=== PATIENT | female | born 1935 | race Caucasian/White ===

== ENCOUNTER → 2016-10-11 | Outpatient (CLI) | payer OTHER ==
[~2016-10-11] VITALS: Ht 149.9 cm; Wt 61.0 kg
[~2016-10-11] MED LIST: ADVAIR 100-501 EACH INH; ADVAIR HFA 45-218 GM IH; AZOR 10-40 MG1 EACH PO; BENTYL 20 MG TA20 M1 PO; BYSTOLIC 5 MG5 M1 PO; CLONIDINE0.1 PO; COMBIVENT INH; COMPOUNDED CREAM TOP; DERMATOP60 GM; HYDRALAZINE 2525 MG PO; LORTAB 5-500 T1 EAC1 PO; LOSARTAN POTAS100 MG PO; MOBIC7.5 M1 PO; NEXIUM40 MG PO; NORVASC5 MG PO; OXYCODONE-ACET1 EACH PO; OXYCONTIN10 M1 PO; OXYCONTIN15 MG PO; PAROXETINE HCL10 MG PO; PERCOCET 5-3251 EACH PO; PREDNISONE 10 M10 M1 PO; PROVENTIL HFA6.7 G1 INH; SINGULAIR 10 MG10 M1 PO; SPIRONOLACTONE25 M1 PO; TIZANIDINE HCL 22 M1 PO; VOLTAREN GEL 1100 G1 TOP
--- NOTE | ~2016-10-11 | HPC ---
[facility] [place] [address] PAIN MANAGEMENT CONSULTATION Name: ALEJANDRA RICO [id number] Admission: 10/11/16 Attend Phys: Kit Schneider DO Discharge: Date of : 33 Report #: [id number] THIS REPORT FOR: //name// CC: Pedro Schneider The patient is an extremely pleasant 81-year-old female well known to pain clinic, being treated for symptomatic cervical spondylosis, myofascial pain requiring complex medication management. Last seen in the pain clinic 07/26/2016. The patient was continued on baseline medication including OxyContin 15 mg b.i.d., Percocet 5/325, limit 45 tablets for 30 days, voltaren gel topically. He returns to pain clinic today noting that medications are providing sufficient analgesia to participate in activities of daily living. However, she is having some increasing pain in the left side of her neck. We had prior done cervical facet joint injections about a year ago, 10/20/2015. PHYSICAL EXAMINATION: Shows an 81-year-old female. BMI is 27.1 kilograms per meter squared. Pain is primarily in neck, left shoulder, she rates it as a 9/10, sharp, aching sensation, exacerbated with stress and turning her head. BMI is 27.1 kilograms per meter squared. Vital signs showed modest hypertension 159/77, pulse 100, respirations 16. Cervical range of motion is limited, tender in the superior cervical facets. Upper extremity strength is preserved. Gait is tandem. Lower extremity strength is preserved. Skin integument is intact. ASSESSMENT: 1. Symptomatic cervical spondylosis, myofascial pain requiring complex medication management. We reviewed the fact that opiate medications are being used to provide analgesia adequate to support activities of daily living, not attempting to achieve a specific pain score on the 0-10 Visual Analog Scale. The current opiate medications are providing sufficient analgesia to allow the patient to participate in activities of daily living. The patient is not exhibiting any aberrant behavior suggestive of drug diversion. The patient is not having any adverse reactions to medications. The patient is not suffering from daytime somnolence or mental acuity changes. The patient is managing opiate-induced constipation with appropriate zqkx-cuj-exolrud agents and dietary considerations. The patient was counseled on concern for caution with operating a motor vehicle while using opiate medications. A physical exam was performed and the patient's functional status was evaluated. All patients with back pain were advised against the bed rest greater than 4 days and were advised to return to normal activities. Pain score assessment was noted and the treatment plan was reviewed with the patient. All current medications, both prescribed and OTC were reviewed and reconciled on the [address] [address] PAIN MANAGEMENT CONSULTATION Name: ALEJANDRA RICO Room #: REG CLI Elaine#: [id number] Admission: 10/11/16 Attend Phys: Kit Schneider DO Discharge: Date of : 33 Report #: [id number] electronic medical record. Tobacco screening was accomplished and smoking cessation was advised when indicated. BMI was noted and diet/exercise modification was recommended for all patients following outside normal parameters. I reviewed with the patient today their responsibilities to safeguard prescription medications, reviewed their responsibility to utilize medications only as prescribed by the physician. They are to seek and receive pain medications only from 1 physician group ( [facility]). They are to use 1 pharmacy and keep the clinic informed if they change pharmacies. Their responsibilities include making followup visits in a timely fashion and to avoid abrupt discontinuation of medication usage. Their responsibilities further include bringing their medications (bottles from the pharmacy with residual pills) to the visit for possible confirmation of pill counts and the patient understands it is their responsibility to submit to random drug screens to ensure both that the medications prescribed are present, and that no other controlled substances are present. All prescriptions provided today were generated electronically. RECOMMENDATION: Continue current medication schedule 2 narcotic unchanged, OxyContin 15 mg b.i.d., Percocet 10/325 one tablet up to 2 a day, limit 45 tablets for 30 days and Voltaren gel topically. I have taken the liberty of writing for 3 months of current medications. 2. Acute exacerbation of cervical spondylosis, left side. RECOMMENDATION: Cervical facet joint injections under fluoroscopy, left C2-C3, C3-C4 and C4-C5. PROCEDURE NOTE: After written informed consent was obtained, the patient was taken to the fluoroscopy suite and placed in prone position. After sterile prep and drape, skin wheals with Xylocaine raised, three 22-gauge stylet needle was placed to contact posterior aspect of the mid lateral mass of the left C2-C3, C3-C4, C4-C5 cervical facets. AP and lateral projections showed good needle placement. A 2 mg of Decadron plus 1 mL of 0.5% preservative-free bupivacaine was injected at all three sites. All three needles removed. The area was cleansed, Band-Aids applied. Fluoroscopy time was under 15 seconds. The patient was discharged in good and stable condition. <ELECTRONICALLY SIGNED> By: Kit Schneider DO 10/14/16 0917 [id number] Kit Schneider, /nt
[2016-10-11 12:26] VITALS: BP 159/77
== END ==
LOC: PAIN 12:00
DX: M47.812 Spondylosis without myelopathy or radiculopathy, cervical region (principal); M47.22 Other spondylosis with radiculopathy, cervical region; M79.1 Myalgia; I10 Essential (primary) hypertension; Z87.891 Personal history of nicotine dependence

== ENCOUNTER → 2017-01-23 | Outpatient (CLI) | payer OTHER ==
[~2017-01-23] VITALS: Ht 149.9 cm; Wt 61.7 kg
--- NOTE | ~2017-01-23 | HPC ---
[facility] [place] [facility] [place] [address] PAIN MANAGEMENT CONSULTATION Name: ALEJANDRA RICO Room #: REG Beba Henry#: [id number] Admission: 01/23/17 Attend Phys: Kit Schneider DO Discharge: Date of : 33 Report #: [id number] THIS REPORT FOR: //name// CC: Pedro Schneider HISTORY OF PRESENT ILLNESS: The patient is a very pleasant 81-year-old female typically treated for cervical spondylosis, myofascial pain requiring complex medication management. Last seen in pain clinic on 10/11/2016. We ostensibly continued the patient on OxyContin 15 mg b.i.d. with Percocet 5/325 one tablet 2-3 times a day, limit 45 tablets for 30 days. Continue his Voltaren gel topically. I did a left C2-C3, C3-C4 and C4-C5 facet joint injections at last visit. That afforded good yet very transient relief for about 3-4 days. I do not think that amount of relief is worth risks of the procedure, we discussed with the patient today. Unfortunately, the patient also did have a little confusion with her medications. She is getting little forgetful with age. She is seen today in the company of an adult daughter who is very supportive. She notes that she had forgotten to mail her last prescription and she went for several days without her opiate analgesics. Piecing together the patient's history, it does not sound like she had terrible opiate withdrawal symptoms, though the daughter notes that she was quite emotional and "angry" during this interval. She is back taking her current medication. Today, I stressed the need to call to make a clinic visit when she turns in her third prescription (the 8-week release prescription). PHYSICAL EXAMINATION: Today shows pleasantly befuddled 81-year-old female with pain in the left neck and shoulder. She rates pain "10" on a 0-10 visual analog scale. Notes pain is exacerbated with turning her head and stress. Physical examination shows BMI of 27.5 kilograms per meter squared. Blood pressure is modestly elevated at 161/99, pulse 79, respirations 20. She is little bit hard of hearing. Cervical range of motion is limited, tender over the left cervical facets. Upper extremity strength is preserved, though range of motion in the left shoulder exacerbates pain. We reviewed the fact that opiate medications are being used to provide analgesia adequate to support activities of daily living, not attempting to achieve a specific pain score on the 0-10 Visual Analog Scale. The current opiate medications are providing sufficient analgesia to allow the patient to participate in activities of daily living. The patient is not exhibiting any aberrant behavior suggestive of drug diversion. The patient is not having any adverse reactions to medications. The patient is not suffering from daytime somnolence or mental acuity changes. The patient is managing opiate-induced constipation with appropriate sfig-frd-gdektaa agents and dietary considerations. The patient was counseled on concern for caution with operating [address] [address] PAIN MANAGEMENT CONSULTATION Name: JACKYALEJANDRA ALEKSANDRA Room #: REG ALEKSANDAR Henry#: [id number] Admission: 01/23/17 Attend Phys: Kit Schneider DO Discharge: Date of : 33 Report #: [id number] a motor vehicle while using opiate medications. A physical exam was performed and the patient's functional status was evaluated. All patients with back pain were advised against the bed rest greater than 4 days and were advised to return to normal activities. Pain score assessment was noted and the treatment plan was reviewed with the patient. All current medications, both prescribed and OTC were reviewed and reconciled on the electronic medical record. Tobacco screening was accomplished and smoking cessation was advised when indicated. BMI was noted and diet/exercise modification was recommended for all patients following outside normal parameters. I reviewed with the patient today their responsibilities to safeguard prescription medications, reviewed their responsibility to utilize medications only as prescribed by the physician. They are to seek and receive pain medications only from 1 physician group ( [facility]). They are to use 1 pharmacy and keep the clinic informed if they change pharmacies. Their responsibilities include making followup visits in a timely fashion and to avoid abrupt discontinuation of medication usage. Their responsibilities further include bringing their medications (bottles from the pharmacy with residual pills) to the visit for possible confirmation of pill counts and the patient understands it is their responsibility to submit to random drug screens to ensure both that the medications prescribed are present, and that no other controlled substances are present. All prescriptions provided today were generated electronically. ASSESSMENT: Cervical spondylosis, myofascial pain requiring complex medication management, stable on baseline medications. RECOMMENDATIONS: Continue current medications unchanged, OxyContin 15 mg b.i.d. and Percocet 5/325, limit 45 tablets for 30 days. I have taken the liberty of putting a small post-it note on the 8-week prescription with her OxyContin and her Percocet reminding the patient to call for an office appointment. Discharged in good and stable condition today after approximately 25-minute visit was spent counseling the patient, reviewing interval history. I told the daughter I appreciated her participation in the clinic visit, again the patient is becoming a little poor of a historian. We did talk a little bit today about using a drug dispensing aide (weekly pill box?) to keep the patient's medication on track. <ELECTRONICALLY SIGNED> By: Kit Schneider DO 01/24/17 0925 [id number] Kit Schneider DO /nt
[2017-01-23 09:55] VITALS: BP 161/99
== END | disposition home or self-care (01) ==
LOC: PAIN 07:55
DX: M47.892 Other spondylosis, cervical region (principal); G89.29 Other chronic pain; M79.1 Myalgia; Z87.891 Personal history of nicotine dependence

== ENCOUNTER → 2017-04-10 | Outpatient (CLI) | payer OTHER ==
[~2017-04-10] VITALS: Ht 149.9 cm; Wt 62.7 kg
[2017-04-10 11:05] VITALS: BP 176/84
== END | disposition home or self-care (01) ==
LOC: PAIN 06:46
DX: M47.812 Spondylosis without myelopathy or radiculopathy, cervical region (principal); M54.81 Occipital neuralgia; G62.9 Polyneuropathy, unspecified; F03.90 Unspecified dementia, unspecified severity, without behavioral disturbance, psychotic disturbance, mood disturbance, and anxiety; Z87.891 Personal history of nicotine dependence

== ENCOUNTER → 2017-06-19 | Outpatient (CLI) | payer OTHER ==
[~2017-06-19] VITALS: Ht 149.9 cm; Wt 63.0 kg
--- NOTE | ~2017-06-19 | HPC ---
[facility] [place] [address] [place] [address] PAIN MANAGEMENT CONSULTATION Name: ALEJANDRA RICO Room #: REG Beba Henry#: [id number] Admission: 06/19/17 Attend Phys: Kit Schneider DO Discharge: Date of : 33 Report #: [id number] THIS REPORT FOR: //name// CC: Pedro Schneider DATE OF SERVICE: 06/19/2017 HISTORY OF PRESENT ILLNESS: The patient is a pleasant 82-year-old female being treated for cervical spondylosis, greater occipital neuralgia, neuropathic pain, requiring high risk complex medication management. Last seen in Pain Clinic on 04/15/2017. We will continue patient on baseline medication including OxyContin 15 mg b.i.d.; Percocet 5/325, 1-2 tablets daily, limit 45 tablets for 30 days; and Voltaren gel topically to the right neck and shoulder. Returns to Pain Clinic today. She has been stable on her baseline medications. She notes her pain is quite elevated today at 10 on a VAS. She had difficulty getting her prescriptions filled, again. Today, we did talk about moving her prescriptions to the pharmacy downstairs. Long story short is that patient's insurance company switched from ____ Pharmacy to another one and the current pharmacy does not always have her low-dose OxyContin and Percocet. She goes for days between refills on medications that should be on a fairly consistent basis. Regarding her hypertension today, she is on multiple antihypertensives including amlodipine, hydralazine. The patient did take her medicine. Blood pressure is 191/89 today. She associates this again with ongoing stress. PHYSICAL EXAMINATION: Otherwise ____ her subjective pain score, 82-year-old female, BMI is 28.1 kg/m2. She is smiling, jovial and moving actually fairly freely. She has pain to the neck, left shoulder, but moves her arms or reasonably well. Again, blood pressure is elevated 191/89, pulse 81, respirations 14. We reviewed the fact that opiate medications are being used to provide analgesia adequate to support activities of daily living, not attempting to achieve a specific pain score on the 0-10 Visual Analog Scale. The current opiate medications are providing sufficient analgesia to allow the patient to participate in activities of daily living. The patient is not exhibiting any aberrant behavior suggestive of drug diversion. The patient is not having any adverse reactions to medications. The patient is not suffering from daytime somnolence or mental acuity changes. The patient is managing opiate-induced constipation with appropriate qldo-ehk-xorebuz agents and dietary considerations. The patient was counseled on concern for caution with operating a motor vehicle while using opiate medications. A physical exam was performed and the patient's functional status was evaluated. [address] [address] PAIN MANAGEMENT CONSULTATION Name: ALEJANDRA RICO Room #: REG CLBeba Henry#: [id number] Admission: 06/19/17 Attend Phys: Kit Schneider DO Discharge: Date of : 33 Report #: [id number] All patients with back pain were advised against the bed rest greater than 4 days and were advised to return to normal activities. Pain score assessment was noted and the treatment plan was reviewed with the patient. All current medications, both prescribed and OTC were reviewed and reconciled on the electronic medical record. Tobacco screening was accomplished and smoking cessation was advised when indicated. BMI was noted and diet/exercise modification was recommended for all patients following outside normal parameters. I reviewed with the patient today their responsibilities to safeguard prescription medications, reviewed their responsibility to utilize medications only as prescribed by the physician. They are to seek and receive pain medications only from 1 physician group ( [facility]). They are to use 1 pharmacy and keep the clinic informed if they change pharmacies. Their responsibilities include making followup visits in a timely fashion and to avoid abrupt discontinuation of medication usage. Their responsibilities further include bringing their medications (bottles from the pharmacy with residual pills) to the visit for possible confirmation of pill counts and the patient understands it is their responsibility to submit to random drug screens to ensure both that the medications prescribed are present, and that no other controlled substances are present. All prescriptions provided today were generated electronically. ASSESSMENT: Chronic pain syndrome, cervical spondylosis, greater occipital neuralgia, neuropathic pain component, requiring high risk complex medication management. RECOMMENDATIONS: 1. Buccal swab today for random drug screen, no aberrant behavior suggestive for drug diversion, simply complying with our opiate consent to treat contract. 2. Renew current medication including OxyContin 15 mg b.i.d.; Percocet 5/325, 1-2 tablets daily, limit 45 tablets for 30 days. I have taken the liberty of writing for 2 prescriptions. The patient is taken them downstairs to the [facility]. Hopefully, she will have more timely refills there. Follow up in 2 months for reevaluation. By: [id number] Kit Schneider, /nt
[2017-06-19 10:53] VITALS: BP 191/89
== END | disposition home or self-care (01) ==
LOC: PAIN 07:05
DX: M47.812 Spondylosis without myelopathy or radiculopathy, cervical region (principal); M54.81 Occipital neuralgia; G62.9 Polyneuropathy, unspecified; I10 Essential (primary) hypertension; Z79.899 Other long term (current) drug therapy; G89.4 Chronic pain syndrome; Z87.891 Personal history of nicotine dependence

== ENCOUNTER → 2017-10-02 | Outpatient (CLI) | payer OTHER ==
[~2017-10-02] VITALS: Ht 149.9 cm; Wt 59.2 kg
[~2017-10-02] MED LIST changes: +AMLODIPINE BESY10 MG PO; +AZITHROMYCIN 2250 MG PO; +BREO ELLIPTA 21 EACH INH; +IPRATROPIU0.2 MG/1 M INH; +KEFLEX250 MG PO; +LEVALBUTER0.63 MG/3 INH; +MOXIFLOXACIN3 ML OPHTHALMIC; +PERCOCET PO; +PREDNISOLONE 13.5 M1; +PREDNISONE 10 M10 MG PO; +PROTONIX 20 MG20 M1 PO; +VOLTAREN GEL 1100 G2 TOP
--- NOTE | ~2017-10-02 | HPC ---
[facility] [place] [address] PAIN MANAGEMENT CONSULTATION Name: ALEJANDRA RICO Room #: REG [facility] Elaine#: [id number] Admission: 10/02/17 Attend Phys: Kit Schneider DO Discharge: Date of : 33 Report #: [id number] THIS REPORT FOR: //name// CC: Pedro Schneider The patient is an 82-year-old female, long known to pain clinic, typically treated for cervical spondylosis, greater occipital neuralgia, requiring high risk complex medication management. The patient has not been seen since May. Continued on OxyContin 15 mg b.i.d. and Percocet 5/325 one tablet 2-3 times a day, limit 45 tablets for 30 days. Voltaren gel topically. She returns to the pain clinic today. We had a prolonged visit, greater than 45 minutes was spent with the patient and her daughter today. Last random drug screen 06/19/2017, was positive for prescribed medications and no others. The patient returns to pain clinic today noting medications generally are sufficient to enable her to participate in activities of daily living; however, she has ongoing pain in the left side of the neck, posterior occiput with ongoing headaches associated with some decreased auditory acuity. Notes pain is exacerbated with stress and turning her head. Tragically her dog was attacked by her granddaughter's dog, she had to put the 6-year-old animal down. She is emotionally distressed about this as one would expect. She has another older dog I believe about 10 or 12 years old at home still. She notes today pain is a 7 on a VAS, sharp, aching sensation, again posterior occiput on the left with some decreased auditory acuity in that side, exacerbated with stress, turning her head, bending or talking on the phone. PHYSICAL EXAMINATION: Again unchanged, 82-year-old female, BMI is 26.4 kg/m2. Blood pressure 151/76, pulse 79 and respirations 16. Alert and oriented to person, place and time, judged to be a reasonable historian, little hard of hearing. Cervical range of motion is limited, tender over the left superior cervical facets or over the greater occipital area. Upper extremity strength is generally preserved. Gait is mildly ataxic, actually tandem gait, but balance is a little poor, though she denies falling. Skin integument is intact. Long discussion today about therapeutic options, about stress in relation to pain. We talked about maintaining medication on appropriate schedule, keeping medications safeguarded (she does have a 4-year-old granddaughter that she watches sometimes). We reviewed the fact that opiate medications are being used to provide analgesia [address] [address] PAIN MANAGEMENT CONSULTATION Name: JACKYALEJANDRA ALEKSANDRA Room #: REG ALEKSANDAR Henry#: [id number] Admission: 10/02/17 Attend Phys: Kit Schneider DO Discharge: Date of : 33 Report #: [id number] adequate to support activities of daily living, not attempting to achieve a specific pain score on the 0-10 Visual Analog Scale. The current opiate medications are providing sufficient analgesia to allow the patient to participate in activities of daily living. The patient is not exhibiting any aberrant behavior suggestive of drug diversion. The patient is not having any adverse reactions to medications. The patient is not suffering from daytime somnolence or mental acuity changes. The patient is managing opiate-induced constipation with appropriate vnxm-sjg-hceukgc agents and dietary considerations. The patient was counseled on concern for caution with operating a motor vehicle while using opiate medications. A physical exam was performed and the patient's functional status was evaluated. All patients with back pain were advised against the bed rest greater than 4 days and were advised to return to normal activities. Pain score assessment was noted and the treatment plan was reviewed with the patient. All current medications, both prescribed and OTC were reviewed and reconciled on the electronic medical record. Tobacco screening was accomplished and smoking cessation was advised when indicated. BMI was noted and diet/exercise modification was recommended for all patients following outside normal parameters. I reviewed with the patient today their responsibilities to safeguard prescription medications, reviewed their responsibility to utilize medications only as prescribed by the physician. They are to seek and receive pain medications only from 1 physician group ( [facility]). They are to use 1 pharmacy and keep the clinic informed if they change pharmacies. Their responsibilities include making followup visits in a timely fashion and to avoid abrupt discontinuation of medication usage. Their responsibilities further include bringing their medications (bottles from the pharmacy with residual pills) to the visit for possible confirmation of pill counts and the patient understands it is their responsibility to submit to random drug screens to ensure both that the medications prescribed are present, and that no other controlled substances are present. All prescriptions provided today were generated electronically. ASSESSMENT: Symptomatic cervical spondylosis, greater occipital neuralgia, neuropathic pain requiring high risk complex medication management, stable on baseline medications. RECOMMENDATION: 1. We reviewed opiate consent to treat contract today. 2. Continue baseline medication unchanged, OxyContin 15 mg b.i.d. 3. We will increase hydrocodone 5/325, she has been using 45 tablets for 30 days, but notes that she does have episodes where she would require 2 tablets fairly regularly. We have elected to increase this to 60 tablets for 30 days, again encouraged using lowest dose possible. Continue Voltaren gel topically. [facility] [address] [place] [address] PAIN MANAGEMENT CONSULTATION Name: ALEJANDRA RICO Room #: URSZULA Henry#: [id number] Admission: 10/02/17 Attend Phys: Kit Schneider DO Discharge: Date of : 33 Report #: [id number] Follow up in 2 months for reevaluation. Discharged in good and stable condition after a 25+ minute visit spent counseling the patient. <ELECTRONICALLY SIGNED> By: Kit Schneider DO 10/03/17 0810 1220 [id number] Kit Schneider DO /nt
[2017-10-02 10:53] VITALS: BP 151/76
== END ==
LOC: PAIN 07:09
DX: M47.892 Other spondylosis, cervical region (principal); M54.81 Occipital neuralgia; Z79.899 Other long term (current) drug therapy

== ENCOUNTER 2017-11-11 13:53 | Inpatient (IN) | payer OTHER ==
[~2017-11-11] VITALS: Ht 149.9 cm; Wt 60.3 kg
--- NOTE | ~2017-11-11 | H ---
[facility] [place] [address] HISTORY AND PHYSICAL Name: ALEJANDRA RICO Room #: 431-P ADM IN M.R.#: [id number] Admission: 11/11/17 Attend Phys: Stephanie Guzman Discharge: Date of : 31 Report #: [id number] THIS REPORT FOR: //name// CC: Pedro Anne DATE OF SERVICE: 11/11/2017 CHIEF COMPLAINT: Shortness of breath. HISTORY OF PRESENT ILLNESS: The patient is an 82-year-old female with a history of COPD, came to the Emergency Room with complaints of shortness of breath. She said for a couple of weeks, she has had increased wheezing and nonproductive cough and gradual worsening shortness of breath, she thinks for about a month. Several weeks ago, she had an eye infection, which required treatment with antibiotic and steroid drops and she has been seeing the soil analyst. This has gradually been clearing, so her daughter thinks that maybe some of her pulmonary symptoms have been minimized as they were focused on treating her eye infection. She has had no fever, chills and just scant sputum production she described as yellow to green phlegm. She has had a lot of wheezing and a nonproductive cough. She does take prednisone at home and has been self dosing to treat her symptoms as well. PAST MEDICAL HISTORY: COPD due to asthma, hypertension. PAST SURGICAL HISTORY: She has had abdominal surgery in 2007, hysterectomy, appendectomy. FAMILY HISTORY: Noncontributory. SOCIAL HISTORY: No chronic alcohol or tobacco use. She lives with her daughter. ALLERGIES: SULFA. MEDICATIONS: Percocet, OxyContin, eyedrops, Protonix, Paxil, Singulair, dicyclomine, Advair, Combivent, oral prednisone 10 mg, Aneudy 10/40 mg, hydralazine 25 mg b.i.d. REVIEW OF SYSTEMS: As above. She denies headache, chest pain, fever, chills, nausea, vomiting, diarrhea, constipation, dysuria, syncope. OBJECTIVE: VITAL SIGNS: Temperature 36.9, pulse , respirations 24, blood pressure 119/92, O2 sat 97% on room air. GENERAL: She is awake and alert, no distress. HEAD AND NECK: Unremarkable. She is hard of hearing. She recognized me. [address] [place] [address] HISTORY AND PHYSICAL Name: ALEJANDRA RICO Room #: 431-P [facility] IN M.R.#: [id number] Admission: 11/11/17 Attend Phys: Stephanie Guzman Discharge: Date of : 33 Report #: [id number] NECK: No JVD. LUNGS: She has bilateral expiratory wheezing with a nonproductive cough. HEART: Regular, no murmur. ABDOMEN: Soft, normoactive bowel sounds. EXTREMITIES: No cyanosis, clubbing, but just trace edema in the right lower leg. NEUROLOGIC: Cranial nerves intact. Speech is fluent. Global strength 4/5 and equal bilaterally. LABORATORY AND X-RAY: Reviewed. ASSESSMENT: 1. Chronic obstructive pulmonary disease exacerbation. 2. Hypertension. 3. Chronic pain syndrome with chronic narcotic use. PLAN: Steroids, antibiotics, nebulized treatments and respiratory care to continue. I will ask Dr. Mcmillan to see her in consultation. She does have slight edema in the right leg, so order ultrasound, but she does not have any resting tachycardia or resting hypoxia to suggest pulmonary embolus. We will await the ultrasound result at this point. Lovenox for DVT prophylaxis. <ELECTRONICALLY SIGNED> By: Peewee Gan MD 11/12/17 1311 1635 1725 Peewee Gan MD /nt
--- NOTE | ~2017-11-11 | 2DMMODE ---
[facility] [address] [place] [address] 2 D/M-MODE ECHOCARDIOGRAM Name: JACKYALEJANDRA Room #: 431-P ADM IN M.R.#: [id number] Admission: 11/11/17 Attend Phys: Pedro Haney Discharge: Date of : 31 Date of Service: 11/13/17 1250 Report #: [id number] THIS REPORT FOR: //name// APPROVED REPORT Study performed: 11/13/2017 11:19:02 EXAM: Comprehensive 2D, Doppler, and color-flow Echocardiogram Patient Location: Echo lab Room #: 431 Status: routine BSA: 1.55 HR: 89 bpm BP: 161/82 mmHg Rhythm: Sinus/irregular Other Information Study Quality: Good/low parasternal window 2D Dimensions RVDd: 30.54 mm LVEF(%): 57.43 (>50%) IVSd: 8.37 (7-11mm) LVOT Diam: 18.93 (18-24mm) LVDd: 54.11 mm PWd: 8.59 (7-11mm) LVDs: 37.61 (25-40mm) Aortic Root: 34.44 mm Toro's LVEF: 57.43 % Volumes Left Atrial Volume (Systole) Single Plane 4CH: 76.52 mL Single Plane 2CH: 53.09 mL LA ESV Index: 43.00 mL/m2 Aortic Valve AoV Peak John.: 2.20 m/s AO Peak Gr.: 19.36 mmHg LVOT Max P.24 mmHg LVOT Max V: 1.52 m/s LUIZA Vmax: 1.94 cm2 Mitral Valve E/A Ratio: 0.7 MV Decel. Time: 261.59 ms MV E Max John.: 0.99 m/s MV A John.: 1.50 m/s MV PHT: 75.86 ms [facility] [place] [address] 2 D/M-MODE ECHOCARDIOGRAM Name: ALEJANDRA RICO Room #: 431-P [facility] IN M.R.#: [id number] Admission: 11/11/17 Attend Phys: Pedro Haney Discharge: Date of : 33 Date of Service: 11/13/17 1250 Report #: [id number] IVRT: 64.59 ms Pulmonary Valve PV Peak John.: 1.51 m/s PV Peak Gr.: 9.08 mmHg Pulmonary Vein P Vein S: 0.82 m/s P Vein A: 0.40 m/s P Vein D: 0.59 m/s P Vein A Dur.: 129.2 msec P Vein S/D Ratio: 1.39 Tricuspid Valve TR Peak John.: 2.99 m/s RAP Estimate: 5.00 mmHg TR Peak Gr.: 35.69 mmHg PA Pressure: 41.00 mmHg Left Ventricle The left ventricle is normal size. There is normal LV segmental wall motion. There is normal left ventricular wall thickness. Left ventricular systolic function is hyperdynamic. LVEF is 65-70%. Mild diastolic dysfunction is present (impaired relaxation pattern). Right Ventricle The right ventricle is normal size. The right ventricular systolic function is normal. Atria Left atrium is severely dilated. The right atrium size is normal. Aortic Valve Aortic valve leaflets are thickened. Trace aortic regurgitation. There is no aortic valvular stenosis. Mitral Valve Mitral valve leaflets are mildly thickened. Mild mitral regurgitation. Tricuspid Valve The tricuspid valve is normal in structure. Mild tricuspid regurgitation. Estimated PAP is 40-45mmHg. Pulmonic Valve Pulmonic valve is not well visualized. [employer] [address] [address] 2 D/M-MODE ECHOCARDIOGRAM Name: ALEJANDRA RICO Room #: 431-P [facility] IN [facility]#: [id number] Admission: 11/11/17 Attend Phys: Pedro Haney Discharge: Date of : 33 Date of Service: 11/13/17 1250 Report #: [id number] The aortic root is normal in size. The ascending aorta is normal in size. IVC is normal in size and collapses >50% with inspiration. Pericardium There is no pericardial effusion. <Conclusion> Left ventricular systolic function is hyperdynamic. There is normal LV segmental wall motion. LVEF is 65-70%. Left atrium is severely dilated. Aortic valve leaflets are thickened. Trace aortic regurgitation, no stenosis. Mitral valve leaflets are mildly thickened. Mild mitral regurgitation. Mild tricuspid regurgitation. Estimated pulmonary artery pressure is 40-45mmHg. There is no pericardial effusion. <ELECTRONICALLY SIGNED> By: Nj Carlos MD, FACC 11/13/17 1250 1250 49 Nj Carlos MD, FACC /INF
--- NOTE | ~2017-11-11 | EKG ---
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 : 1935 Requested By: Tristin Stockton Order Number: [id number] MD: Nj Carlos Measurements Intervals [place] Rate: 96 P: -55 MN: 138 QRS: 43 QRSD: 144 T: 13 QT: 400 QTc: 506 Interpretive Statements Sinus or ectopic atrial rhythm Frequent supraventricular complexes Right bundle branch block Compared to ECG 05/04/2009 07:29:11 Atrial premature complex(es) now present Electronically Signed On 11-12-2017 8:36:32 [employer] by Nj Carlos [email or web address] <ELECTRONICALLY SIGNED> By: Nj Carlos MD, [facility] 11/12/17 0836 1427 1427 Nj Carlos MD, [facility] /EPI
--- NOTE | ~2017-11-11 | D ---
[facility] [place] [address] DISCHARGE SUMMARY Name: ALEJANDRA RICO Room #: 431-P [facility] IN M.R.#: [id number] Admission: 11/11/17 Attend Phys: Stephanie Guzman Discharge: 11/21/17 Date of : 33 Report #: [id number] THIS REPORT FOR: //name// CC: Pedro Anne FINAL DIAGNOSES: 1. Chronic obstructive pulmonary disease exacerbation. 2. Asthma. 3. Hypertension. 4. Acute sinusitis. HOSPITAL COURSE: The patient was admitted with shortness of breath. She was treated with steroids, antibiotics, nebulized treatments and followed by the Pulmonary Service. PE was ruled out. Home medications were continued. There were signs and symptoms of sinusitis contributing to her issue and Dr. Mcmillan felt this will probably need followup as an outpatient. She made slow and steady progress and was weaned off oxygen during the course of her stay. She still had diffuse wheezing that appeared close to baseline. She was walking the halls 100 feet without oxygen and in no distress. PHYSICAL EXAMINATION: On the day of discharge: GENERAL: She was awake and alert with stable vital signs. LUNGS: Had diffuse expiratory wheezing. HEART: Regular, with no murmur. ABDOMEN: Soft. Normoactive bowel sounds. EXTREMITIES: Showed no edema. DISPOSITION: She will be discharged to home to resume her home medications, with the addition of Xopenex nebulized treatments, prednisone 10 mg twice a day until she follows up in the office and consideration of referral to ENT as an outpatient. <ELECTRONICALLY SIGNED> By: Peewee Gan MD 11/24/17 1026 0856 0907 Peewee Gan MD /nt
[~2017-11-11 13:53] MED LIST changes: -AMLODIPINE BESY10 MG PO; -AZITHROMYCIN 2250 MG PO; -BREO ELLIPTA 21 EACH INH; -IPRATROPIU0.2 MG/1 M INH; -KEFLEX250 MG PO; -LEVALBUTER0.63 MG/3 INH; -MOXIFLOXACIN3 ML OPHTHALMIC; -PERCOCET PO; -PREDNISOLONE 13.5 M1; -PREDNISONE 10 M10 MG PO; -PROTONIX 20 MG20 M1 PO; -VOLTAREN GEL 1100 G2 TOP
[2017-11-11 14:00] VITALS: BP 119/92
[2017-11-11] MEDS ORDERED: MOXIFLOXACIN3 ML OPHTHALMIC (14:55)
[2017-11-11] MEDS ORDERED: PREDNISOLONE 13.5 M1 (14:56)
[2017-11-11] MEDS ORDERED: PROTONIX 20 MG20 M1 PO (14:56)
[2017-11-11 15:00] LABS: ABSOLUTE NEUTROPHILS 4.6 thou/uL (1.4-8.2); BASOPHILS 1.3 % (0.0-2.0); EOSINOPHILS 12.8 % (0.0-3.0); HEMATOCRIT 35.7 % (37.0-47.0); HEMOGLOBIN 11.7 gm/dL (12.0-15.0); LYMPHOCYTES 15.8 % (24.0-44.0); MCH 28.6 pg (26.0-34.0); MCHC 32.9 g/dL (28.0-37.0); MCV 86.8 fL (80.0-100.0); MONOCYTES 7.2 % (1.0-8.0); PLATELET COUNT 353 thou/uL (150-400); POLYS 62.9 % (36.0-66.0); RBC 4.11 mil/uL (4.20-5.00); RDW 15.1 % (10.5-14.5); WBC 7.4 thou/uL (4.0-11.0)
[2017-11-11 15:06] LABS: ANION GAP 9 mmol/L (7-16); BUN 15 mg/dL (7-18); CALCIUM 9.4 mg/dL (8.5-10.1); CHLORIDE 107 mmol/L (98-107); CO2 28 mmol/L (21-32); CREATININE 0.8 mg/dL (0.6-1.0); GLUCOSE 122 mg/dL (74-106); POTASSIUM 3.9 mmol/L (3.5-5.1); SODIUM 144 mmol/L (136-145)
[2017-11-11 15:13] LABS: TROPONIN-I < 0.04 ng/mL (<0.06)
[2017-11-11 16:46] VITALS: BP 141/67
[2017-11-11 17:06] VITALS: BP 111/89
[2017-11-11 21:47] VITALS: BP 133/70
[2017-11-12 04:00] VITALS: BP 142/58
[2017-11-12 07:45] VITALS: BP 128/64
[2017-11-12 16:15] VITALS: BP 123/53
[2017-11-12 20:30] VITALS: BP 143/76
[2017-11-13 04:07] LABS: ABSOLUTE NEUTROPHILS 7.7 thou/uL (1.4-8.2); HEMATOCRIT 30.8 % (37.0-47.0); HEMOGLOBIN 10.3 gm/dL (12.0-15.0); LYMPHOCYTES 8.1 % (24.0-44.0); MCHC 33.4 g/dL (28.0-37.0); MCV 86.7 fL (80.0-100.0); MONOCYTES 2.3 % (1.0-8.0); PLATELET COUNT 342 thou/uL (150-400); POLYS 89.6 % (36.0-66.0); RBC 3.55 mil/uL (4.20-5.00); RDW 14.7 % (10.5-14.5); WBC 8.6 thou/uL (4.0-11.0)
[2017-11-13 04:30] VITALS: BP 127/92
[2017-11-13 04:30] LABS: ALBUMIN 2.7 g/dL (3.4-5.0); CALCIUM 8.7 mg/dL (8.5-10.1); CREATININE 0.8 mg/dL (0.6-1.0); POTASSIUM 4.1 mmol/L (3.5-5.1); TOTAL BILIRUBIN 0.2 mg/dL (<0.1-1.0)
[2017-11-13 07:59] VITALS: BP 161/82
[2017-11-13 12:10] LABS: IgA 145 mg/dL (64-422); IgG 584 mg/dL (700-1600); IgM 45 mg/dL (26-217)
[2017-11-13 16:08] VITALS: BP 135/55
[2017-11-14 03:00] VITALS: BP 152/71
[2017-11-14 07:22] VITALS: BP 141/74
[2017-11-14 15:00] VITALS: BP 140/76
[2017-11-14 20:00] VITALS: BP 151/58
[2017-11-15] VITALS: BP 180/74
[2017-11-15 03:00] VITALS: BP 172/67
[2017-11-15 08:00] VITALS: BP 155/68
[2017-11-15 15:14] VITALS: BP 159/70
[2017-11-15 20:00] VITALS: BP 159/60
[2017-11-16 05:00] VITALS: BP 151/59
[2017-11-16 08:42] VITALS: BP 151/66
[2017-11-16 15:46] VITALS: BP 146/74
[2017-11-16 20:00] VITALS: BP 162/74
[2017-11-17 04:17] VITALS: BP 146/65
[2017-11-17 07:43] VITALS: BP 199/98
[2017-11-17 16:26] VITALS: BP 142/64
[2017-11-17 20:00] VITALS: BP 156/60
[2017-11-18 00:09] LABS: ADENOVIRUS Negative (Negative); INFLUENZA A Negative (Negative); INFLUENZA B Negative (Negative); METAPNEUMOVIRUS Negative (Negative); PARAINFLUENZA 1 Negative (Negative); PARAINFLUENZA 2 Negative (Negative); PARAINFLUENZA 3 Negative (Negative); RHINOVIRUS Negative (Negative); RSV A Negative (Negative); RSV B Negative (Negative)
[2017-11-18 04:07] VITALS: BP 154/60
[2017-11-18 07:50] VITALS: BP 142/71
[2017-11-18 16:20] VITALS: BP 138/66
[2017-11-18 20:00] VITALS: BP 140/72
[2017-11-19 03:46] VITALS: BP 132/74
[2017-11-19 07:40] VITALS: BP 152/56
[2017-11-19 20:00] VITALS: BP 100/55
[2017-11-20 04:00] VITALS: BP 143/82
[2017-11-20 08:00] VITALS: BP 178/82
[2017-11-20 16:20] VITALS: BP 139/76
[2017-11-20 19:25] VITALS: BP 152/48
[2017-11-21 05:28] VITALS: BP 132/67
[2017-11-21 07:50] VITALS: BP 153/72
[2017-11-21] MEDS ORDERED: IPRATROPIU0.2 MG/1 M INH (08:50)
[2017-11-21] MEDS ORDERED: AZITHROMYCIN 2250 MG PO (08:50)
[2017-11-21] MEDS ORDERED: LEVALBUTER0.63 MG/3 INH (08:51)
[2017-11-21] MEDS ORDERED: PREDNISONE 10 M10 M1 PO (08:51)
[2017-11-21 10:58] VITALS: BP 153/72
[2017-12-25] MEDS ORDERED: PREDNISONE 10 M10 MG PO ×2 (11:40→11:41)
[2017-12-25] MEDS ORDERED: SINGULAIR 10 MG10 M1 PO (11:43)
[2017-12-25] MEDS ORDERED: OXYCONTIN15 MG PO (12:02)
[2017-12-25] MEDS ORDERED: PERCOCET PO (12:02)
[2017-12-25] MEDS ORDERED: PERCOCET 5-3251 EACH PO ×2 (12:02)
[2017-12-25] MEDS ORDERED: VOLTAREN GEL 1100 G1 TOP (12:02)
[2018-02-19] MEDS ORDERED: PERCOCET PO (10:09)
[2018-02-19] MEDS ORDERED: VOLTAREN GEL 1100 G1 TOP (10:09)
[2018-02-19] MEDS ORDERED: OXYCONTIN15 MG PO ×2 (10:09→10:12)
[2018-02-19] MEDS ORDERED: PERCOCET 5-3251 EACH PO (10:09)
[2018-03-13] MEDS ORDERED: AMLODIPINE BESY10 MG PO (10:09)
[2018-05-06] MEDS ORDERED: KEFLEX250 MG PO (09:28)
[2018-05-06] MEDS ORDERED: BREO ELLIPTA 21 EACH INH (09:29)
[2018-05-06] MEDS ORDERED: VOLTAREN GEL 1100 G1 TOP (09:34)
[2018-05-06] MEDS ORDERED: PERCOCET 5-3251 EACH PO (09:34)
[2018-05-06] MEDS ORDERED: PERCOCET PO (09:34)
[2018-05-06] MEDS ORDERED: OXYCONTIN15 MG PO (09:34)
[2018-05-22] MEDS ORDERED: VOLTAREN GEL 1100 G2 TOP ×2 (08:17→08:18)
== END 2017-11-21 13:33 | disposition home or self-care (01) | DRG 190 ==
LOC: ER 13:53 → 4E 16:01 → EROBS 16:01 → 4E 17:32 → ENTRNSPT 11-21 13:22 → EDTRNSPTSTS 11-21 13:24 → 4E 11-21 13:33
PROVIDERS: Emergency Medicine; Internal Medicine Geriatric Medicine; Internal Medicine Pulmonary Disease
PROC: 02HV33Z Insertion of Infusion Device into Superior Vena Cava, Percutaneous Approach (ICD-10-PCS; principal; 2017-11-13)
DX: J44.1 Chronic obstructive pulmonary disease with (acute) exacerbation (principal); E43 Unspecified severe protein-calorie malnutrition; I10 Essential (primary) hypertension; G89.29 Other chronic pain; J01.90 Acute sinusitis, unspecified; R49.0 Dysphonia; D72.1 Eosinophilia; K58.9 Irritable bowel syndrome, unspecified; Z79.899 Other long term (current) drug therapy; Z90.710 Acquired absence of both cervix and uterus; Z88.2 Allergy status to sulfonamides; Z87.891 Personal history of nicotine dependence; Z23 Encounter for immunization; Z68.26 Body mass index [BMI] 26.0-26.9, adult; Z90.49 Acquired absence of other specified parts of digestive tract
CPT/HCPCS: 10183; 27000

== ENCOUNTER → 2017-12-25 | Outpatient (CLI) | payer OTHER ==
[~2017-12-25] VITALS: Ht 149.9 cm; Wt 58.7 kg
[~2017-12-25] MED LIST changes: +AZITHROMYCIN 2250 MG PO; +IPRATROPIU0.2 MG/1 M INH; +LEVALBUTER0.63 MG/3 INH; +MOXIFLOXACIN3 ML OPHTHALMIC; +PERCOCET PO; +PREDNISOLONE 13.5 M1; +PREDNISONE 10 M10 MG PO; +PROTONIX 20 MG20 M1 PO
--- NOTE | ~2017-12-25 | HPC ---
[facility] [place] [address] PAIN MANAGEMENT CONSULTATION Name: ALEJANDRA RICO Room #: REG [facility] Elaine#: [id number] Admission: 12/25/17 Attend Phys: Kit Schneider DO Discharge: Date of : 33 Report #: [id number] THIS REPORT FOR: //name// CC: Pedro Schneider HISTORY OF PRESENT ILLNESS: The patient is an 82-year-old female, long treated for cervical spondylosis, greater occipital neuralgia, chronic pain syndrome requiring complex medication management. Last seen in the pain clinic on 10/02/2017. The patient has been continued on OxyContin 15 mg b.i.d. with Percocet 5/325 up to b.i.d. for breakthrough pain. She returns to pain clinic today. She has been in the hospital, 11/11/2017 through 11/18/2017 for exacerbation of COPD. She is seen in the company of her daughter who is supportive. She notes pain is primarily in the neck and left shoulder, exacerbated with cervical range of motion. Rates subjective pain score of 8 on a VAS. 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 She started to become little cognitively impaired, which we have slowly noticed over the years. Today, however, we had a prolonged visit, from 11:43-12:15, greater than 50% of the 25 plus minutes of the visit spent in counseling the patient, reviewing issues with her daughter. During the pill count, it appeared that she is little short on her medications. Given the fact she was in the hospital for full week, she should still have medicines at home. She does live with her 29-year-old granddaughter and 4-year-old great grandchild. There have been no concerning issues suggesting for drug diversion and this is the first time there has been a discrepancy in her medication. The patient's daughter has agreed today to take responsibility for managing the medications that will safeguard them. We will continue current medication for 2 months, have them return with a pill count. Obviously concerned if medication is getting diverted and equally concerned that if medicine is getting diverted and we suddenly start the patient back on what I assume she was taking, she may have some symptoms of opiate relative overdose. We discussed this today. PHYSICAL EXAMINATION: Otherwise is relatively unchanged, 82-year-old female, BMI of 26.1 kilograms per meter squared. Blood pressure is elevated today 192/88, pulse 80, respirations 16. She admits to not taking her blood pressure medicine today. Cervical range of motion is limited. Does have tenderness over the splenius capitis, left greater occipital ridge, though no discrete trigger points are noted. Upper extremity strength is generally symmetric, rises from chair using armrest, gait is tandem. We reviewed the fact that opiate medications are being used to provide analgesia adequate to support activities of daily living, not attempting to achieve a specific pain score on the 0-10 Visual Analog Scale. The current opiate medications are providing sufficient analgesia to allow the patient to [address] [address] PAIN MANAGEMENT CONSULTATION Name: ALEJANDRA RICO [id number] Admission: 12/25/17 Attend Phys: Kit Schneider DO Discharge: Date of : 33 Report #: [id number] participate in activities of daily living. The patient is not exhibiting any aberrant behavior suggestive of drug diversion. The patient is not having any adverse reactions to medications. The patient is not suffering from daytime somnolence or mental acuity changes. The patient is managing opiate-induced constipation with appropriate dfrp-jov-uyqbuml agents and dietary considerations. The patient was counseled on concern for caution with operating a motor vehicle while using opiate medications. A physical exam was performed and the patient's functional status was evaluated. All patients with back pain were advised against the bed rest greater than 4 days and were advised to return to normal activities. Pain score assessment was noted and the treatment plan was reviewed with the patient. All current medications, both prescribed and OTC were reviewed and reconciled on the electronic medical record. Tobacco screening was accomplished and smoking cessation was advised when indicated. BMI was noted and diet/exercise modification was recommended for all patients following outside normal parameters. I reviewed with the patient today their responsibilities to safeguard prescription medications, reviewed their responsibility to utilize medications only as prescribed by the physician. They are to seek and receive pain medications only from 1 physician group ( [facility]). They are to use 1 pharmacy and keep the clinic informed if they change pharmacies. Their responsibilities include making followup visits in a timely fashion and to avoid abrupt discontinuation of medication usage. Their responsibilities further include bringing their medications (bottles from the pharmacy with residual pills) to the visit for possible confirmation of pill counts and the patient understands it is their responsibility to submit to random drug screens to ensure both that the medications prescribed are present, and that no other controlled substances are present. All prescriptions provided today were generated electronically. ASSESSMENT: 1. Neuropathic pain. 2. Left greater occipital neuralgia. 3. Cervical spondylosis. 4. Chronic complex medication management. RECOMMENDATIONS: As noted above, we elected to continue OxyContin 15 mg b.i.d.; Percocet 5/325 only for breakthrough, limit 45 tablets for 30 days; continue Voltaren gel topically. Last random drug screen 06/18/2017 was positive for prescribed medications. We [facility] [address] [place] [address] PAIN MANAGEMENT CONSULTATION Name: JACKYALEJANDRA ALEKSANDRA [id number] Admission: 12/25/17 Attend Phys: Kit Schneider DO Discharge: Date of : 33 Report #: [id number] will follow up in 2 months and repeat the drug screen. We will do pill count at that time. <ELECTRONICALLY SIGNED> By: Kit Schneider DO 12/26/17 0944 1631 49 Kit Schneider DO /nt
[2017-12-25 11:26] VITALS: BP 192/88
== END ==
LOC: PAIN 07:06
DX: M54.12 Radiculopathy, cervical region (principal); Z79.899 Other long term (current) drug therapy

== ENCOUNTER 2018-02-16 05:36 | Day surgery (SDC) | payer OTHER ==
[~2018-02-16] VITALS: Ht 149.9 cm; Wt 57.6 kg
--- NOTE | ~2018-02-16 | O ---
[facility] [place] [address] OPERATIVE REPORT Name: ALEJANDRA RICO Room #: DEP [facility]#: [id number] Admission: 02/16/18 Attend Phys: Jonathan Boland MD Discharge: 02/16/18 Date of : 33 Report #: [id number] THIS REPORT FOR: //name// CC: Moncho Boland DATE OF SERVICE: 02/16/2018 PREOPERATIVE DIAGNOSIS: Right upper lip lesion measuring 1.4 x 1.6 cm and a second lesion adjacent to this. POSTOPERATIVE DIAGNOSIS: Right upper lip lesion x 2. PROCEDURES PERFORMED: 1. Excision of the larger right upper lip lesion with frozen section. 2. Shave biopsy fulguration of the base of the second lesion. ANESTHESIA: IV sedation and local 0.25% Marcaine. COMPLICATIONS: None. SURGEON: Jonathan Boland M.D. ESTIMATED BLOOD LOSS: 5 mL. PROCEDURE NOTE: With the patient under IV sedation, the right upper lip was prepped and draped in sterile fashion. A 0.25% Marcaine was used to anesthetize the skin. The main lesion, which is quite large, was excised in a vertical elliptical manner. This is over 2 x 3.5 cm in length. I got about 2 mm margin all around this. The subcutaneous tissue was freed of any involvement and excised. The lesion was then sent to pathology. A suture was marked at the 2 o'clock position or upper medial side. The wound was then closed with 5-0 nylon suture and it came together well. The adjacent lesion was actually too close to the edge of the suture. This was shaved, cauterized and the shaved off specimen sent to pathology. Frozen section shows margins to be clear and the lesion appears to be underneath the epidermis. I am not quite sure what exactly this is, but the pathologist thought that this was cancerous maybe from a follicle. The deep margin and lateral margins were clear. The patient was awakened and taken to recovery and tolerated the procedure well. <ELECTRONICALLY SIGNED> By: Jonathan Boland MD 02/19/18 1807 2149 2216 Jonathan Boland MD /nt
[2018-02-16 08:34] VITALS: BP 157/88
[2018-02-16 10:36] VITALS: BP 157/88
[2018-02-19] MEDS ORDERED: PERCOCET 5-3251 EACH PO (10:09)
[2018-02-19] MEDS ORDERED: OXYCONTIN15 MG PO ×2 (10:09→10:12)
[2018-02-19] MEDS ORDERED: PERCOCET PO (10:09)
[2018-02-19] MEDS ORDERED: VOLTAREN GEL 1100 G1 TOP (10:09)
== END 2018-02-16 11:00 | disposition home or self-care (01) ==
LOC: TBA 05:36 → OR 05:36
DX: C44.01 Basal cell carcinoma of skin of lip (principal); D22.0 Melanocytic nevi of lip; I10 Essential (primary) hypertension; J44.9 Chronic obstructive pulmonary disease, unspecified; Z98.890 Other specified postprocedural states; Z88.2 Allergy status to sulfonamides; Z79.899 Other long term (current) drug therapy; Z87.19 Personal history of other diseases of the digestive system; Z90.49 Acquired absence of other specified parts of digestive tract; Z90.710 Acquired absence of both cervix and uterus; Z79.891 Long term (current) use of opiate analgesic
CPT/HCPCS: 50010; 50101; 56526; 62110; 62850; 70005

== ENCOUNTER → 2018-02-26 | Outpatient (CLI) | payer OTHER ==
[~2018-02-26] VITALS: Ht 149.9 cm; Wt 62.4 kg
--- NOTE | ~2018-02-26 | HPC ---
[facility] [place] [address] PAIN MANAGEMENT CONSULTATION Name: ALEJANDRA RICO Room #: REG [facility] Elaine#: [id number] Admission: 02/26/18 Attend Phys: Kit cShneider DO Discharge: Date of : 33 Report #: [id number] THIS REPORT FOR: //name// CC: Pedro Schneider The patient is a very pleasant 83-year-old female typically treated for cervical spondylosis and greater occipital neuralgia, requiring complex medication management. At last visit on 02/19/2018, she was having ongoing lumbar radicular symptoms in a left L4 radicular pattern. We had discussed therapeutic interventions including epidural injection under fluoroscopy. She presents to pain clinic today for this procedure. She has ongoing pain in the low back, left buttock, leg, posterior thigh down to the foot with positive neural tensioning and neural physical exam. ASSESSMENT: Symptomatic lumbar radiculopathy. PROCEDURE: Lumbar epidural injection under fluoroscopy. PROCEDURE NOTE: After both written and informed consent to include risk of spinal cord damage, increased pain, weakness and dural puncture, the patient was taken to the fluoroscopy suite, placed in the prone position. After sterile prep and drape, a skin wheal with lidocaine was raised. A 22-gauge epidural Tuohy needle was inserted in the midline at L4-L5 with good loss to resistance. Negative aspiration for cerebrospinal fluid or blood was noted. Then 1 mL of Omnipaque under biplanar fluoroscopy showed good spread within the epidural space. This was followed with 80 mg of triamcinolone plus 1 mL of 1.5% preservative-free Xylocaine, 0.5 mL Xylocaine was then injected to flush the needle; it was removed. The patient was monitored for an appropriate period of time and discharged in good and stable condition. <ELECTRONICALLY SIGNED> By: Kit Schneider DO 02/27/18 0656 1116 1457 Kit Schneider DO /nt
[2018-02-26 09:36] VITALS: BP 184/90
== END | disposition home or self-care (01) ==
LOC: PAIN 07:00
DX: M54.16 Radiculopathy, lumbar region (principal); G89.29 Other chronic pain; J44.1 Chronic obstructive pulmonary disease with (acute) exacerbation; Z79.891 Long term (current) use of opiate analgesic; Z98.890 Other specified postprocedural states; Z87.891 Personal history of nicotine dependence; Z88.2 Allergy status to sulfonamides; Z79.899 Other long term (current) drug therapy

== ENCOUNTER → 2018-05-05 | Outpatient (CLI) | payer OTHER ==
[~2018-05-05] MED LIST changes: +AMLODIPINE BESY10 MG PO; +BREO ELLIPTA 21 EACH INH; +KEFLEX250 MG PO
== END ==
LOC: RAD 14:50
DX: M25.572 Pain in left ankle and joints of left foot (principal); M10.9 Gout, unspecified; J44.9 Chronic obstructive pulmonary disease, unspecified

== ENCOUNTER 2018-05-06 16:52 | Inpatient (IN) | payer OTHER ==
[~2018-05-06] VITALS: Ht 144.8 cm; Wt 63.5 kg
--- NOTE | ~2018-05-06 | D ---
[facility] [place] [address] DISCHARGE SUMMARY Name: ALEJANDRA RICO Room #: 220-P ADM IN M.R.#: [id number] Admission: 05/06/18 Attend Phys: Peewee Gan MD Discharge: Date of : 33 Report #: [id number] THIS REPORT FOR: //name// CC: Pedro Gan FINAL DIAGNOSES: 1. Cellulitis, left foot. 2. Chronic obstructive pulmonary disease. HOSPITAL COURSE: The patient was admitted with pain and swelling in the left foot. X-ray was negative for fracture. Uric acid negative for gout. Doppler ultrasound negative for DVT. Arterial Doppler showed no occlusive disease. She was treated with antibiotics and showed improvement. By the time of discharge, the redness and swelling had resolved. She only had mild pain. By the time of discharge, she was able to walk with a roller walker. PHYSICAL EXAMINATION ON THE DAY OF DISCHARGE: GENERAL: She was awake and alert. VITAL SIGNS: Stable. LUNGS: Clear. HEART: Regular. ABDOMEN: Soft, normoactive bowel sounds. EXTREMITIES: No edema. There was a slight tenderness in the left foot, but no redness. DISPOSITION: She is discharged to home. Diet and activity as tolerated. Resume all medications. Follow up with Dr. Anne in 2 weeks. She will finish a course of cephalexin prescribed earlier in the week. <ELECTRONICALLY SIGNED> By: Peewee Gan MD 05/08/18 1211 1132 1155 Peewee Gan MD /abilio
--- NOTE | ~2018-05-06 | H ---
[facility] [place] [address] HISTORY AND PHYSICAL Name: ALEJANDRA RICO Room #: 220-P [facility] IN M.R.#: [id number] Admission: 05/06/18 Attend Phys: Peewee Gan MD Discharge: Date of : 33 Report #: [id number] THIS REPORT FOR: //name// CC: Pedro Gan DATE OF SERVICE: 05/07/2018 CHIEF COMPLAINT: Left foot pain and swelling. HISTORY OF PRESENT ILLNESS: The patient is an 83-year-old female admitted through the Emergency Room with fever and swelling of the left foot. She said for about the last week she has had redness and swelling of the left medial foot. She denied any injury or trauma. She has had pain with difficulty walking for several days. I saw her in the office 2 days ago and she had temperature to 101. Blood cultures were obtained along with lab work. Uric acid was negative. White count was slightly up at 14 and she was placed on Keflex. Yesterday, her daughter called the office stating that she was still having pain and difficulty walking with low-grade temperature of 100.8, although the redness was slightly better. She was directed to the Emergency Room. Overnight, she has been treated for cellulitis and symptoms are much improved this morning. PAST MEDICAL HISTORY: Hypertension, chronic obstructive pulmonary disease. PAST SURGICAL HISTORY: Unremarkable. FAMILY HISTORY: Unknown. SOCIAL HISTORY: She lives with her daughter. No chronic alcohol use. There is prior smoking history. ALLERGIES: SULFA. MEDICATIONS: Xopenex, Atrovent inhaler, dicyclomine as needed, hydralazine, amlodipine, paroxetine, Breo, Singulair, Protonix, prednisone. REVIEW OF SYSTEMS: Denies headache, chest pain, shortness of breath, abdominal pain, nausea, vomiting, diarrhea, constipation, dysuria, syncope. OBJECTIVE: VITAL SIGNS: Temperature 36.9, pulse 70, respirations 18, blood pressure 134/64, O2 sat 96% on room air. GENERAL: She is awake, alert, in no distress. LUNGS: Clear with some wheezing. HEART: Regular. [facility] [address] [place] [address] HISTORY AND PHYSICAL Name: ALEJANDRA RICO Room #: 220-P ADM IN M.R.#: [id number] Admission: 05/06/18 Attend Phys: Peewee Gan MD Discharge: Date of : 33 Report #: [id number] ABDOMEN: Soft, normoactive bowel sounds. EXTREMITIES: No edema. The redness and swelling of the left foot has resolved. NEUROLOGIC: Cranial nerves intact. Speech is fluent. LABORATORY AND X-RAY DATA: Reviewed. ASSESSMENT: 1. Cellulitis of the left foot. 2. Febrile syndrome. 3. Chronic obstructive pulmonary disease. 4. Hypertension. PLAN: Empiric antibiotics will continue. She still had low-grade temperature this morning of 38.1. Cultures were obtained through ER as well as in the office earlier in the week. <ELECTRONICALLY SIGNED> By: Peewee Gan MD 05/08/18 [id number] Peewee Gan MD /nt
[2018-05-06 17:18] VITALS: BP 122/53
[2018-05-06 19:02] LABS: URINE BILIRUBIN NEGATIVE (Negative); URINE BLOOD NEGATIVE (Negative); URINE CLARITY CLEAR; URINE COLOR YELLOW; URINE GLUCOSE-RANDOM* NEGATIVE (Negative); URINE KETONES NEGATIVE (Negative); URINE LEUKOCYTES-REFLEX NEGATIVE (Negative); URINE NITRITE-REFLEX NEGATIVE (Negative); URINE PROTEIN (DIPSTICK) TRACE (Negative); URINE SPECIFIC GRAVITY 1.025 (1.005-1.035); URINE UROBILINOGEN 0.2 E.U./dl (0.2-1.0)
[2018-05-06 19:41] LABS: ABSOLUTE NEUTROPHILS 7.6 thou/uL (1.4-8.2); BASOPHILS 0.2 % (0.0-2.0); EOSINOPHILS 5.3 % (0.0-3.0); HEMATOCRIT 32.8 % (37.0-47.0); HEMOGLOBIN 10.8 gm/dL (12.0-15.0); LYMPHOCYTES 15.3 % (24.0-44.0); MCV 87.8 fL (80.0-100.0); MONOCYTES 9.1 % (1.0-8.0); PLATELET COUNT 283 thou/uL (150-400); POLYS 70.1 % (36.0-66.0); RBC 3.74 mil/uL (4.20-5.00); RDW 16.9 % (10.5-14.5); WBC 10.8 thou/uL (4.0-11.0)
[2018-05-06 19:48] LABS: CALCIUM 8.4 mg/dL (8.5-10.1); POTASSIUM 3.8 mmol/L (3.5-5.1)
[2018-05-06 19:49] VITALS: BP 114/63
[2018-05-06 19:54] LABS: ALBUMIN 2.5 g/dL (3.4-5.0); TOTAL BILIRUBIN 0.6 mg/dL (<0.1-1.0); TOTAL PROTEIN 6.1 g/dL (6.4-8.2)
[2018-05-06 20:15] VITALS: BP 114/63
[2018-05-06 21:04] VITALS: BP 137/75
[2018-05-07] VITALS (7 sets, daily range): BP systolic 111–152; BP diastolic 42–77
[2018-05-07 04:00] LABS: ABSOLUTE NEUTROPHILS 6.2 thou/uL (1.4-8.2); BASOPHILS 0.7 % (0.0-2.0); CALCIUM 8.9 mg/dL (8.5-10.1); EOSINOPHILS 6.6 % (0.0-3.0); HEMATOCRIT 33.3 % (37.0-47.0); HEMOGLOBIN 10.9 gm/dL (12.0-15.0); LYMPHOCYTES 18.3 % (24.0-44.0); MCH 29.2 pg (26.0-34.0); MCHC 32.7 g/dL (28.0-37.0); MCV 89.2 fL (80.0-100.0); MONOCYTES 10.5 % (1.0-8.0); PLATELET COUNT 283 thou/uL (150-400); POLYS 63.9 % (36.0-66.0); POTASSIUM 3.7 mmol/L (3.5-5.1); RBC 3.73 mil/uL (4.20-5.00); RDW 16.6 % (10.5-14.5); WBC 9.7 thou/uL (4.0-11.0)
[2018-05-08 03:52] LABS: URINE BILIRUBIN NEGATIVE (Negative); URINE BLOOD NEGATIVE (Negative); URINE CLARITY CLEAR; URINE COLOR YELLOW; URINE GLUCOSE-RANDOM* NEGATIVE (Negative); URINE KETONES TRACE (Negative); URINE LEUKOCYTES-REFLEX NEGATIVE (Negative); URINE NITRITE-REFLEX NEGATIVE (Negative); URINE PROTEIN (DIPSTICK) NEGATIVE (Negative); URINE SPECIFIC GRAVITY 1.015 (1.005-1.035); URINE UROBILINOGEN 0.2 E.U./dl (0.2-1.0)
[2018-05-08 07:20] VITALS: BP 129/56
[2018-05-08 12:25] VITALS: BP 129/56
[2018-05-08 12:29] VITALS: BP 129/56
== END 2018-05-08 13:06 | disposition home or self-care (01) | DRG 603 ==
LOC: ER 16:52 → 2N 19:18 → EROBS 19:18 → 2N 20:15 → SICU 05-07 18:01
PROVIDERS: Internal Medicine Geriatric Medicine; Physician Assistant
DX: L03.116 Cellulitis of left lower limb (principal); E44.0 Moderate protein-calorie malnutrition; I10 Essential (primary) hypertension; J45.909 Unspecified asthma, uncomplicated; J44.9 Chronic obstructive pulmonary disease, unspecified; G89.29 Other chronic pain; M54.2 Cervicalgia; F32.9 Major depressive disorder, single episode, unspecified; K21.9 Gastro-esophageal reflux disease without esophagitis; Z16.30 Resistance to unspecified antimicrobial drugs; Z79.899 Other long term (current) drug therapy; Z90.710 Acquired absence of both cervix and uterus; Z90.49 Acquired absence of other specified parts of digestive tract; Z98.42 Cataract extraction status, left eye; Z98.41 Cataract extraction status, right eye; Z88.2 Allergy status to sulfonamides; Z87.891 Personal history of nicotine dependence
CPT/HCPCS: 10194; 15002

== ENCOUNTER → 2018-08-14 | Outpatient (CLI) | payer OTHER ==
[~2018-08-14] VITALS: Ht 149.9 cm; Wt 57.7 kg
[~2018-08-14] MED LIST changes: +OXYCODONE HCL E15 MG PO; +PREDNISONE 20 M20 MG PO; +VOLTAREN GEL 1100 G2 TOP
--- NOTE | ~2018-08-14 | HPC ---
[facility] [place] [address] PAIN MANAGEMENT CONSULTATION Name: ALEJANDRA RICO Simon [id number] Admission: 08/14/18 Attend Phys: Nadya Gomez Discharge: Date of : 33 Report #: [id number] THIS REPORT FOR: //name// CC: Nadya Anne DATE OF SERVICE: 08/14/2018 CHIEF COMPLAINT: Low back pain, sacroiliac joint dysfunction. HISTORY OF PRESENT ILLNESS: The patient returns today for followup for her refill of her medications. She tells me that her pain is 3/10 today, worse with walking and standing. Her pain is in her lower back, left leg, left buttock, in her neck and shoulder. She tells me that the medications are helpful. We had a lengthy discussion about how she is taking her medications. The patient thinks she takes OxyContin 15 mg 1 tablet a day and occasionally will take a second and her oxycodone 5/325 twice a day, but sometimes substitutes Tylenol for this. The patient tells me with her daughter here present that she has fallen several times. She has not been using a walker on a regular basis, so we encouraged the use of that. The patient tells me she has a new diagnosis of rheumatoid arthritis and is taking prednisone for that currently. Last visit in May when she saw Dr. Alphonso Schwartz, he gave her a sacroiliac joint injection. She tells me that it was very helpful, 75% improvement on her left SI area and is still better and from that injection. ALLERGIES: SULFA. CURRENT LIST OF MEDICATION: Prednisone 20 mg daily, Voltaren gel to lower extremities and hands, oxycodone 5/325 twice a day, Breo at bedtime, amlodipine daily, Singulair daily, Protonix daily, hydralazine daily, Combivent daily, Advair daily, Bentyl as needed and Paxil 30 mg daily. PQRS: 1. She has a history of osteoarthritis in her back and neck. She has rheumatoid arthritis in her right hand, her left foot and her left knee. This is a new diagnosis. 2. Height is 4 feet 11 inches, weight is 127 pounds, BMI is 25.7. 3. Vital signs: Blood pressure 146/98, pulse is 86, respirations 20, oxygen sat is 97%. 4. Her pain score is 3/10. 5. Fall risk. She denies dizziness. Does not need help walking or standing and has not fallen in the last 3 months. 6. The patient is not on any blood thinners. 7. Does have a history of hypertension. 8. She has opioid therapy greater than 6 weeks and an opioid signed contract on [address] [address] PAIN MANAGEMENT CONSULTATION Name: ALEJANDRA RICO Room #: REG [facility] Elaine#: [id number] Admission: 08/14/18 Attend Phys: Nadya Gomez Discharge: Date of : 33 Report #: [id number] the chart. 9. Her moderate risk assessment and the functional assessment is 54/70. The patient denies recreational drug use, does not smoke and does not drink alcohol. We looked at [place] prescription monitoring system. The patient is filling appropriate in her opioid narcotics from Dr. Montana Schwartz at appropriate times. No aberrant behavior. Family members tell me they do keep her medications locked up. We reviewed the fact that opiate medications are being used to provide analgesia adequate to support activities of daily living, not attempting to achieve a specific pain score on the 0-10 Visual Analog Scale. The current opiate medications are providing sufficient analgesia to allow the patient to participate in activities of daily living. The patient is not exhibiting any aberrant behavior suggestive of drug diversion. The patient is not having any adverse reactions to medications. The patient is not suffering from daytime somnolence or mental acuity changes. The patient is managing opiate-induced constipation with appropriate omzy-cds-hafyagm agents and dietary considerations. The patient was counseled on concern for caution with operating a motor vehicle while using opiate medications. A physical exam was performed and the patient's functional status was evaluated. All patients with back pain were advised against the bed rest greater than 4 days and were advised to return to normal activities. Pain score assessment was noted and the treatment plan was reviewed with the patient. All current medications, both prescribed and OTC were reviewed and reconciled on the electronic medical record. Tobacco screening was accomplished and smoking cessation was advised when indicated. BMI was noted and diet/exercise modification was recommended for all patients following outside normal parameters. I reviewed with the patient today their responsibilities to safeguard prescription medications, reviewed their responsibility to utilize medications only as prescribed by the physician. They are to seek and receive pain medications only from 1 physician group ([facility]). They are to use 1 pharmacy and keep the clinic informed if they change pharmacies. Their responsibilities include making followup visits in a timely fashion and to avoid abrupt discontinuation of medication usage. Their responsibilities further include bringing their medications (bottles from the pharmacy with residual pills) to the visit for possible confirmation of pill counts and the patient understands it is their responsibility to submit to random drug screens to ensure both that the medications prescribed are present, and that no other controlled substances are present. All prescriptions provided today were generated electronically. PHYSICAL EXAMINATION GENERAL: This patient is a well-developed white female, appears her stated age. [facility] [address] [place] [address] PAIN MANAGEMENT CONSULTATION Name: ALEJANDRA RICO Room #: REG [facility]#: [id number] Admission: 08/14/18 Attend Phys: Nadya Gomez Discharge: Date of : 33 Report #: [id number] She is alert and orientated x 3. HEENT: Normocephalic, atraumatic. Extraocular eye muscles are intact. Hearing is within normal limits. Mucous membranes are moist. NECK: Without adenopathy. Some discomfort in her neck area today. MUSCULOSKELETAL: She has some scoliosis of her lumbar spine, walks with unstable, antalgic gait. Daughter assists her today. The patient has walker at home, encouraged the use. The patient able to rise from sitting to standing using the armrest of the chair. Mild rheumatoid arthritis noted in her knuckles of her hands, especially her right pinky area. IMPRESSION: 1. Sacral joint dysfunction. 2. Chronic pain in her low back. 3. Hypertension. 4. Asthma. 5. Chronic obstructive pulmonary disease. 6. Chronic neck pain. 7. Irritable bowel syndrome. 8. Depression. 9. Controlled gastric reflux. 10. History of hiatal hernia. 11. Rheumatoid arthritis. PLAN: 1. A very long discussion today regarding the patient's opioid medications. The patient was slightly confused of how she has been taking them. She thought she was taking the little pill, which is OxyContin 15 mg 1 tablet a day and occasionally 2. We discussed in great detail how this would help with the blood level to keep her pain more constant level if she would take it in the morning and at night. The patient tells me she does not sleep well, so wakes up in the middle of the night with significant pain. Thinks maybe this would be helpful. Daughter present and will get a pillbox so that the patient can see to take it in the morning and in the evening and we will continue to monitor her pain control. The patient tells me that she is out of her medications or nearly out and so, it appears that she has been taking it twice a day that she does not take it at bedtime, so we will adjust these times and see if her pain is better controlled over these next few months. 2. The patient will continue her Percocet 5, #60. Script for today and 4 week given for breakthrough pain medicine. The patient will take them only as needed and occasionally does take Tylenol. The patient will continue this regimen. 3. The patient uses Voltaren gel on her hands and her knees. She does not need refills presently at this, but if they find that she does need some, we will gladly call that in. It looks like a 3-month supply with refills was given at her last appointment. 4. Much discussion today regarding a walker and safety with this patient. She [address] [address] PAIN MANAGEMENT CONSULTATION Name: ALEJANDRA RICO Simon Room #: REG [facility]#: [id number] Admission: 08/14/18 Attend Phys: Nadya Gomez Discharge: Date of : 33 Report #: [id number] has fallen several times since her last visit. The patient does have a slightly unsteady gait. I encouraged her to remove all of her rugs if she has some at home. The patient tells me the problem is toys from her grandchildren. Encouraged her to try to get them to pick them up, to use her walker at all times, especially if she thinks she should kick the toys out of the way that can cause her to fall. The patient is agreeable to try and use it on a more regular basis. 5. The patient will be seen in followup by myself in 2 months' time period unless she needs an injection, then she will see Dr. Alphonso Schwartz. The patient is agreeable with this plan of care. 6. The patient seen in collaboration with Dr. Schwartz. <ELECTRONICALLY SIGNED> By: Nadya Gomez 08/17/18 0725 [id number] Nadya Gomez /abilio
[2018-08-14 09:01] VITALS: BP 146/98
== END ==
LOC: PAIN 07:11
DX: M53.3 Sacrococcygeal disorders, not elsewhere classified (principal); M54.5 Low back pain; G89.29 Other chronic pain; J44.9 Chronic obstructive pulmonary disease, unspecified; I10 Essential (primary) hypertension; J45.909 Unspecified asthma, uncomplicated; M54.2 Cervicalgia; F32.9 Major depressive disorder, single episode, unspecified; M06.9 Rheumatoid arthritis, unspecified; K58.0 Irritable bowel syndrome with diarrhea; K21.9 Gastro-esophageal reflux disease without esophagitis; Z87.19 Personal history of other diseases of the digestive system

== ENCOUNTER → 2018-10-12 | Outpatient (CLI) | payer OTHER ==
[~2018-10-12] VITALS: Ht 149.9 cm; Wt 58.5 kg
[2018-10-12 08:27] VITALS: BP 154/81
--- NOTE | 2018-10-12 08:37 | NUR ---
Pain Clinic Assessment: 1. History of Osteoarthritis: back neck History of Rheumatoid Arthritis: RIGHT HAND LEFT FOOT LEFT KNEE 2. Height: 4 ft. 11 in. 149.9 cm. Weight: 129.0 lb. oz. 58.514 kg. Patient's BMI: 26.0 3. Vital Signs: BP: 154/81 Pulse: 70 Resp: 16 Temp: 02 Sat: 97 ECG Mon: 4. Pain Intensity: 9 5. Fall Risk: Dizziness: N Needs help standing or walking: Y Fallen in the last 3 months: N Fall risk comments: 6. Patient on Blood Thinner: None 7. History of Hypertension: Y 8. Opioid Therapy greater than 6 weeks: Y Opiate Contract Signed: 05/06/16 9. Risk Assessment Tool Provided: mod risk 10. Functional Assessment Tool: 11. Recreational Drug Use: Never Drug Type: Tobacco Use: Never Smoker Tobacco Type: Amount or Packs/day: How Many Years: Alcohol Use: No Frequency: Quant:
--- NOTE | 2018-10-13 07:49 | HPC ---
[facility] [place] [address] [address] PAIN MANAGEMENT CONSULTATION Name: ALEJANDRA RICO Simon [id number] Admission: 10/12/18 Attend Phys: Nadya Gomez Discharge: Date of : 33 Report #: [id number] THIS REPORT FOR: //name// CC: Nadya Anne DATE OF SERVICE: 10/12/2018 CHIEF COMPLAINT: Low back pain, sacroiliac joint dysfunction. HISTORY OF PRESENT ILLNESS: The patient returns to the pain clinic today for followup for her medication refill. She is here with family, telling me that she is doing much better, though her pain score is 9/10 today. She states that she feels like she has been doing better. She is taking her pills appropriately. Her family member had set up them to take one in the morning, one at night in a pill box and the patient is taking the breakthrough 1-2 times a day as needed and finds this to be very helpful for her low back pain, left buttock pain, and does complain of some neck pain today, worse with standing and walking. She tells me that she does not have any constipation, actually occasionally had some diarrhea, not have any daytime sleepiness, but does take naps during the day. She tells me that her Voltaren gel also does help some with her pain and we encouraged her to use it on her hands. She would just like a refill of her medications today. CURRENT ALLERGIES: SULFA. CURRENT LIST OF MEDICATIONS: OxyContin 15 mg twice a day, oxycodone 5/325 twice a day, Voltaren gel up to 4 times a day as needed, Breo at bedtime, amlodipine 10 mg daily, Singulair 10 mg daily, prednisone 20 mg twice a day, Protonix 20 mg daily, hydralazine 25 mg twice a day, Combivent inhaler, Advair inhaler, Bentyl as needed and Paxil 30 mg daily. PQRS: 1. History of osteoarthritis in her back and her neck and rheumatoid arthritis in her hands, left foot and left knee. 2. Height is 4 feet 11 inches, weight is 129, BMI 26. 3. Vital signs: Blood pressure 154/81, pulse is 70, respirations 16, oxygen sat is 97%. 4. Pain score is 9/10. 5. Denies dizziness, does need help with walking and standing and has not fallen in the last 3 months. 6. Denies blood thinners, does take antihypertensives. 7. Opioid therapy is greater than 6 weeks, therefore an opioid signed contract is on the chart. 8. Her risk assessment tool is moderate and her functional assessment is 54/70. [address] [address] PAIN MANAGEMENT CONSULTATION Name: ALEJANDRA RICO Simon Room #: REG [facility] Elaine#: [id number] Admission: 10/12/18 Attend Phys: Nadya Gomez Discharge: Date of : 33 Report #: [id number] 9. Recreational drug use, she denies; does not smoke and does not drink alcohol. We did check the prescription monitoring system with [facility]. It did not list her current refills. We did call the [facility] and they verified her last prescription refills that were appropriate by Dr. Schwartz. Her family members tell me that she keeps her medicines locked up. PHYSICAL EXAMINATION: GENERAL: This is a well-developed, well-nourished female who appears her stated age. She is alert and orientated. HEENT: Normocephalic, atraumatic. Extraocular eye muscles are intact. Hearing is within normal limits. Mucous membranes are moist. MUSCULOSKELETAL: She has some scoliosis of her lumbar spine, walks with an antalgic gait. She has a walker at home and encouraged the patient to use it. She rises from sitting to standing using armrest. She has mild rheumatoid arthritis in her hands with her joints slightly swollen today. We reviewed the fact that opiate medications are being used to provide analgesia adequate to support activities of daily living, not attempting to achieve a specific pain score on the 0-10 Visual Analog Scale. The current opiate medications are providing sufficient analgesia to allow the patient to participate in activities of daily living. The patient is not exhibiting any aberrant behavior suggestive of drug diversion. The patient is not having any adverse reactions to medications. The patient is not suffering from daytime somnolence or mental acuity changes. The patient is managing opiate-induced constipation with appropriate jtct-pey-jhagujw agents and dietary considerations. The patient was counseled on concern for caution with operating a motor vehicle while using opiate medications. A physical exam was performed and the patient's functional status was evaluated. All patients with back pain were advised against the bed rest greater than 4 days and were advised to return to normal activities. Pain score assessment was noted and the treatment plan was reviewed with the patient. All current medications, both prescribed and OTC were reviewed and reconciled on the electronic medical record. Tobacco screening was accomplished and smoking cessation was advised when indicated. BMI was noted and diet/exercise modification was recommended for all patients following outside normal parameters. I reviewed with the patient today their responsibilities to safeguard prescription medications, reviewed their responsibility to utilize medications only as prescribed by the physician. They are to seek and receive pain medications only from 1 physician group ( [facility]). They are to use 1 pharmacy and keep the clinic informed if they change pharmacies. Their responsibilities include making followup visits in a timely fashion and to avoid [facility] [address] [place] [address] PAIN MANAGEMENT CONSULTATION Name: ALEJANDRA RICO Room #: REG [facility]#: [id number] Admission: 10/12/18 Attend Phys: Nadya Gomez Discharge: Date of : 33 Report #: [id number] abrupt discontinuation of medication usage. Their responsibilities further include bringing their medications (bottles from the pharmacy with residual pills) to the visit for possible confirmation of pill counts and the patient understands it is their responsibility to submit to random drug screens to ensure both that the medications prescribed are present, and that no other controlled substances are present. All prescriptions provided today were generated electronically. ASSESSMENT: 1. Sacral joint dysfunction. 2. Chronic pain in her lower back. 3. Hypertension. 4. Asthma. 5. Chronic obstructive pulmonary disease. 6. Chronic neck pain. 7. Irritable bowel syndrome. 8. Depression. 9. Controlled gastric reflux. 10. History of hiatal hernia. 11. Rheumatoid arthritis. PLAN: 1. We discussed treatment options today. The patient tells me that she is doing well on her current pain regimen, so refills of her OxyContin 15 mg 1 in the morning and 1 at night, #60 for today and 4-week medication given. 2. Percocet 5/325 #60 for today and 4-week. 3. The patient uses Voltaren gel on her hands and knees. The script was given for that for 3 tubes with 2 additional refills for them to mail off. 4. The patient will return in 2 months' time. Based on the CDC guidelines, she follows for her MMEs in our clinic guidelines also has a 2-month followup visit that she will come at that time and then she will see Dr. Alphonso Schwartz. The patient is seen today in collaboration with Dr. Reji Beverly. <ELECTRONICALLY SIGNED> By: Nadya Gomez 10/13/18 0749 [id number] Nadya Gomez /nt
== END ==
LOC: PAIN 06:59
DX: M54.5 Low back pain (principal); M53.3 Sacrococcygeal disorders, not elsewhere classified; G89.29 Other chronic pain; M54.2 Cervicalgia; M06.9 Rheumatoid arthritis, unspecified; I10 Essential (primary) hypertension; J44.9 Chronic obstructive pulmonary disease, unspecified; K21.9 Gastro-esophageal reflux disease without esophagitis; K44.9 Diaphragmatic hernia without obstruction or gangrene; F32.9 Major depressive disorder, single episode, unspecified; K58.9 Irritable bowel syndrome, unspecified; Z79.899 Other long term (current) drug therapy

== ENCOUNTER → 2018-12-04 | Outpatient (CLI) | payer OTHER ==
[~2018-12-04] VITALS: Ht 149.9 cm; Wt 59.8 kg
--- NOTE | ~2018-12-04 | HPC ---
[facility] [place] [address] PAIN MANAGEMENT CONSULTATION Name: ALEJANDRA RICO Room #: REG [facility]#: [id number] Admission: 12/04/18 ������������������ Attend Phys: Kiara Schwartz MD Discharge: ������������������ Date of : 33 Report #: [id number] THIS REPORT FOR: //name// CC: Pedro Schwartz DATE OF SERVICE: 12/04/2018 PRIMARY CARE PHYSICIAN: Moncho Anne MD CHIEF COMPLAINT: Here for medication renewal. HISTORY: The patient is an 83-year-old female who has been followed in the pain clinic. She has a number of pains. She has a history of low back pain as well as some SI joint dysfunction. Today, she has noted worsening of pain and discomfort in her neck, shoulder and other joints. The single digit weather has been problematic. Notes that her neck is sometimes quite problematic. She feels that her medications are working reasonably well. Does have some occasional constipation. Feels that her medications are working reasonably well and has returned to the pain clinic with a desire of undergoing renewal on her medications. ALLERGIES: No known drug allergies. CURRENT MEDICATIONS: Oxycodone 5/325 one p.o. b.i.d., Voltaren gel topical 3 times daily to the neck, left side, Breo Ellipta 200/25 inhalation at bedtime, Keflex 250 mg in the past because of left foot infection, amlodipine 10 mg, Singulair 10 mg, prednisone 10 mg b.i.d., levalbuterol inhaler q.6h., Atrovent q. 6 hours, Protonix 20 mg, hydralazine 25 mg, Combivent 2 puffs q. 6 hours, Advair 100 mg/50 1 puff b.i.d., Bentyl 20 mg for irritable bowel syndrome, and paroxetine 10 mg. PAIN CLINIC ASSESSMENT/PQRS: 1. History of osteoarthritis. The patient has osteoarthritis involving her back as well as her neck. She is not being treated for rheumatoid arthritis. 2. Height 4 feet 11 inches, weight 131 pounds, BMI is 26.2. 3. Vital signs: Blood pressure 165/92, pulse 84, respiratory rate 16, room air saturation 98%. 4. Pain intensity 05/08. 5. Fall risk. The patient has not fallen in the last 3 months. 6. Blood thinner. The patient is not on a blood thinning medication. 7. Hypertension. The patient has been treated for hypertension. 8. Opioid medications from the pain clinic greater than 6 weeks. 9. Risk assessment tool moderate risk and functional assessment tool 54/70. 10. Recreational drug use. The patient denies use of recreational drugs. 11. Tobacco: The patient [place] [address] PAIN MANAGEMENT CONSULTATION Name: ALEJANDRA RICO [id number] Admission: 12/04/18 ������������������ Attend Phys: Kiara Schwartz MD Discharge: ������������������ Date of : 33 Report #: [id number] 12. Alcohol: The patient denies frequent use of alcoholic beverages. PHYSICAL EXAMINATION: GENERAL: The patient is a well-developed white female. Appears her stated age. She is alert and oriented x 3. Her affect is appropriate. Speech is fluent. HEENT: Normocephalic, atraumatic. Extraocular eye muscles intact. The patient complains of pain in her neck. Pain in her shoulders. Has some generalized complaints of pain in numerous joints. MUSCULOSKELETAL: Without significant kyphosis. The patient with some scoliosis of the lumbar spine. Walks slightly unstable gait. Her daughter is present. She has history of SI joint pain on the left. IMPRESSION: 1. Sacroiliac joint dysfunction. 2. Chronic pain and discomfort in lower back with some difficulty with ambulation. 3. Continue physical therapy. 4. Hypertension. 5. Asthma. 6. Chronic obstructive pulmonary disease. 7. Chronic neck pain. 8. Irritable bowel syndrome. 9. Depression. 10. Controlled gastroesophageal reflux. 11. History of hiatal hernia. RECOMMENDATIONS: We discussed treatment options with the patient. We will continue with her medications. Overall, she feels that things are going reasonably well. Her daughter is present. They had some discussion about using pain medications. We indicate to the patient that on rare occasion if her pain is more problematic, she can take an additional pill. She will continue with her medications. A script for her medications of oxycodone 15 mg b.i.d., Percocet 5 mg b.i.d. have been written. The patient will also continue with the Voltaren gel to the affected area. A script for 4-week refill of her medications has been issued as well. We would like to thank you for letting us participate in her care. We hope she continues to improve. ��������������������������������������������� ���������������������������������������� By: ��������������������������������������������� [id number] Kiara Schwartz MD /ANA
[2018-12-04 08:16] VITALS: BP 165/92
--- NOTE | 2018-12-04 08:30 | NUR ---
\Pain Clinic Assessment: 1. History of Osteoarthritis: back neck History of Rheumatoid Arthritis: RIGHT HAND LEFT FOOT LEFT KNEE 2. Height: 4 ft. 11 in. 149.9 cm. Weight: 131.8 lb. oz. 59.784 kg. Patient's BMI: 26.6 3. Vital Signs: BP: 165/92 Pulse: 84 Resp: 16 Temp: 02 Sat: 98 ECG Mon: 4. Pain Intensity: 8 5. Fall Risk: Dizziness: N Needs help standing or walking: N Fallen in the last 3 months: N Fall risk comments: 6. Patient on Blood Thinner: None 7. History of Hypertension: Y 8. Opioid Therapy greater than 6 weeks: Y Opiate Contract Signed: 05/06/16 9. Risk Assessment Tool Provided: mod risk 10. Functional Assessment Tool: 11. Recreational Drug Use: Never Drug Type: Tobacco Use: Never Smoker Tobacco Type: Amount or Packs/day: How Many Years: Alcohol Use: No Frequency: Quant:
== END ==
LOC: PAIN 10-09 06:57
DX: M54.5 Low back pain (principal); G89.29 Other chronic pain; M19.90 Unspecified osteoarthritis, unspecified site; I10 Essential (primary) hypertension; J44.9 Chronic obstructive pulmonary disease, unspecified; K58.9 Irritable bowel syndrome, unspecified; K21.9 Gastro-esophageal reflux disease without esophagitis; Z79.891 Long term (current) use of opiate analgesic; Z79.899 Other long term (current) drug therapy

== ENCOUNTER → 2019-02-03 | Outpatient (CLI) | payer OTHER ==
[~2019-02-03] VITALS: Ht 149.9 cm; Wt 59.4 kg
[2019-02-03 10:28] VITALS: BP 151/63
--- NOTE | 2019-02-03 10:38 | NUR ---
Pain Clinic Assessment: 1. History of Osteoarthritis: back neck History of Rheumatoid Arthritis: RIGHT HAND LEFT FOOT LEFT KNEE 2. Height: 4 ft. 11 in. 149.9 cm. Weight: 131.0 lb. oz. 59.421 kg. Patient's BMI: 26.4 3. Vital Signs: BP: 151/63 Pulse: 84 Resp: 16 Temp: 02 Sat: 96 ECG Mon: 4. Pain Intensity: 10 5. Fall Risk: Dizziness: N Needs help standing or walking: N Fallen in the last 3 months: Y Fall risk comments: 6. Patient on Blood Thinner: None 7. History of Hypertension: Y 8. Opioid Therapy greater than 6 weeks: Y Opiate Contract Signed: 05/06/16 9. Risk Assessment Tool Provided: mod risk 10. Functional Assessment Tool: / 11. Recreational Drug Use: Never Drug Type: Tobacco Use: Never Smoker Tobacco Type: Amount or Packs/day: How Many Years: Alcohol Use: No Frequency: Quant:
--- NOTE | 2019-02-04 16:15 | HPC ---
[facility] [place] [address] PAIN MANAGEMENT CONSULTATION Name: JACKYALEJANDRA Simon Room #: REG [facility]#: [id number] Admission: 02/03/19 ������������������ Attend Phys: Nadya Gomez Discharge: ������������������ Date of : 33 Report #: [id number] THIS REPORT FOR: //name// CC: Nadya Gomez [facility] DATE OF SERVICE: 02/03/2019 CHIEF COMPLAINT: Chronic low back pain and right arm pain. HISTORY OF PRESENT ILLNESS: This is a very pleasant 83-year-old female who returns to the pain clinic today for refill of her medications. She recently fell on Easter and broke her right wrist. She tells me that she saw Dr. Avril Johnson at [facility] and told her there is no surgery needed, just to wear a cast. She has been having some ongoing pain in that wrist, but also pain in her lower back, neck, shoulders and left leg as well as her bilateral knees. She rates her pain score at 10/10 today, mostly an achy pain, worse with standing and walking. Her medications are helpful. She does feel that her legs are getting weaker. Does not use a walker, and is here with her daughter today. She tells me she has no problems with constipation. She would just like a refill of her medications. ALLERGIES: SULFA. CURRENT LIST OF MEDICATIONS: Oxycodone 5/325 b.i.d., OxyContin 15 mg b.i.d., Voltaren gel up to 4 times a day as needed to her lower extremities, prednisone 20 mg daily, Breo at bedtime, amlodipine 10 mg daily, Singulair 10 mg daily, prednisone 20 mg b.i.d., Protonix daily, hydralazine 25 mg b.i.d., Combivent daily, Advair daily, Bentyl p.r.n., Paxil 10 mg daily and Tylenol Extra Strength 1000 mg b.i.d. PQRS: 1. She has a history of osteoarthritis involving her back and neck and she is being treated for rheumatoid arthritis. 2. Height is 4 feet 11 inches, weight is 131. BMI is 26. 3. Vital signs: Blood pressure 153/63, pulse is 84, respirations 16, oxygen sat is 96%. 4. Pain score is 10/10. 5. Fall risk. Does not complain of dizziness. Does not need help walking. Has fallen in the last 3 months. 6. The patient is not on any blood thinners, but does take medicine for hypertension. 7. Her opioid therapy is greater than 6 weeks; therefore, a signed contract is on the chart. Her risk assessment tool is moderate. Her functional assessment is 54/70. 8. Recreational drug use, she denies. She is not a [place] [address] PAIN MANAGEMENT CONSULTATION Name: ALEJANDRA RICO Room #: REG [facility]#: [id number] Admission: 02/03/19 ������������������ Attend Phys: Nadya Gomez Discharge: ������������������ Date of : 33 Report #: [id number] alcohol. We did check the prescription monitoring system. The patient is filling appropriately for her medicines. There is a recent drug screen on the chart as well. PHYSICAL EXAMINATION: GENERAL: This is a well-developed white female who appears her stated age of 83. She is alert and orientated. Her affect is appropriate. HEENT: Normocephalic, atraumatic. Extraocular eye muscles are intact. The patient does complain of neck pain that does radiate up into the occipital area, worse on the left side than the right. She has some generalized discomfort in her shoulders. MUSCULOSKELETAL: Without significant kyphosis. She does have some scoliosis of the lumbar spine. She walks with an unsteady gait. Lower extremity strength judged to be 4/5 bilaterally in all major muscle groups. IMPRESSION: 1. Sacroiliac joint dysfunction. 2. Chronic pain in her lower back. 3. Hypertension. 4. Asthma. 5. Chronic obstructive pulmonary disease. 6. Neck pain. 7. Irritable bowel syndrome. 8. Depression. 9. Right wrist pain. 10. Osteoarthritis. We reviewed the fact that opiate medications are being used to provide analgesia adequate to support activities of daily living, not attempting to achieve a specific pain score on the 0-10 Visual Analog Scale. The current opiate medications are providing sufficient analgesia to allow the patient to participate in activities of daily living. The patient is not exhibiting any aberrant behavior suggestive of drug diversion. The patient is not having any adverse reactions to medications. The patient is not suffering from daytime somnolence or mental acuity changes. The patient is managing opiate-induced constipation with appropriate jxhg-kiu-nnjglct agents and dietary considerations. The patient was counseled on concern for caution with operating a motor vehicle while using opiate medications. A physical exam was performed and the patient's functional status was evaluated. All patients with back pain were advised against the bed rest greater than 4 days and were advised to return to normal activities. Pain score assessment was noted and the treatment plan was reviewed with the patient. All current medications, both prescribed and OTC were reviewed and reconciled on the electronic medical record. Tobacco screening was accomplished and smoking cessation was advised when indicated. BMI was noted and diet/exercise [address] [place] [address] PAIN MANAGEMENT CONSULTATION Name: ALEJANDRA RICO Room #: REG [facility]#: [id number] Admission: 02/03/19 ������������������ Attend Phys: Nadya Gomez Discharge: ������������������ Date of : 33 Report #: [id number] modification was recommended for all patients following outside normal parameters. I reviewed with the patient today their responsibilities to safeguard prescription medications, reviewed their responsibility to utilize medications only as prescribed by the physician. They are to seek and receive pain medications only from 1 physician group ( [facility]). They are to use 1 pharmacy and keep the clinic informed if they change pharmacies. Their responsibilities include making followup visits in a timely fashion and to avoid abrupt discontinuation of medication usage. Their responsibilities further include bringing their medications (bottles from the pharmacy with residual pills) to the visit for possible confirmation of pill counts and the patient understands it is their responsibility to submit to random drug screens to ensure both that the medications prescribed are present, and that no other controlled substances are present. All prescriptions provided today were generated electronically. PLAN: 1. We discussed treatment options with the patient today. The patient feels that her pain medicines are helpful in controlling her pain, though she does rate it at 10/10 today. She tells me she is having increased right wrist pain and neck pain. She does take oxycodone twice a day and then alternates with Tylenol 500 mg b.i.d. We will refill her OxyContin today 15 mg b.i.d., #60 for today and 4-week release and Percocet 5/325 #60 for today and 4-week release. 2. Voltaren gel is very helpful in controlling some of her arthritic changes. We will refill that and fax it to her long-term care pharmacy. 3. We discussed a walker in great length today, encouraging the patient to use that as well as doing some leg strengthening exercises. 4. The patient will return in [address] Montana Schwartz did see the patient and collaborated care. ��������������������������������������������� <ELECTRONICALLY SIGNED> ���������������������������������������� By: Nadya Gomez ��������������������������������������������� 02/04/19 1615 [id number] Nadya Gomez /nt
== END ==
LOC: PAIN 06:49
DX: M19.90 Unspecified osteoarthritis, unspecified site (principal); J44.9 Chronic obstructive pulmonary disease, unspecified; J45.909 Unspecified asthma, uncomplicated; M54.2 Cervicalgia; M25.531 Pain in right wrist; F32.9 Major depressive disorder, single episode, unspecified; I10 Essential (primary) hypertension; K58.9 Irritable bowel syndrome, unspecified; M53.3 Sacrococcygeal disorders, not elsewhere classified; Z79.899 Other long term (current) drug therapy; Z88.8 Allergy status to other drugs, medicaments and biological substances

== ENCOUNTER → 2019-04-07 | Outpatient (CLI) | payer OTHER ==
[~2019-04-07] VITALS: Ht 144.8 cm; Wt 59.0 kg
[2019-04-07 11:17] VITALS: BP 161/83
--- NOTE | 2019-04-07 11:18 | NUR ---
Pain Clinic Assessment: 1. History of Osteoarthritis: back neck History of Rheumatoid Arthritis: RIGHT HAND LEFT FOOT LEFT KNEE 2. Height: 4 ft. 9 in. 144.8 cm. Weight: 130.0 lb. oz. 58.968 kg. Patient's BMI: 28.1 3. Vital Signs: BP: 161/83 Pulse: 68 Resp: 16 Temp: 02 Sat: 94 ECG Mon: 4. Pain Intensity: 8 5. Fall Risk: Dizziness: N Needs help standing or walking: N Fallen in the last 3 months: N Fall risk comments: 6. Patient on Blood Thinner: None 7. History of Hypertension: Y 8. Opioid Therapy greater than 6 weeks: Y Opiate Contract Signed: 05/06/16 9. Risk Assessment Tool Provided: mod risk 10. Functional Assessment Tool: / 11. Recreational Drug Use: Never Drug Type: Tobacco Use: Never Smoker Tobacco Type: Amount or Packs/day: How Many Years: Alcohol Use: No Frequency: Quant:
--- NOTE | 2019-04-08 10:08 | HPC ---
[facility] [address] [place] [address] PAIN MANAGEMENT CONSULTATION Name: JACKYALEJANDRA Simon [id number] Admission: 04/07/19 ������������������ Attend Phys: Nadya Gomez Discharge: ������������������ Date of : 33 Report #: [id number] THIS REPORT FOR: //name// CC: Nadya Topetehudson Omid DATE OF SERVICE: 04/07/2019 CHIEF COMPLAINT: Chronic low back pain and left neck pain. HISTORY OF PRESENT ILLNESS: This is a very pleasant 84-year-old female who returns to the pain clinic today for her ongoing pain issues. She tells me that she is still recovering from her broken wrist. She does have a brace on it, but she is able to move it some. She tells me that her neck on her left occipital area continues to be quite bothersome as well as her low back and her left leg. She is not using a walker today, though she does have it at home and tells me that she has not fallen since we have seen her last. Her pain score is an 8/10 today, mostly with standing and walking and turning her head. She does tell me eventually that she has not had any pain pills for the last week, so that is why her pain is increased. She tells me that her neck was hurting so bad that she had taken extra pain pills of both her short and long-acting opioids and is out since last week and has been going without any medicines this entire time. She feels like she did not have any withdrawal symptoms, though her daughter is here present and tells us that she has been quite jiang and not herself since she has not had her pain pills. ALLERGIES: SULFA. CURRENT LIST OF MEDICATIONS: Diclofenac gel 4 times a day p.r.n., oxycodone 5/325 b.i.d., OxyContin 15 mg b.i.d., prednisone 20 mg daily, Breo at bedtime, amlodipine 10 mg daily, Singulair 10 mg daily, Protonix 20 mg daily, hydralazine 25 mg b.i.d., Combivent inhaler, Bentyl p.r.n. and paroxetine 30 mg daily. PQRS: 1. She has a history of osteoarthritis involving her back, neck and leg. She is being treated for rheumatoid arthritis as well. 2. Height is 4 feet 9 inches, weight is 130 and BMI is 28. 3. VITAL SIGNS: Blood pressure 161/83, pulse is 68, respirations 16 and oxygen sat is 94. 4. Pain score is 8/10. 5. Fall risk. Denies dizziness. Does not need help with walking or standing. Has not fallen in the last 3 months. 6. The patient is not on any blood thinners, does take medicine for hypertension. 7. Opioid therapy is greater than 6 weeks; therefore, an opioid signed contract is on the chart. Risk assessment is moderate. Functional assessment is 54/70. [address] [address] PAIN MANAGEMENT CONSULTATION Name: JACKYALEJANDRA GONZÁLES Simon Room #: [facility]#: [id number] Admission: 04/07/19 ������������������ Attend Phys: Nadya Gomez Discharge: ������������������ Date of : 33 Report #: [id number] Recreational drug use, she denies. She is not a smoker and does not drink alcohol. According to the prescription monitoring system, the patient is filling appropriately for her medications. She is due for her medications today, though she has been out for 1 week. We were going to check a drug screen on this patient randomly today but since she has been out of her narcotic for a week, we will recheck this at a later date. PHYSICAL EXAMINATION: GENERAL: This is a well-developed, well-nourished white female who appears her stated age of 83. She is alert and oriented. Her affect is appropriate. She is very hard of hearing. HEENT: Normocephalic and atraumatic. Extraocular eye muscles are intact. EXTREMITIES: The patient complains of pain that radiates from the left side of her neck into the occipital area of her head. MUSCULOSKELETAL: Without significant kyphosis. She does have some scoliosis of the lumbar spine. She walks with an unsteady gait. Her lower extremity strength judged to be 4/5 in all major muscle groups. She is wearing a brace on her right wrist. IMPRESSION: 1. Chronic back pain, lumbar back pain. 2. Hypertension. 3. Neck pain radiating to the occipital area. 4. Chronic obstructive pulmonary disease. 5. Depression. 6. Right wrist pain. 7. Osteoarthritis. 8. Complex medical management under terms of written opioid agreement. We reviewed the fact that opiate medications are being used to provide analgesia adequate to support activities of daily living, not attempting to achieve a specific pain score on the 0-10 Visual Analog Scale. The current opiate medications are providing sufficient analgesia to allow the patient to participate in activities of daily living. The patient is not exhibiting any aberrant behavior suggestive of drug diversion. The patient is not having any adverse reactions to medications. The patient is not suffering from daytime somnolence or mental acuity changes. The patient is managing opiate-induced constipation with appropriate clbw-sog-kzzbxhq agents and dietary considerations. The patient was counseled on concern for caution with operating a motor vehicle while using opiate medications. A physical exam was performed and the patient's functional status was evaluated. All patients with back pain were advised against the bed rest greater than 4 days and were advised to return to normal activities. Pain score assessment was [facility] [address] [place] [address] PAIN MANAGEMENT CONSULTATION Name: ALEJANDRA RICO Room #: REG [facility].#: [id number] Admission: 04/07/19 ������������������ Attend Phys: Nadya Gomez Discharge: ������������������ Date of : 33 Report #: [id number] noted and the treatment plan was reviewed with the patient. All current medications, both prescribed and OTC were reviewed and reconciled on the electronic medical record. Tobacco screening was accomplished and smoking cessation was advised when indicated. BMI was noted and diet/exercise modification was recommended for all patients following outside normal parameters. I reviewed with the patient today their responsibilities to safeguard prescription medications, reviewed their responsibility to utilize medications only as prescribed by the physician. They are to seek and receive pain medications only from 1 physician group ( [facility]). They are to use 1 pharmacy and keep the clinic informed if they change pharmacies. Their responsibilities include making followup visits in a timely fashion and to avoid abrupt discontinuation of medication usage. Their responsibilities further include bringing their medications (bottles from the pharmacy with residual pills) to the visit for possible confirmation of pill counts and the patient understands it is their responsibility to submit to random drug screens to ensure both that the medications prescribed are present, and that no other controlled substances are present. All prescriptions provided today were generated electronically. PLAN: 1. We discussed treatment options with the patient today. I explained to the patient that she cannot take more of her medication like she has. I am afraid and caution the patient about overdose, especially taking that many long-acting extra pain pills. The patient verbalizes understanding. Dr. Montana Schwartz did reemphasize the use of overtaking her medications. We explained that she already does have respiratory issues with her COPD and opioid decreased her respiratory status, so the patient needs to take these cautiously as prescribed. 2. We did talk about her left neck pain. The patient encouraged to use her Voltaren gel there as well as heat or ice alternating and occasionally taking 1 extra Percocet a day. We have decided with Dr. Schwartz to increase her Percocet from 5/325, 60 a month to 75 a month. This will enable the patient to take an extra pain pill at least 15 days out of the month and not take any extra long-acting pain medication. The patient verbalizes understanding as well as the daughter. 3. Script was given today for OxyContin 15 mg, #60; Percocet 5/325, #75 for release today and 4-week and Voltaren gel was faxed to her long-term care, [facility]. 4. The patient is seen with Dr. Alphonso Schwartz who collaborated care today, and did see the patient today. The patient's current morphine milliequivalents now is [address] [address] PAIN MANAGEMENT CONSULTATION Name: JACKYALEJANDRA Room #: REG [facility]#: [id number] Admission: 04/07/19 ������������������ Attend Phys: Nadya Gomez Discharge: ������������������ Date of : 33 Report #: [id number] milliequivalents according to the CDC guidelines; therefore, she will call back in 2 months for appointment for her medication refill. ��������������������������������������������� <ELECTRONICALLY SIGNED> ���������������������������������������� By: Nadya Gomez ��������������������������������������������� 04/08/19 1008 [id number] Nadya Gomez /nt
== END ==
LOC: PAIN 07:02
DX: M19.90 Unspecified osteoarthritis, unspecified site (principal); M54.5 Low back pain; M54.2 Cervicalgia; M25.531 Pain in right wrist; G89.29 Other chronic pain; J44.9 Chronic obstructive pulmonary disease, unspecified; I10 Essential (primary) hypertension; F32.9 Major depressive disorder, single episode, unspecified; Z79.891 Long term (current) use of opiate analgesic; Z79.899 Other long term (current) drug therapy

== ENCOUNTER → 2019-06-09 | Outpatient (CLI) | payer OTHER ==
[~2019-06-09] VITALS: Ht 144.8 cm; Wt 61.4 kg
[2019-06-09 08:14] VITALS: BP 135/63
--- NOTE | 2019-06-09 08:21 | NUR ---
Pain Clinic Assessment: 1. History of Osteoarthritis: back neck History of Rheumatoid Arthritis: RIGHT HAND LEFT FOOT LEFT KNEE 2. Height: 4 ft. 9 in. 144.8 cm. Weight: 135.4 lb. oz. 61.417 kg. Patient's BMI: 29.3 3. Vital Signs: BP: 135/63 Pulse: 60 Resp: 18 Temp: 02 Sat: 96 ECG Mon: 4. Pain Intensity: 8 5. Fall Risk: Dizziness: N Needs help standing or walking: Y Fallen in the last 3 months: N Fall risk comments: 6. Patient on Blood Thinner: None 7. History of Hypertension: Y 8. Opioid Therapy greater than 6 weeks: Y Opiate Contract Signed: 05/06/16 9. Risk Assessment Tool Provided: mod risk 10. Functional Assessment Tool: 11. Recreational Drug Use: Never Drug Type: Tobacco Use: Never Smoker Tobacco Type: Amount or Packs/day: How Many Years: Alcohol Use: No Frequency: Quant:
--- NOTE | 2019-06-10 13:13 | HPC ---
[facility] [address] [place] [address] PAIN MANAGEMENT CONSULTATION Name: ALEJANDRA RICO Room #: [facility] [id number] Admission: 06/09/19 ������������������ Attend Phys: Nadya Gomez Discharge: ������������������ Date of : 33 Report #: [id number] THIS REPORT FOR: //name// CC: Nadya Topetehudson Omid DATE OF SERVICE: 06/09/2019 CHIEF COMPLAINT: Chronic low back pain and left neck pain. HISTORY OF PRESENT ILLNESS: This is a very pleasant 84-year-old female who returns to the pain clinic with a family member for medication refills. She does report a pain score of 8/10 today, mostly in her left occipital area of her neck and her left knee, but does have ongoing low back pain that radiates into her left leg as well as left shoulder pain. Her pain is worse when she is standing or getting up from a seated position. Her knees feel especially stiff. The medication and the Voltaren gel, she finds very beneficial. She denies any problems with constipation from her opioids and does not have any daytime sleepiness. The patient reports to me that Dr. Anne wanted to admit her to the hospital yesterday because she was having reflux or cardiac issues that was radiating into her jaw. The patient was not wanting to go in the Emergency Room, but is going to follow up with Dr. Barragan. They will call him today to schedule up a followup appointment. The patient will go to the Emergency Room, though, if she experiences, again, per the family member. ALLERGIES: SULFA. CURRENT LIST OF MEDICATIONS: Oxycodone 5/325 p.r.n., Voltaren gel, OxyContin 15 mg b.i.d., prednisone 20 mg, Breo, amlodipine, Singulair, Protonix, hydralazine, Combivent, Advair, Bentyl and Paxil. PQRS: 1. The patient has osteoarthritis in her neck, back and legs. She is also being treated for rheumatoid arthritis. 2. Height is 4 feet 9 inches, weight is 135, BMI is 29. 3. Vital signs 135/63, pulse is 60, respirations 18, oxygen sat is 96. 4. Pain score is 8/10. 5. Denies dizziness. Does need help walking and standing. Has a walker here present. Has not fallen in the last 3 months. 6. The patient is not on any blood thinners, does take medicine for hypertension. Opioid therapy is greater than 6 weeks; therefore, an opiate signed contract is on the chart. Risk assessment is moderate. Functional assessment is 54/70. 7. Recreational drug use, she denies. She is not a smoker [place] [address] PAIN MANAGEMENT CONSULTATION Name: ALEJANDRA RICO Room #: REG CL Elaine#: [id number] Admission: 06/09/19 ������������������ Attend Phys: Nadya Gomez Discharge: ������������������ Date of : 33 Report #: [id number] alcohol. According to the prescription monitoring system, the patient is due to fill her medications today. She is filling them in a timely fashion. There is a drug screen on the chart as well, and we will recheck that again in the near future. PHYSICAL EXAMINATION: GENERAL: This is a well-developed, well-nourished white female who appears her stated age of 84. She is alert and orientated, and her affect is appropriate. HEENT: Normocephalic, atraumatic. Extraocular eye muscles are intact. EXTREMITIES: The patient has pain in her left neck area that radiates into her occipital area on the left side of her head as well as left shoulder pain that increases with range of motion. MUSCULOSKELETAL: She is without significant kyphosis. She does have scoliosis of her lumbar spine. She walks with an unsteady gait using a walker today. Her lower extremity strength judged to be 4/5 in all major muscle groups. Pain is elicited in her bilateral knees with standing. IMPRESSION: 1. Chronic low back pain, chronic back pain, lumbar region. 2. Hypertension. 3. Neck pain radiating into the occipital area on the left side. 4. Chronic obstructive pulmonary disease. 5. Depression. 6. Osteoarthritis. 7. Complex medical management under terms of written opioid agreement. We reviewed the fact that opiate medications are being used to provide analgesia adequate to support activities of daily living, not attempting to achieve a specific pain score on the 0-10 Visual Analog Scale. The current opiate medications are providing sufficient analgesia to allow the patient to participate in activities of daily living. The patient is not exhibiting any aberrant behavior suggestive of drug diversion. The patient is not having any adverse reactions to medications. The patient is not suffering from daytime somnolence or mental acuity changes. The patient is managing opiate-induced constipation with appropriate vhst-lwd-zzqqtnv agents and dietary considerations. The patient was counseled on concern for caution with operating a motor vehicle while using opiate medications. A physical exam was performed and the patient's functional status was evaluated. All patients with back pain were advised against the bed rest greater than 4 days and were advised to return to normal activities. Pain score assessment was noted and the treatment plan was reviewed with the patient. All current medications, both prescribed and OTC were reviewed and reconciled on the electronic medical record. Tobacco screening was accomplished and smoking cessation was advised when indicated. BMI was noted and diet/exercise [facility] [address] [place] [address] PAIN MANAGEMENT CONSULTATION Name: ALEJANDRA RICO Room #: REG [facility]#: [id number] Admission: 06/09/19 ������������������ Attend Phys: Nadya Gomez Discharge: ������������������ Date of : 33 Report #: [id number] modification was recommended for all patients following outside normal parameters. I reviewed with the patient today their responsibilities to safeguard prescription medications, reviewed their responsibility to utilize medications only as prescribed by the physician. They are to seek and receive pain medications only from 1 physician group ( [facility]). They are to use 1 pharmacy and keep the clinic informed if they change pharmacies. Their responsibilities include making followup visits in a timely fashion and to avoid abrupt discontinuation of medication usage. Their responsibilities further include bringing their medications (bottles from the pharmacy with residual pills) to the visit for possible confirmation of pill counts and the patient understands it is their responsibility to submit to random drug screens to ensure both that the medications prescribed are present, and that no other controlled substances are present. All prescriptions provided today were generated electronically. PLAN: 1. We discussed treatment options with the patient today. The patient is doing quite well with her current pain medication regimen. We will refill her scripts of OxyContin 15 mg, #60, for today and 4-week release as well as her Percocet 5/325, #75, for today and 4-week release. This places the patient at 72 morphine mEq according to the CDC guidelines. 2. Voltaren gel was refilled as well. This has been very beneficial in helping her control her arthritic pain in her multiple joints. 3. The patient is seen today in collaboration with Dr. Alphonso Schwartz. She will follow up in [address] Schwartz at that time. ��������������������������������������������� <ELECTRONICALLY SIGNED> ���������������������������������������� By: Nadya Gomez ��������������������������������������������� 06/10/19 1313 0842 [id number] Nadya Gomez /nt
== END ==
LOC: PAIN 06:44
DX: M54.5 Low back pain (principal); G89.29 Other chronic pain; I10 Essential (primary) hypertension; M54.2 Cervicalgia; J44.9 Chronic obstructive pulmonary disease, unspecified; F32.9 Major depressive disorder, single episode, unspecified; M19.90 Unspecified osteoarthritis, unspecified site; Z79.891 Long term (current) use of opiate analgesic; Z88.2 Allergy status to sulfonamides; Z79.899 Other long term (current) drug therapy

== ENCOUNTER → 2019-08-04 | Outpatient (CLI) | payer OTHER ==
[~2019-08-04] VITALS: Ht 149.9 cm; Wt 61.7 kg
[~2019-08-04] MED LIST changes: +BUTRANS1 EACH INTRADERM
[2019-08-04 09:40] VITALS: BP 183/70
--- NOTE | 2019-08-04 09:51 | NUR ---
Pain Clinic Assessment: 1. History of Osteoarthritis: back neck History of Rheumatoid Arthritis: RIGHT HAND LEFT FOOT LEFT KNEE 2. Height: 4 ft. 11 in. 149.9 cm. Weight: 136.0 lb. oz. 61.689 kg. Patient's BMI: 27.5 3. Vital Signs: BP: 183/70 Pulse: 89 Resp: 16 Temp: 02 Sat: 98 ECG Mon: 4. Pain Intensity: 8-TODAY 5. Fall Risk: Dizziness: N Needs help standing or walking: Y Fallen in the last 3 months: Y Fall risk comments: USES WALKER-DIDNT BRING TODAY, FALLEN 2-3 TIMES SINCE LAST VISIT- LEGS ARE WEAK GAVE OUT, AND UNSTEADY ON FEET 6. Patient on Blood Thinner: None 7. History of Hypertension: Y 8. Opioid Therapy greater than 6 weeks: Y Opiate Contract Signed: 05/06/16 9. Risk Assessment Tool Provided: mod risk 10. Functional Assessment Tool: 58/70 11. Recreational Drug Use: Never Drug Type: Tobacco Use: Never Smoker Tobacco Type: Amount or Packs/day: How Many Years: Alcohol Use: No Frequency: Quant:
--- NOTE | 2019-08-05 15:32 | HPC ---
[facility] [address] [place] [address] PAIN MANAGEMENT CONSULTATION Name: ALEJANDRA RICO Room #: REG [facility]#: [id number] Admission: 08/04/19 Attend Phys: Nadya Gomez Discharge: Date of : 33 Report #: [id number] THIS REPORT FOR: //name// CC: Nadya Schwartz MD DATE OF SERVICE: 08/04/2019 CHIEF COMPLAINT: Chronic low back pain and left neck pain. HISTORY OF PRESENT ILLNESS: This is a very pleasant 84-year-old female who returns to the pain clinic today with her family member for her medication refills. They report a pain score of 8/10 today for her ongoing neck and low back pain. They report to me that she has been out of her OxyContin, though she has plenty of her oxycodone left. They are unsure of how this happened. The daughter has been filling her prescription boxes each week. The medication is not even kept at the patient's house. She has been out for several days. She has not gone through withdrawal because she has been taking 2 oxycodone at a time twice a day to get by to this appointment and she still has those breakthrough pain medicines left because she does take those very sparingly. The patient denies any problems with daytime sleepiness or constipation. She tells me it hurts when she turns her head to the left on her neck as well as talking on the phone. It is a sharp, radiating pain in her neck and left shoulder. Her lower back is worse with walking. She does continue to use her Voltaren gel that she finds beneficial as well as her pain medications. ALLERGIES: SULFA. CURRENT LIST OF MEDICINES: Oxycodone 5/325 p.r.n., OxyContin 15 mg b.i.d., Voltaren gel as needed, prednisone 20 mg daily, Breo daily, amlodipine 10 mg daily, Singulair 10 mg daily, Protonix 20 mg daily, hydralazine 25 mg b.i.d., Bentyl 20 mg p.r.n. and paroxetine 10 mg daily. PQRS: 1. She has osteoarthritis in her neck and back as well as rheumatoid arthritis in her hands and feet. 2. Height is 4 feet 11 inches, weight is 136, BMI is 27. 3. Vital signs 183/70, pulse is 89, respirations 16, oxygen sat is 98. 4. Pain score is 8/10. 5. Denies dizziness. Does need help walking. She has fallen in the last 3 months and refuses to use a walker. 6. The patient is not on any blood thinners, but does take medicine for hypertension. 7. Opioid therapy is greater than 6 weeks; therefore, an opioid signed contract [address] [address] PAIN MANAGEMENT CONSULTATION Name: ALEJANDRA RICO Room #: REG [facility]#: [id number] Admission: 08/04/19 Attend Phys: Nadya Gomez Discharge: Date of : 33 Report #: [id number] is on the chart. Her risk assessment is moderate. Functional assessment is 58/70. 8. Recreational drug use, she denies. She is not a smoker and does not drink alcohol. We did check the prescription monitoring system, the patient is filling appropriately for her medications, though she is out of her OxyContin early today. The family member tells me she has been safeguarding her medications, keeping them with her, only giving her a week's supply at a time but the patient is still out of her OxyContin. We will check a random drug screen on this patient today as we do periodically on all of our patients. PHYSICAL EXAMINATION: GENERAL: This is a well-developed, well-nourished white female who appears her stated age of 84. She is alert and orientated. She is a good historian. Her affect is appropriate. HEENT: Normocephalic, atraumatic. Extraocular eye muscles are intact. NECK: She complains of left neck tenderness, worse with flexion and extension and rotation and does radiate into her left shoulder as well. MUSCULOSKELETAL: Complains of tenderness across her lumbar spine. She does have scoliosis and has unsteady gait, though does not have a walker with her today. Her lower extremity strength judged to be 4/5 in all major muscle groups. IMPRESSION: 1. Chronic low back pain. 2. Hypertension. 3. Neck pain radiating into the occipital area at the left side. 4. Chronic obstructive pulmonary disease. 5. Depression. 6. Osteoarthritis. 7. Complex medical management under terms of written opioid agreement. PLAN: 1. We discussed treatment options with the patient and family today. I believe, it is time for an opioid rotation of her medications. I think a patch will be beneficial for this patient since she seems to not be able to keep her medications for full 30 days. We are unsure if the patient is taking more than she should, she can be forgetful at times. or if possibly a family member has gotten into them, we are unsure. I explained to them that a patch she would only change every week; therefore, she would not have to think about taking pills or remembering to take them on a timely fashion. The patient thinks this will be a good option. We also discussed that we are unsure if the OxyContin will be going off the market from recent losses that have been occurring with 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 2. The patient has been stable on her same dose of OxyContin for quite some time, so Butrans we will do 5 mcg patch which was equal equivalent dose of her OxyContin 30. We will try this for one month. Scripts given and the patient will return in followup to see if they are beneficial. She is taking this medication for her chronic neck and back pain, not for opioid dependency or addiction. 3. We will continue her on her Percocet 5/325 using those as breakthrough pain medicine throughout the day as needed. The patient does take these very sparingly, 75 pills are given for this one month. 4. The patient denies any problems with constipation or daytime sleepiness from her medications, though she does continue to fall. I encouraged her to use her walker at all times, which we have had this repeated conversation for the patient's safety. 5. The patient is seen in collaboration today with Dr. Alphonso Schwartz who is agreeable with the above plan of care. <ELECTRONICALLY SIGNED> By: Nadya Gomez 08/05/19 1532 1151 2046 Nadya Gomez /nt
== END ==
LOC: PAIN 06:54
DX: I10 Essential (primary) hypertension (principal); M54.5 Low back pain; F32.9 Major depressive disorder, single episode, unspecified; M19.90 Unspecified osteoarthritis, unspecified site; Z79.891 Long term (current) use of opiate analgesic; Z79.899 Other long term (current) drug therapy; Z88.2 Allergy status to sulfonamides

== ENCOUNTER → 2019-09-01 | Outpatient (CLI) | payer OTHER ==
[~2019-09-01] VITALS: Ht 149.9 cm; Wt 59.7 kg
[~2019-09-01] MED LIST changes: +CARAFATE 1 GM TA1 GM PO
[2019-09-01 09:22] VITALS: BP 154/74
--- NOTE | 2019-09-01 09:32 | NUR ---
Pain Clinic Assessment: 1. History of Osteoarthritis: back neck History of Rheumatoid Arthritis: RIGHT HAND LEFT FOOT LEFT KNEE 2. Height: 4 ft. 11 in. 149.9 cm. Weight: 131.6 lb. oz. 59.693 kg. Patient's BMI: 26.6 3. Vital Signs: BP: 154/74 Pulse: 71 Resp: 14 Temp: 02 Sat: 97 ECG Mon: 4. Pain Intensity: 8 5. Fall Risk: Dizziness: N Needs help standing or walking: Y Fallen in the last 3 months: N Fall risk comments: USES WALKER-DIDNT BRING TODAY, FALLEN 2-3 TIMES SINCE LAST VISIT- LEGS ARE WEAK GAVE OUT, AND UNSTEADY ON FEET 6. Patient on Blood Thinner: None 7. History of Hypertension: Y 8. Opioid Therapy greater than 6 weeks: Y Opiate Contract Signed: 05/06/16 9. Risk Assessment Tool Provided: mod risk 10. Functional Assessment Tool: 58/70 11. Recreational Drug Use: Never Drug Type: Tobacco Use: Never Smoker Tobacco Type: Amount or Packs/day: How Many Years: Alcohol Use: No Frequency: Quant:
--- NOTE | 2019-09-02 08:47 | HPC ---
[facility] [place] [address] [place] [address] PAIN MANAGEMENT CONSULTATION Name: ALEJANDRA RICO Simon [facility] #: [id number] Admission: 09/01/19 Attend Phys: Nadya Gomez Discharge: Date of : 33 Report #: [id number] THIS REPORT FOR: //name// CC: Nadya Schwartz MD DATE OF SERVICE: 09/01/2019 CHIEF COMPLAINT: Cervical pain and low back pain. HISTORY OF PRESENT ILLNESS: This is an 84-year-old pleasant female who returns to the pain clinic today for discussion of her Butrans patch and a refill of her oxycodone. We attempted to rotate her medications at her last visit from OxyContin to Butrans patch. This needed prior authorization from the insurance company and then we had to do an appeal. We have found out today that it was just approved from the appeal status, so the patient has not started this medication yet. She has continued her oxycodone 5/325 only for the past month. She is rating her pain score of 8/10 due to the fact that she has been out the last couple of days of her medication. She is not experiencing any withdrawal from being out, she reports. Her pain is located today mostly in her left neck and head. She does have occasional low back pain. She is here with her family member who does assist with her medications. The patient reports that medications are usually beneficial when she has them as well as her Voltaren gel and using ice to her neck. She is hopeful that by starting the Butrans patch, this will help some of her neck pain. ALLERGIES: SULFA. CURRENT LIST OF MEDICATIONS: Carafate, oxycodone 5/325, Voltaren gel, prednisone, Breo, amlodipine, Singulair, Protonix, hydralazine, Combivent, Advair, Bentyl and Paxil. PQRS: 1. She has osteoarthritis in her neck and back and rheumatoid arthritis in her hands and feet. 2. Height is 4 feet 11 inches, weight is 131, BMI is 26. 3. Vital signs 154/74, pulse is 71, respirations 14, oxygen sat is 97. 4. Pain score is 8/10. 5. Denies dizziness. Does need help walking. She did bring her walker today, though unsure that she is using it at home frequently. She has not fallen. 6. The patient is not on any blood thinners, but does take medicine for hypertension. 7. Opiate therapy is greater than 6 weeks; therefore, an opiate signed contract is on the chart. Risk assessment is moderate. Functional assessment is 58/70. [address] [address] PAIN MANAGEMENT CONSULTATION Name: JACKYALEJANDRA Room #: REG CL Elaine#: [id number] Admission: 09/01/19 Attend Phys: Nadya Gomez Discharge: Date of : 33 Report #: [id number] 8. Recreational drug use, she denies. She is not a smoker and does not drink alcohol. According to the prescription monitoring system, the patient is due to fill her oxycodone today. She has not started her Butrans patch due to the prior authorization status, but she will start this tomorrow. We did check a random drug screen on her last visit that was appropriate for all of her medications. PHYSICAL EXAMINATION: GENERAL: This is alert and orientated 84-year-old female who appears her stated age, placing her pain score today at 8/10. HEENT: Normocephalic, atraumatic. Extraocular eye muscles are intact. NECK: Has tenderness on the left portion of her neck that radiates into occipital area, worse with rotation and flexion and extension. MUSCULOSKELETAL: She has tenderness across the lumbosacral region. She has scoliosis and an unsteady gait, has a walker present, using that today. Her lower extremity strength judged to be 4/5 in all major muscle groups with symmetrical muscle bulk and tone. IMPRESSION: 1. Chronic low back pain. 2. Hypertension. 3. Neck pain radiating into the occipital area. 4. Chronic obstructive pulmonary disease. 5. Depression. 6. Osteoarthritis. 7. Scoliosis. 8. Complex medical management under terms of written opioid agreement. We reviewed the fact that opiate medications are being used to provide analgesia adequate to support activities of daily living, not attempting to achieve a specific pain score on the 0-10 Visual Analog Scale. The current opiate medications are providing sufficient analgesia to allow the patient to participate in activities of daily living. The patient is not exhibiting any aberrant behavior suggestive of drug diversion. The patient is not having any adverse reactions to medications. The patient is not suffering from daytime somnolence or mental acuity changes. The patient is managing opiate-induced constipation with appropriate bglm-dpy-bdkpgch agents and dietary considerations. The patient was counseled on concern for caution with operating a motor vehicle while using opiate medications. PLAN: 1. We discussed treatment options with the patient today. Since we were unable to obtain the authorization for her Butrans patch until today, the patient will start that tomorrow, placing 1 patch on every week. She is instructed to call us after 2 weeks and report how she is doing. Hopefully, this medicine will be [address] [address] PAIN MANAGEMENT CONSULTATION Name: ALEJANDRA RICO Simon Room #: [facility]#: [id number] Admission: 09/01/19 Attend Phys: Nadya Gomez Discharge: Date of : 33 Report #: [id number] beneficial at this dose of 5 mcg. If not, we may need to increase this, but they will call and report how she is doing. 2. Scripts given today for Butrans patch 5 mcg to release in 4 weeks as well as oxycodone 5/325, #75, taking 2-3 tablets a day to release today and again in 4 weeks. 3. The patient will return for appointment in October, but call to keep us apprised of how she is doing. 4. The patient is seen in collaboration today with Dr. Alphonso Schwartz who did see the patient as well. <ELECTRONICALLY SIGNED> By: Nadya Gomez 09/02/19 0847 1023 1141 Nadya Gomez /abilio
== END ==
LOC: PAIN 06:56
DX: M54.5 Low back pain (principal); I10 Essential (primary) hypertension; M54.2 Cervicalgia; J44.9 Chronic obstructive pulmonary disease, unspecified; F32.9 Major depressive disorder, single episode, unspecified; M19.90 Unspecified osteoarthritis, unspecified site; M41.80 Other forms of scoliosis, site unspecified; Z79.891 Long term (current) use of opiate analgesic

== ENCOUNTER 2019-10-05 14:58 | Inpatient (IN) | payer OTHER ==
[~2019-10-05] VITALS: Ht 144.8 cm; Wt 55.8 kg
--- NOTE | ~2019-10-05 | D ---
[facility] [place] [address] DISCHARGE SUMMARY Name: ALEJANDRA RICO Simon Room #: 411-P ADM IN M.R.#: [id number] Admission: 10/05/19 Attend Phys: Stephanie Guzman Discharge: Date of : 33 Report #: [id number] THIS REPORT FOR: //name// CC: Pedro Anne FINAL DIAGNOSIS: Chronic obstructive pulmonary disease exacerbation. HOSPITAL COURSE: The patient was admitted from home with shortness of breath and coughing. She required supplemental oxygen initially and placed on IV antibiotics and IV steroids. Chest x-ray was clear. Respiratory culture of the nares was negative along with fluid being negative. She had a slow recovery. Gradually, she was weaned off oxygen and was converted to oral steroids. She continued to have some upper airway wheezing and congested cough, but she was walking in her room independently and was otherwise stable. PHYSICAL EXAMINATION: On the day of discharge: GENERAL: She was awake and alert. VITAL SIGNS: Stable. CHEST: Generally was clear, but she did have some tight upper airway expiratory wheeze, sounded more tracheal. HEART: Regular. ABDOMEN: Soft, normoactive bowel sounds. EXTREMITIES: Showed no edema. DISPOSITION: She will be discharged to home with home health. Diet and activity as tolerated, resume all home medications plus Omnicef and prednisone slow taper. By: 1103 1114 Peewee Gan MD /abilio
[2019-10-05 16:17] VITALS: BP 148/59
[2019-10-05 18:47] LABS: HEMOGLOBIN 12.6 gm/dL (12.0-15.0); MCH 28.7 pg (26.0-34.0); MCHC 32.2 g/dL (28.0-37.0); MCV 89.3 fL (80.0-100.0); RBC 4.37 mil/uL (4.20-5.00); RDW 14.8 % (10.5-14.5); WBC 15.8 thou/uL (4.0-11.0)
[2019-10-05 19:02] LABS: ALBUMIN 2.9 g/dL (3.4-5.0); CALCIUM 8.6 mg/dL (8.5-10.1); CREATININE 1.1 mg/dL (0.6-1.0); POTASSIUM 3.8 mmol/L (3.5-5.1); TOTAL BILIRUBIN 0.6 mg/dL (<0.1-1.0); TOTAL PROTEIN 6.4 g/dL (6.4-8.2)
[2019-10-05 19:20] VITALS: BP 134/46
--- NOTE | 2019-10-05 19:45 | NUR ---
PT ARRIVED TO UNIT A DIRECT ADMIT FROM DR Geneva POWERS OFFICE. PT IS ALERT AND ORIENTED X4. ABLE TO MAINTAIN 02 SAT >90 ON RA. PT IS LABORED IN BREATHING AND EVEN MORESO WHEN CARRYING ON CONVERSATION OR ACTIVITY BUT IS ABLE TO RECOVER WELL. PT STATES SHE HAS BEEN FEELING BAD FOR ABOUT A WEEK WITH INCREASED SOA BEFORE GOING TO DR, BUT THIS MORNING WAS THE WORSE. DTR ARRIVED WITH PATIENT. IV STARTED IN LEFT AC. ASSESSMENT COMPLETE. PAGED DR POWERS, RECIEVED CALL BACK FROM DR PORTER WITH SEVERAL ORDERS THAT I ENTERED FOR PT. UPDATED PT AND DTR ON POC. DTR WILL BE BRINGING A PAIN PATCH FOR PATIENT THAT THE HOSPITAL DOES NOT CARRY THAT WE WILL NEED TO CHECK IN TO PHARMACY. PT DENIES PAIN OR ANY FURTHER CONCERS AT THIS TIME. NAD NOTED.
[2019-10-05 20:23] VITALS: BP 150/64
--- NOTE | 2019-10-06 02:04 | NUR ---
PT IS A/O X4.PT CARE ASSUMED WITH PT IN BED .PT IS UP WITH STANDBY ASSIST.PT WAS TAKEN TO RESTROOM BY NURSE AND STARTED C/O OF SOA.PT O2 SAT WAS 88%.PT WAS PLACED ON 1L OF O2 NC WITH O2 SAT GOING UP TO 95%.PT IS ON BREATHING TREATMENT.CHEST X RAY WAS DONE YESTERDAY..PT IS CONTINENT TO B/B. WILL CONTINUE TO MONITOR PER POC
[2019-10-06 04:10] VITALS: BP 170/72
[2019-10-06 08:38] VITALS: BP 164/67
--- NOTE | 2019-10-06 14:55 | NUR ---
PT ADMITTED RELATED TO COPD. CM REVIEWED CHART AND SPOKE [facility] CARE TEAM. CM MET WITH PT AT BEDSIDE THIS DAY. PT IS A&O X4. CM ROLE INTRODUCED. PT INDICATED SHE LIVES IN A HOUSE WITH HER GRANDDAUGHTER AND TWO GREAT GRANDDAGHTERS. PT INDICATED NO STEPS TO ENTER AND NO STEPS INSIDE. PT INDICATED SHE HAS A 4WW FOR HOME USE WELL A NEBULIZER. 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 PT INDICATED NO HH HX BUT THAT SHE HAD DONE OP HERE IN THE PAST. PT INDICATED SHE HOPES TO RETURN HOME ONCE MEDICALLY STABLE. CM TO FOLLOW INDICATED WITH DC PLANNING.
--- NOTE | 2019-10-06 15:14 | H ---
[facility] [place] [address] HISTORY AND PHYSICAL Name: ALEJANDRA RICO Room #: 464-P ADM IN M.R.#: [id number] Admission: 10/05/19 Attend Phys: Stephanie Guzman Discharge: Date of : 33 Report #: [id number] THIS REPORT FOR: //name// CC: Pedro Anne CHIEF COMPLAINT: Shortness of breath and cough. HISTORY OF PRESENT ILLNESS: The patient is an 84-year-old female who was admitted from the office with shortness of breath and coughing. Symptom has been going on for a number of days. She has had no fever or chills. Her cough is mainly nonproductive, but she does develop wheezing and bronchospasm. On occasion, she has some thick sputum. Chest x-rays has not revealed an infiltrate. PAST MEDICAL HISTORY: COPD, hypertension, chronic pain syndrome, osteoarthritis. PAST SURGICAL HISTORY: Noncontributory. FAMILY HISTORY: Noncontributory. SOCIAL HISTORY: She lives at home. Prior tobacco use, none currently. No chronic alcohol use. ALLERGIES: Unknown. MEDICATIONS: Dicyclomine, hydralazine, amlodipine, losartan, Percocet, Butrans patch, Paxil, Breo, Advair, Singulair, Carafate, Protonix, Combivent. REVIEW OF SYSTEMS: Denies headache, chest pain, abdominal pain, nausea, vomiting, diarrhea, constipation, dysuria, syncope. OBJECTIVE: VITAL SIGNS: Temperature 36.8, pulse 67, respirations 15, blood pressure 164/67, O2 sat 94% on 1-2 liters. GENERAL: She is awake and alert, in no distress. Somewhat hard of hearing. HEAD AND NECK: Unremarkable. LUNGS: She has expiratory wheezing and a coarse cough. HEART: Regular, no murmur. ABDOMEN: Soft, normoactive bowel sounds. EXTREMITIES: No edema. NEUROLOGIC: Motor strength 4/5 throughout. LABORATORY REVIEW: White count was 15.8. Chemistry unremarkable. Albumin 2.9. Chest x-ray showed no infiltrate. ASSESSMENT: [facility] [address] [place] [address] HISTORY AND PHYSICAL Name: JACKYALEJANDRA Room #: 464-P [facility] IN [facility]#: [id number] Admission: 10/05/19 Attend Phys: Stephanie Guzman Discharge: Date of : 33 Report #: [id number] 1. Chronic obstructive pulmonary disease exacerbation. 2. Hypertension. 3. Chronic pain syndrome. 4. Narcotic dependence. 5. Moderate protein-calorie malnutrition, albumin 2.9. PLAN: She will be treated symptomatically with empiric antibiotics, steroids, nebulized treatments and home medications. Respiratory and influenza viral panels are ordered. <ELECTRONICALLY SIGNED> By: Peewee Gan MD 10/06/19 1514 [id number] Peewee Gan MD /abilio
[2019-10-06 15:22] VITALS: BP 129/52
--- NOTE | 2019-10-06 20:17 | NUR ---
PT A&OX4, VSS, DENIES PAIN. PATIENT HAS CONGESTED COUGH, WHEEZES HEARD IN UPPER AND LOWER LOBES, BREATHING REGULAR. PATIENT ON 1L O2. H1N1 AND FLU SAMPLES TAKEN TO LAB. FAMILY AT BEDSIDE. PATIENT STANDBY ASSIST TO BATHROOM. NO SIGNS OF DISTRESS. WILL CONTINUE TO MONITOR.
[2019-10-06 20:56] VITALS: BP 129/72
[2019-10-07 05:20] LABS: HEMATOCRIT 37.6 % (37.0-47.0); MCH 28.3 pg (26.0-34.0); MCHC 31.9 g/dL (28.0-37.0); MCV 88.7 fL (80.0-100.0); RBC 4.24 mil/uL (4.20-5.00); RDW 14.4 % (10.5-14.5); WBC 11.5 thou/uL (4.0-11.0)
[2019-10-07 05:36] LABS: CALCIUM 8.9 mg/dL (8.5-10.1); CREATININE 0.9 mg/dL (0.6-1.0); POTASSIUM 3.7 mmol/L (3.5-5.1)
--- NOTE | 2019-10-07 06:18 | NUR ---
PROGRESS PT A/O X4, LUNGS SOUNDS DIMINISHED IN ALL ESCOBAR PT HAS A PRODUCTIVE COUGH BRINGING UP THICK WHITE COLORED SPUTUM PER PT REPORT. STATES SHE IS BREATHING BETTER AND HOPES TO GET DISCHARGED TODAY OR TOMORROW. IV SOLUMEDROL AND RT TREATMENTS CONTINUE, IV ANTIBIOTICS ADMINISTERED ORDERED. PT VOIDING QS AND HAS ADEQUATE PO INTAKE. ON 3 LITERS OF O2 VIA NC. CONTINUE POC.
[2019-10-07 07:35] VITALS: BP 125/63
--- NOTE | 2019-10-07 13:48 | NUR ---
ASSUMED CARES AT 0700. PT AWAKE, ALERT AND ORIENTED *4. DENIES PAIN. VITALS REMAIN STABLE. LS CONGESTED AND WHEEZY, ON RA WITH SATS >92%, BARREL CHEST. SOA NOTED WITH EXERCION. LEFT AC IV REMAINS INTACT AND PATENT. PT UP WITH 1 CONTACT GUARD, AMBULATED WITH PT AND TOLERATED WELL. Q1H VISUAL CHECKS. CALL LIGHT WITHIN REACH. FALL PRECAUTIONS IN PLACE
[2019-10-07 13:53] VITALS: BP 112/59
--- NOTE | 2019-10-07 14:09 | NUR ---
CARE TEAM INDICATED THAT PT IS SLOWLY PROGRESSING TOWARD GOAL OF DISCHARGE. PT AND OT ASSESSED AND INDICATED THAT PT WOULD LIKELY BE SAFE TO RETURN HOME WITH HH SERVICES ONCE MEDICALLY STABLE. PT IS ANTICIPATED TO TRASNFER TO 4N SS THIS DAY. CM TO FOLLOW INDICATED WITH DC PLANNING.
--- NOTE | 2019-10-07 15:35 | NUR ---
PT TRANSFERRED FROM 4W. AOX4, VSS, NO C/O PAIN. PT ON RA SATS 93%, NON PRODUCTIVE DRY COUGH. FALL PRECAUTIONS IN PLACE, CALL LIGHT/PERSONAL ITEMS IN REACH. WILL CONTINUE TO MONTIOR PT.
[2019-10-07 16:39] VITALS: BP 126/60
[2019-10-07 20:40] VITALS: BP 134/59
--- NOTE | 2019-10-08 04:05 | NUR ---
PATIENT ALERT AND ORIENTED X4. [place]. DENIES PAIN. BREATH SOUNDS CAORSE WITH WHEEZES. HAS RT TXMENTS. SLEPT MOST OF THE NIGHT.
[2019-10-08 09:12] VITALS: BP 129/68
--- NOTE | 2019-10-08 10:28 | NUR ---
SW reviewed chart and spoke with nursing. Pt was [facility]. Recommendation made for pt to have HH services at time of discharge. SW met with pt at bedside. Pt sleeping soundly at time of SW visit. SW spoke with pt's dtr, Mary, via phone to discuss discharge plan. Pt has used HH in the past, but pt's dtr is unsure of provider. No preference voiced. Pt's PCP is Dr. Moncho Anne. search planner to fax referral to [facility]. SW notified HH liaison. SW is following to assist as needed with discharge planning.
--- NOTE | 2019-10-08 10:42 | NUR ---
DISCHARGE PLANNING. ANTICIPATED DISCHARGE TODAY, TO HOME WITH HOME HEALTH. PATIENT REFERRAL FAXED TO [facility] FOR HOME HEALTH COVERAGE PER REQUEST. [facility] NOTIFIED PER UNIT SW. FOLLOWING.
[2019-10-08 12:40] VITALS: BP 129/68
--- NOTE | 2019-10-08 14:42 | NUR ---
PT IS AOX4, VSS, COURSE LUNG SOUNDS PRESENT. PT DENIES PAIN AT THIS TIME. UP AD SHAKA WITH SB ASSIST. CALL LIGHT/PERSONAL ITEMS IN PLACE. WILL CONTINUE TO MONITOR.
[2019-10-08 20:05] VITALS: BP 141/55
--- NOTE | 2019-10-09 05:01 | NUR ---
PATIENT ALERT AND ORIENTED X4. UP TO BATHROOM WITH SBA - STEADY ON HER FEET. DENIES PAIN. BS MONITORED PER ORDER. VERY [place]. PLEASANT AND COOPERATIVE. NO SOA NOTED WITH EXERTION. RESTING QUIETLY. WILL MONITOR.
[2019-10-09 05:36] LABS: HEMATOCRIT 36.5 % (37.0-47.0); HEMOGLOBIN 11.9 gm/dL (12.0-15.0); MCHC 32.6 g/dL (28.0-37.0); MCV 88.9 fL (80.0-100.0); RBC 4.11 mil/uL (4.20-5.00); RDW 14.8 % (10.5-14.5); WBC 8.2 thou/uL (4.0-11.0)
[2019-10-09 05:55] LABS: CALCIUM 9.4 mg/dL (8.5-10.1); CREATININE 1.2 mg/dL (0.6-1.0); POTASSIUM 3.6 mmol/L (3.5-5.1)
[2019-10-09 07:21] VITALS: BP 153/85
[2019-10-09 16:44] VITALS: BP 127/49
--- NOTE | 2019-10-09 19:25 | NUR ---
ASSUMED CARE OF THE PATIENT AT 0715, PATIENT DENIES PAIN THIS SHIFT. PATIENT UP WITH SBA TO BR. BLOOD SUGAR MONITORING ORDERED DUE TO STEROIDS, NO INSULIN COVERAGE. PATIENT HAS RIGHT FOREARM IV IN PLACE, RECEIVED IV STEROIDS THIS SHIFT. COUGH NOTED WITH WHEEZES AND COARSE LUNGS, SHE RECEIVES BREATHING TREATMENTS SCHEDULED. DR POWERS HERE THIS AM, PATIENT WILL DISCHARGE TO HOME TOMORROW. INCONTINENT WHEN COUGHING, BRIEFS IN PLACE. WILL CONTINUE TO MONITOR.
[2019-10-09 19:43] VITALS: BP 139/54
[2019-10-09 22:06] LABS: ADENOVIRUS Negative (Negative); INFLUENZA A Negative (Negative); INFLUENZA B Negative (Negative); METAPNEUMOVIRUS Negative (Negative); PARAINFLUENZA 1 Negative (Negative); PARAINFLUENZA 2 Negative (Negative); PARAINFLUENZA 3 Negative (Negative); RHINOVIRUS Negative (Negative); RSV A Negative (Negative); RSV B Negative (Negative)
--- NOTE | 2019-10-10 04:51 | NUR ---
PATIENT ALERT AND ORIENTED X4. VERY [place]. UP IN ROOM ADLIB. COOPERATIVE AND PLEASANT, LOOKING FORWARD TO DISCHARGE TODAY. BS MONITORED PER ORDER DUE TO STEROIDS IVP. WEARING PAD DUE TO STRESS INCONTINENCE. LUNGS REMAIN DIMINISHED, HOWEVER, LESS COARSE. SLEPT WELL DURING THE NIGHT. WILL MONITOR.
[2019-10-10 07:54] VITALS: BP 149/62
--- NOTE | 2019-10-10 17:24 | NUR ---
PT ALERT AND ORIENETD TIMES FOUR. VSS, PT DENIES PAIN. PT TOLERATES MEDS AND MEALS. PT UP AB SHAKA WITH STEADY GAIT. PT EXCITED FOR POSSIBLE DISCHARGE HOME TOMORROW. PT SLOWLY PROGRESSING [facility] POC GOALS.
[2019-10-10 19:42] VITALS: BP 129/57
--- NOTE | 2019-10-11 04:58 | NUR ---
PATIENT ALERT AND ORIENTED X4. UP ADLIB WITH SBA IN ROOM. PATIENT ASSISTED WITH SHOWER BY INTENSIVE CARE AMBULANCE PARAMEDIC AND PATIENT STATED SHE REALLY APPRECIATED IT AND FELT BETTER. BREATH SOUNDS DIMINISHED AND LUNGS ARE LESS COARSE. 02SAT ON RA 98-100% DISCHARGE PENDING FOR TODAY. RESTING QUIETLY. WILL MONITOR.
[2019-10-11 07:26] VITALS: BP 142/59
--- NOTE | 2019-10-11 10:17 | NUR ---
SW reviewed chart and spoke with nursing. Pt did not discharge home over the weekend. [facility] has accepted pt on service when discharged. SW updated liaison. SW is following to assist as needed with discharge planning.
--- NOTE | 2019-10-11 10:59 | NUR ---
ASSUMED CARE FOR PT AT 0700. PT AOX4, VSS, NO C/O PAIN. PT IS WORKING WITH PT/OT. PT WALKED IN HALLS WITH SB ASSIST, GAIT BELT, AND WALKER. PT ON RA MAINTAINING O2 SATS ABOVE 92% AT THIS TIME. CALL LIGHT/PERSONAL ITEMS/HOURLY ROUNDS COMPLETED. WILL CONTINUE TO MONITOR PT.
[2019-10-11 14:05] VITALS: BP 140/59
[2019-10-11 20:30] VITALS: BP 136/79
--- NOTE | 2019-10-12 05:54 | NUR ---
ASSUMED PT CARE AT APPROX. 1925. PT IS A&OX4. PT IS HARD OF HEARING. PT IS A FALL RISK AND CALLS OUT APPROPRIATELY. PT TAKES ALL OF HER EVENING MEDICATION WHOLE. PT HAS NO COMPLAINTS OF PAIN. PT IS RESTING IN THE ROOM, WILL CONTINUE TO MONITOR.
[2019-10-12 07:54] VITALS: BP 144/64
--- NOTE | 2019-10-12 15:23 | NUR ---
SW reviewed chart and spoke with nursing. Pt is progressing towards goals of discharge. Discharge home is anticipated for tomorrow. [facility] is following for services. Plan is for pt to discharge home when medically stable. [facility] is following to assist as needed with discharge planning.
[2019-10-12 18:54] VITALS: BP 131/60
--- NOTE | 2019-10-12 19:22 | NUR ---
ASSUMED CARE OF PATIENT AT 0715, PATIENT ALERT AND ORIENTED X 4, [place]. NO C/O PAIN THIS SHIFT. PATIENT LUNGS WHEEZY AND DIMINISHED, RECEIVED BREATHING TREATMENTS Q4HR WHILE AWAKE. COUGH IMPROVING. RIGHT WRIST IV IN PLACE. PATIENT UP WITH SBA. VSS. POSSIBLE DISCHARGE TOMORROW PER DR PORTER, SOLU MEDROL CHANGED TO PO PREDNISONE STARTING AT 2100. WILL CONTINUE TO MONITOR.
[2019-10-12 20:45] VITALS: BP 152/71
--- NOTE | 2019-10-13 04:04 | NUR ---
ASSUMED PT CARE AT 1910. PT IS A&OX4. PT IS A FALL RISK. PT DENIES PAIN. PT IS ANTICIPATING DISCHARGE. PT TOOK SCHEDULED MEDICATION. PT IS PLEASANT READING IN BED WHILE WATCHING TV. I TRIED TO FLUSH THE IV AND IT WAS LEAKING. I TRIED TO SALVAGE IT. HAD TO DC THE IV. I TRIED TWICE AND MY CHARGE NURSE TRIED BEFORE WE ASKED ANOTHER NURSE OVER TO PUT PLACE THE IV. A 22G WAS PUT IN THE PT'S LEFT FOREARM. PT IS ALSEEP IN ROOM. WILL CONITNUE TO MONITOR.
[2019-10-13 09:51] VITALS: BP 155/63
--- NOTE | 2019-10-13 10:31 | NUR ---
SW reviewed chart and spoke with nursing. Pt changed to PO steroids. SW met with pt at bedside to discuss discharge plan. Pt states she is unsure if she needs HH at time of discharge. Awaiting attending physician to evaluate pt to determine if she is ready for discharge home today. [facility] is following and can provide HH services if needed. [facility] is following to assist as needed with discharge planning.
--- NOTE | 2019-10-13 12:39 | NUR ---
Assess due to length of stay. Admit with copd exacerbation. Advanced age 84. Small stature, and BMI is adequate 26. On regular diet, eating 50-100% of meals. Mild wt change 6 lb over past year but has averaged 123-130 lb >1 yr. Discharge planning in progress. Low nutrition risk
[2019-10-13 16:34] VITALS: BP 125/89
--- NOTE | 2019-10-13 19:37 | NUR ---
ASSUMED CARE OF PATIENT AT 0715, PATIENT ALERT AND ORIENTED. PATIENT STATED THIS AM SHE DIDN'T FEEL WELL AND REPORTED TO ARNOLD HER CAREGIVER ALSO NOT FEELING WELL. LUNGS WHEEZY AND COARSE, CONGESTED COUGH NOTED. RECEIVING SCHEDULED BREATHING TREATMENTS. DR PORTER HERE THIS AFTERNOON, INFORMED THE DOCTOR OF PATIENT'S COMPLIANT, NO DISCHARGE TODAY, STARTED ON NEW IV ANTIBIOTIC/LEVOFLOXACIN THIS AFTERNOON. LEFT HAND IV IN PLACE, AND REMAINS PATENT. PATIENT UP TO BATHROOM IN ROOM. WILL CONTINUE TO MONITOR.
[2019-10-13 20:24] VITALS: BP 128/72
[2019-10-14 06:15] LABS: HEMATOCRIT 39.3 % (37.0-47.0); HEMOGLOBIN 12.4 gm/dL (12.0-15.0); MCH 28.3 pg (26.0-34.0); MCHC 31.6 g/dL (28.0-37.0); MCV 89.6 fL (80.0-100.0); RBC 4.38 mil/uL (4.20-5.00); RDW 14.4 % (10.5-14.5); WBC 11.7 thou/uL (4.0-11.0)
[2019-10-14 06:19] LABS: CALCIUM 8.5 mg/dL (8.5-10.1); CREATININE 0.9 mg/dL (0.6-1.0); POTASSIUM 5.2 mmol/L (3.5-5.1)
--- NOTE | 2019-10-14 06:23 | NUR ---
ASSUMED PT CARE AT 1920. PT IS A&OX4. PT HAS A LEFT WRIST IV SALINE LOCKED. PT HAS AN USTEADY GAIT.PT HAS NO COMPLAINTS OF PAIN. PT IS CONGESTED WITH A COUGH. LUNG SOUND DIMINISHED AND COARSE. NO PRODUCTION OF SPUTUM. PT IS LOOKING FORWARD TO GOING HOME. WILL CONTINUE TO MONITOR.
[2019-10-14 07:25] VITALS: BP 135/70
[2019-10-14] MEDS ORDERED: MUCINEX600 MG PO (10:56)
[2019-10-14] MEDS ORDERED: CEFDINIR300 MG PO (10:57)
[2019-10-14] MEDS ORDERED: LASIX 20 MG TAB20 MG PO (10:57)
[2019-10-14] MEDS ORDERED: IPRAT-ALBUT 0.5-3 ML INH (10:57)
[2019-10-14] MEDS ORDERED: PREDNISONE 20 M20 M1 PO (10:59)
[2019-10-14 11:32] VITALS: BP 135/70
--- NOTE | 2019-10-14 11:43 | NUR ---
ASSUMED CARE OF PT AT 0700. PT IS AOX4, NO C/O PAIN, VSS. PT HAS COARSE LUNG SOUNDS, UP AD SHAKA TO RESTROOM WITH STANDBY ASSIST. PT TOLERATES DIET, TAKES PILLS WHOLE WITH WATER. PT USES CALL LIGHT APPROP. CALL LIGHT IN REACH/PERSONAL ITEMS. WILL CONTINUE TO MONITOR.
--- NOTE | 2019-10-14 13:40 | NUR ---
DISCHARGE/HOME HEALTH ORDERS COMPLETED AND FAXED TO [facility]. CALL PLACED TO [facility], SPOKE WITH YOVANI. YOVANI TO NOTIFY HOME HEALTH TEAM. UNIT SW AWARE.
--- NOTE | 2019-10-14 13:44 | NUR ---
DISCHARGE NOTE: SW reviewed chart and spoke with nursing and attending physician. Pt is medically stable for discharge home today. Orders writtend for home health. senior media planner faxed orders/summary to [facility]. Contact info for HH in pt's discharge summary. Pt's family to provide transportation home. No further SW needs identified at this time, but is available to assist should needs arise.
--- NOTE | 2019-10-14 15:26 | NUR ---
PT RECEIVED DISCHARGE INSTRUCTIONS, PRESCRIPTIONS, AND BUPRNORPHINE PATCHES TO TAKE HOME. PT IS AOX4, VSS, NO C/O PAIN. PT'S DAUGHTER IS TAKING HER HOME IN A CAR TO RECEIVE HOME HEALTH.
== END 2019-10-14 16:50 | disposition home health service (06) | DRG 191 ==
LOC: 4S 14:58 → 4N 15:04 → 4W 15:04 → 4N 10-07 15:05 → ENTRNSPT 10-14 16:06 → EDTRNSPTSTS 10-14 16:08 → 4N 10-14 16:50
PROVIDERS: Internal Medicine Geriatric Medicine; ADMIT Internal Medicine
DX: J44.1 Chronic obstructive pulmonary disease with (acute) exacerbation (principal); E44.0 Moderate protein-calorie malnutrition; F11.20 Opioid dependence, uncomplicated; I10 Essential (primary) hypertension; G89.4 Chronic pain syndrome; M19.90 Unspecified osteoarthritis, unspecified site; Z68.26 Body mass index [BMI] 26.0-26.9, adult; Z99.81 Dependence on supplemental oxygen; Z79.899 Other long term (current) drug therapy; Z88.2 Allergy status to sulfonamides; Z90.89 Acquired absence of other organs; Z90.710 Acquired absence of both cervix and uterus; Z28.21 Immunization not carried out because of patient refusal
CPT/HCPCS: 10047; 10790

== ENCOUNTER → 2019-10-27 | Outpatient (CLI) | payer OTHER ==
[~2019-10-27] VITALS: Ht 149.9 cm; Wt 59.1 kg
[~2019-10-27] MED LIST changes: +CEFDINIR300 MG PO; +IPRAT-ALBUT 0.5-3 ML INH; +LASIX 20 MG TAB20 MG PO; +MUCINEX600 MG PO; +PREDNISONE 20 M20 M1 PO
[2019-10-27 09:44] VITALS: BP 143/71
--- NOTE | 2019-10-27 10:14 | NUR ---
Pain Clinic Assessment: 1. History of Osteoarthritis: back neck History of Rheumatoid Arthritis: RIGHT HAND YES 2. Height: 4 ft. 11 in. 149.9 cm. Weight: 130.4 lb. oz. 59.149 kg. Patient's BMI: 26.3 3. Vital Signs: BP: 143/71 Pulse: 91 Resp: 14 Temp: 02 Sat: 97 ECG Mon: 4. Pain Intensity: 9 5. Fall Risk: Dizziness: N Needs help standing or walking: Y Fallen in the last 3 months: N Fall risk comments: USES WALKER-DIDNT BRING TODAY, FALLEN 2-3 TIMES SINCE LAST VISIT- LEGS ARE WEAK GAVE OUT, AND UNSTEADY ON FEET 6. Patient on Blood Thinner: None 7. History of Hypertension: Y 8. Opioid Therapy greater than 6 weeks: Y Opiate Contract Signed: 05/06/16 9. Risk Assessment Tool Provided: mod risk 10. Functional Assessment Tool: 58/70 11. Recreational Drug Use: Never Drug Type: Tobacco Use: Never Smoker Tobacco Type: Amount or Packs/day: How Many Years: Alcohol Use: No Frequency: Quant:
--- NOTE | 2019-11-05 08:39 | HPC ---
[facility] [address] [email or web address] [address] PAIN MANAGEMENT CONSULTATION Name: ALEJANDRA RICO Room #: REG [facility]#: [id number] Admission: 10/27/19 Attend Phys: Kiara Schwartz MD Discharge: Date of : 33 Report #: [id number] THIS REPORT FOR: cc: Pedro Anne MD,Pedro Schwartz,Kiara Boyle MD ~ THIS REPORT FOR: //name// CC: Pedro Schwartz DATE OF SERVICE: 10/27/2019 CHIEF COMPLAINT: Neck pain and head pain. HISTORY: The patient is an 84-year-old female who has been seen in the pain clinic. She has returned today with continued pain. Rates her pain as a 9/10. States that the pain is in her neck and her head. She described as chronic. There is some radiating components. There is some sharp pain. Notes that the pain is more problematic when she rotates and tilts her head to the left. She has been using Voltaren gel and finds this is helpful. She has had sinus problems as well. She has returned today for renewal of her medications. She is not experiencing any withdrawals from her medications. She is not having problems with mentation regarding use of her medications. ALLERGIES: SULFA. CURRENT MEDICATIONS: Carafate, oxycodone 5/325, Voltaren gel, prednisone, Breo, amlodipine, Singulair, Protonix, hydralazine, Combivent, Advair, Bentyl, and Paxil. PAIN CLINIC ASSESSMENT AND PQRS: 1. The patient has osteoarthritis in her neck and back. She also has rheumatoid arthritis in her hands and feet. 2. Height 4 feet 1 inch, weight 130 pounds, BMI is 26.3. 3. Vital Signs: Blood pressure 143/71, pulse 91, respiratory rate 14, and room air saturation 97%. 4. Pain intensity /10. 5. Fall history: The patient has not fallen since we saw her last. 6. Blood thinner. The patient is not on a blood thinning medication. 7. Hypertension. The patient is being treated for hypertension. 8. Opioids greater than 6 weeks. The patient receives medication from one source, pain clinic. 9. Risk assessment tool, moderate. 10. Functional assessment tool, 58/70. 11. Recreational drug use: The patient denies. [address] [address] PAIN MANAGEMENT CONSULTATION Name: WALTER RICOHER Montes Room #: [facility] [id number] Admission: 10/27/19 Attend Phys: Kiara Schwartz MD Discharge: Date of : 33 Report #: [id number] 12. Tobacco: The patient has never smoked. 13. Alcohol. The patient denies frequent use of alcoholic beverages. PHYSICAL EXAMINATION: GENERAL: The patient is a well-developed, well-nourished white female. Appears her stated age of 84 years. She is accompanied by her daughter. HEENT: Normocephalic, atraumatic. Extraocular eye muscles intact. The patient notes some decreased range of motion in her neck. Notes pain and discomfort in the occipital area, worse with flexion and extension. HEART: Regular. ABDOMEN: Nontender. EXTREMITIES: Upper extremity muscle strength 4+/5 for the major muscle groups in the upper extremity. The patient has scoliosis. Her gait is somewhat unsteady. The patient uses a walker. Lower extremity muscle strength 4/5. IMPRESSION: 1. Chronic low back pain. 2. Hypertension. 3. Neck pain that radiates into the occipital area. 4. Chronic obstructive pulmonary disease. 5. Depression. 6. Osteoarthritis. 7. Scoliosis. 8. Complex medication management using opioids. RECOMMENDATIONS: We discussed treatment options with the patient. She continues to find that her medications are helpful. She has recently been released from the hospital. Has had an exacerbation of COPD. She is not having any problems with her medications. She is more active. She does not have any significant problems with constipation. We will continue with her medications. She will call us if she has any concerns. A script for her medications has been rewritten. The patient will continue with diclofenac gel to the affected area of her neck. She will also continue with Butrans 5 mg 1 patch per week. She will continue with oxycodone for her breakthrough pains 5 mg tablets. She will call us if she has any concerns. We would like to thank you for letting us participate in her care. We hope she continues to improve. <ELECTRONICALLY SIGNED> By: Kiara Schwartz MD 11/05/19 0839 [id number] Kiara Schwartz MD /nt
== END ==
LOC: PAIN 06:53
DX: M54.5 Low back pain (principal); G89.29 Other chronic pain; M54.2 Cervicalgia; R51 Headache; J44.9 Chronic obstructive pulmonary disease, unspecified; M19.90 Unspecified osteoarthritis, unspecified site; M41.9 Scoliosis, unspecified; F32.9 Major depressive disorder, single episode, unspecified; Z88.2 Allergy status to sulfonamides; Z79.891 Long term (current) use of opiate analgesic; Z79.899 Other long term (current) drug therapy

== ENCOUNTER → 2019-12-01 | Outpatient (CLI) | payer OTHER ==
[~2019-12-01] VITALS: Ht 144.8 cm; Wt 59.6 kg
[~2019-12-01] MED LIST changes: +BUTRANS1 EAC4 INTRADERM
[2019-12-01 09:36] VITALS: BP 180/89
--- NOTE | 2019-12-01 09:46 | NUR ---
Pain Clinic Assessment: 1. History of Osteoarthritis: back neck History of Rheumatoid Arthritis: RIGHT HAND YES 2. Height: 4 ft. 9 in. 144.8 cm. Weight: 131.4 lb. oz. 59.603 kg. Patient's BMI: 28.4 3. Vital Signs: BP: 180/89 Pulse: 86 Resp: 20 Temp: 02 Sat: 94 ECG Mon: 4. Pain Intensity: 8 5. Fall Risk: Dizziness: N Needs help standing or walking: N Fallen in the last 3 months: N Fall risk comments: USES WALKER-DIDNT BRING TODAY, FALLEN 2-3 TIMES SINCE LAST VISIT- LEGS ARE WEAK GAVE OUT, AND UNSTEADY ON FEET 6. Patient on Blood Thinner: None 7. History of Hypertension: Y 8. Opioid Therapy greater than 6 weeks: Y Opiate Contract Signed: 05/06/16 9. Risk Assessment Tool Provided: mod risk 10. Functional Assessment Tool: 58/70 11. Recreational Drug Use: Never Drug Type: Tobacco Use: Never Smoker Tobacco Type: Amount or Packs/day: How Many Years: Alcohol Use: No Frequency: Quant:
--- NOTE | 2019-12-06 22:53 | HPC ---
[facility] [place] [address] PAIN MANAGEMENT CONSULTATION Name: ALEJANDRA RICO Room #: REG ALEKSANDAR MaldonadoShine#: [id number] Admission: 12/01/19 Attend Phys: Kiara Schwartz MD Discharge: Date of : 33 Report #: [id number] THIS REPORT FOR: cc: Pedro Anne MD,Pedro Schwartz,Kiara Boyle MD ~ CC: Pedro Schwartz DATE OF SERVICE: 12/01/2019 CHIEF COMPLAINT: The pain medicine is not working as long as it had been. It stops working after about 4 days. HISTORY: The patient is an 84-year-old female who has been followed in the pain clinic because of continued pain. She has pain in her left neck area. Sometimes has pain down in her shoulders. She also has chronic pain in her back and neck. She suffers from rheumatoid arthritis. Has rheumatological pain in her right hand. She is on opioid medications as well as Butrans patch. Feels that the patch was initially working pretty well. Now it stops working after about 3 days. She feels that a stronger dose might be more helpful. She and her daughter would like to try a higher dose of the medication. She also finds that Percocet twice daily is helpful. She takes in the morning as well as at night. She rates her pain as an 8/10. ALLERGIES: SULFA. CURRENT MEDICATIONS: Carafate, oxycodone 5/325, Voltaren gel to the affected shoulder areas, prednisone, Breo, amlodipine, Singulair, Protonix, hydralazine, Combivent, Advair, Bentyl, Paxil, Butrans patch 5 mg 7 days with rotation on the skin. PAIN CLINIC ASSESSMENT AND PQRS: 1. The patient has osteoarthritic changes involving her neck as well as in her back. She has rheumatological changes in her hands and her feet. 2. Height 4 feet 9 inches, weight 131 pounds, BMI is 28.4. 3. Vital signs: Blood pressure 180/89, pulse 86, respiratory rate 20, room air saturation 95%. 4. Pain intensity, 05/08. 5. Fall history. The patient uses a walker. She has fallen 2-3 times since we saw her last. She has not had to go to the Emergency Room. She feels that her legs give out. She does have a somewhat unsteady gait. 6. Blood thinner. The patient is not on a blood thinning medication. 7. Hypertension. The patient is being treated for hypertension. 8. Opioids greater than 6 weeks. The patient receives medication from one source, the pain clinic. [address] [address] PAIN MANAGEMENT CONSULTATION Name: ALEJANDRA RICO Room #: REG CL Elaine#: [id number] Admission: 12/01/19 Attend Phys: Kiara Schwartz MD Discharge: Date of : 33 Report #: [id number] 9. Risk assessment tool, 58/70. 10. Recreational drug use. The patient denies. 11. Tobacco. The patient denies at this juncture. She has never smoked tobacco. 12. Alcohol. The patient denies frequent use of alcoholic beverages. PHYSICAL EXAMINATION: GENERAL: The patient is a well-developed, well-nourished, white female. Appears her age of 84 years. She is alert and oriented x 3. She is accompanied by her daughter. HEENT: The patient complains of some pain and discomfort in the left neck area as well as in the shoulder area. Sometimes notes pain radiates in the left side of her head. It usually is confined to the left side. Pain is worse with flexion and extension. HEART: Regular rate. LUNGS: Decreased breath sounds. ABDOMEN: Nontender. EXTREMITIES: Upper extremity muscle strength 4-/5 for the major muscle groups in the upper extremity. The patient has scoliosis. Her gait is somewhat unsteady. She uses a walker. Muscle strength 4/5 for the major muscle groups in the lower extremity. IMPRESSION: 1. Chronic low back pain. 2. Hypertension. 3. Neck pain that radiates into the occipital area. 4. Chronic obstructive pulmonary disease. 5. Depression. 6. Osteoarthritis. 7. Scoliosis. 8. Complex medical management using opioids. RECOMMENDATIONS: We discussed treatment options with the patient. The patient feels that her medications are helpful. She finds that the Butrans patch of 5 mcg starts to wane after about 3-4 days. She feels that a higher dose would be more efficacious. She is not having any problems with her use of Percocet. She would like to try to move up to the next level of the Butrans patch. We discussed the risks and benefits of opioid medications. We explained that opioid medications can become less effective as time goes on. We will increase her Butrans patch to 7.5 mcg q.7 days. Hopefully, she finds that this has improved things. She will also continue with Percocet 5 mg 1 p.o. b.i.d. to t.i.d. We would like to thank you for letting us participate in her care. She will also continue use of Voltaren gel to the upper extremities. The patient will [address] [address] PAIN MANAGEMENT CONSULTATION Name: ALEJANDRA RICO [facility]: [id number] Admission: 12/01/19 Attend Phys: Kiara Schwartz MD Discharge: Date of : 33 Report #: [id number] call us if she has any concerns with the increased medication. Her daughter will call if she has any concerns about the increased medication. <ELECTRONICALLY SIGNED> By: Kiara Schwartz MD 12/06/19 2253 [id number] 09 Kiara Schwartz MD /[facility]
== END ==
LOC: PAIN 06:42
DX: M54.5 Low back pain (principal); M54.2 Cervicalgia; G89.29 Other chronic pain; I10 Essential (primary) hypertension; J44.9 Chronic obstructive pulmonary disease, unspecified; F32.9 Major depressive disorder, single episode, unspecified; M19.90 Unspecified osteoarthritis, unspecified site; M41.80 Other forms of scoliosis, site unspecified; Z88.2 Allergy status to sulfonamides; Z79.899 Other long term (current) drug therapy

== ENCOUNTER → 2020-01-28 | Outpatient (CLI) | payer OTHER ==
[~2020-01-28] VITALS: Ht 144.8 cm; Wt 61.1 kg
[2020-01-28 10:04] VITALS: BP 161/65
--- NOTE | 2020-01-28 10:09 | NUR ---
Pain Clinic Assessment: 1. History of Osteoarthritis: back neck History of Rheumatoid Arthritis: RIGHT HAND YES 2. Height: 4 ft. 9 in. 144.8 cm. Weight: 134.6 lb. oz. 61.054 kg. Patient's BMI: 29.1 3. Vital Signs: BP: 161/65 Pulse: 61 Resp: 18 Temp: 02 Sat: 95 ECG Mon: 4. Pain Intensity: 9 5. Fall Risk: Dizziness: N Needs help standing or walking: N Fallen in the last 3 months: N Fall risk comments: USES WALKER-DIDNT BRING TODAY, FALLEN 2-3 TIMES SINCE LAST VISIT- LEGS ARE WEAK GAVE OUT, AND UNSTEADY ON FEET 6. Patient on Blood Thinner: None 7. History of Hypertension: Y 8. Opioid Therapy greater than 6 weeks: Y Opiate Contract Signed: 05/06/16 9. Risk Assessment Tool Provided: mod risk 10. Functional Assessment Tool: 58/70 11. Recreational Drug Use: Never Drug Type: Tobacco Use: Never Smoker Tobacco Type: Amount or Packs/day: How Many Years: Alcohol Use: No Frequency: Quant:
--- NOTE | 2020-01-31 08:56 | HPC ---
[facility] [place] [address] [address] PAIN MANAGEMENT CONSULTATION Name: ALEJANDRA RICO [facility] #[facility] [id number] Admission: 01/28/20 Attend Phys: Nadya Gomez Discharge: Date of : 33 Report #: [id number] THIS REPORT FOR: cc: Pedro Anne MD, Christopher B. MD Hocker, Amanda CNS ~ CC: Gabriele Schwartz MD DATE OF SERVICE: 01/28/2020 CHIEF COMPLAINT: Neck pain and head pain. HISTORY OF PRESENT ILLNESS: This is a very pleasant 84-year-old female who is followed in the pain clinic for her ongoing neck pain and occipital pain, most problematic on the left side of her neck. She has been treated with opioid medications for quite some time. Most recently, Dr. Schwartz increased her Butrans patch from 5 mcg to 7.5 mcg. The patient feels that this has been very beneficial in decreasing her pain. She has noticed a significant decrease in her overall pain, though she continues to rate it quite high at 9/10. She states that by the sixth day, she has noticed that her patch does seem to not be as effective. She reports she continues to take two of her oxycodone every day and uses her Voltaren gel as needed to her neck area. The patient denies any problems with constipation as a result of her increase of opioids. She does state today that she is tired of being at home and was thankful to get to come to the doctor today. She has been on lockdown in her family's house due to the COVID outbreak with several children. ALLERGIES: SULFA. CURRENT LIST OF MEDICATIONS: Oxycodone 5/325 b.i.d., Butrans patch 7.5 mcg daily, diclofenac gel, amlodipine, Singulair, Protonix, hydralazine, Bentyl, paroxetine and Carafate. PQRS: 1. She has history of arthritic changes in her neck and back and rheumatological changes in her hands and feet. 2. Height is 4 feet 9 inches, weight is 134, BMI is 29. 3. Vital signs 161/65, pulse is 61, respirations 18, oxygen sat is 95. 4. Pain score is 9/10. 5. Denies dizziness, does not need help walking or standing, has not fallen in the last 3 months. She does have a walker at home, though she rarely uses. 6. The patient is not on any blood thinners. She does take medicine for hypertension. Her opioid therapy is greater than 6 weeks; therefore, an opioid signed contract is on the chart. Risk assessment is moderate. Functional assessment is 58/70. 7. Recreational drug use, she denies. She is not a [place] [address] PAIN MANAGEMENT CONSULTATION Name: ALEJANDRA RICO Room #: [facility] [id number] Admission: 01/28/20 Attend Phys: Nadya Gomez Discharge: Date of : 33 Report #: [id number] alcohol. According to the prescription monitoring system, she most recently filled her prescriptions on 12/30/2019 and is due to fill those today. She is filling it in a timely fashion from our physician. According to the CDC guidelines, her morphine mEq is 23 MMEs per day. PHYSICAL EXAMINATION: GENERAL: This is a well-developed, well-nourished white female who appears her stated age of 84. She is alert and orientated. She is accompanied with her daughter. Her speech is fluent. HEENT: She complains of discomfort in her left neck that radiates into her occipital area as well and into her shoulder. Pain is increased with flexion and extension of her neck. EXTREMITIES: Upper and lower extremity strength judged to be 4/5, slightly diminished. She does have scoliosis and her gait is somewhat unsteady. She is not using her walker today, though she does at times. IMPRESSION: 1. Chronic low back pain. 2. Neck pain that radiates into her occipital area. 3. Hypertension. 4. Depression. 5. Scoliosis. 6. Osteoarthritis. 7. Complex medical management using opioid medications. We reviewed the fact that opiate medications are being used to provide analgesia adequate to support activities of daily living, not attempting to achieve a specific pain score on the 0-10 Visual Analog Scale. The current opiate medications are providing sufficient analgesia to allow the patient to participate in activities of daily living. The patient is not exhibiting any aberrant behavior suggestive of drug diversion. The patient is not having any adverse reactions to medications. The patient is not suffering from daytime somnolence or mental acuity changes. The patient is managing opiate-induced constipation with appropriate pifq-[id number] agents and dietary considerations. The patient was counseled on concern for caution with operating a motor vehicle while using opiate medications. PLAN: 1. We discussed treatment options with the patient today. The patient feels that the increase in her Butrans from 5 to 7.5 mcg has been very beneficial, though she does notice some end of dose failure on day 6. I encouraged her to increase her use of her Voltaren gel on those days from 2 times a day to 4 in the cervical region and her hands, if she needs to. The patient verbalized understanding. She will try that. [address] [address] PAIN MANAGEMENT CONSULTATION Name: ALEJANDRA RICO Room #: [facility] NormaShine#: [id number] Admission: 01/28/20 Attend Phys: Nadya Gomez Discharge: Date of : 33 Report #: [id number] 2. We will refill her Butrans patch #4 with one additional refill as well as her oxycodone 5/325, #60. These will be sent to her pharmacy for refill for today and again in [address] Alphonso Schwartz. 3. The patient is not needing her Voltaren gel. We sent these to [facility] that she should have plenty of refills and I encouraged her to increase the use on day 6 and 7 of her patch. 4. The patient will return in 2 months for medication management refills. The patient is seen in collaboration with Dr. Schwartz. <ELECTRONICALLY SIGNED> By: Nadya Gomez 01/31/20 [id number] Nadya Gomez /nt
== END ==
LOC: PAIN 07:20
DX: M54.2 Cervicalgia (principal); R51 Headache; M54.5 Low back pain; G89.4 Chronic pain syndrome; I10 Essential (primary) hypertension; F32.9 Major depressive disorder, single episode, unspecified; M19.90 Unspecified osteoarthritis, unspecified site; M41.9 Scoliosis, unspecified; F11.20 Opioid dependence, uncomplicated; Z79.899 Other long term (current) drug therapy

== ENCOUNTER → 2020-03-29 | Outpatient (CLI) | payer OTHER ==
[~2020-03-29] VITALS: Ht 144.8 cm; Wt 62.4 kg
[2020-03-29 09:58] VITALS: BP 180/73
--- NOTE | 2020-03-29 10:06 | NUR ---
Pain Clinic Assessment: 1. History of Osteoarthritis: back neck History of Rheumatoid Arthritis: RIGHT HAND YES 2. Height: 4 ft. 9 in. 144.8 cm. Weight: 137.6 lb. oz. 62.415 kg. Patient's BMI: 29.8 3. Vital Signs: BP: 180/73 Pulse: 64 Resp: 18 Temp: 02 Sat: 95 ECG Mon: 4. Pain Intensity: 10 AT WORST 5. Fall Risk: Dizziness: N Needs help standing or walking: N Fallen in the last 3 months: N Fall risk comments: USES WALKER-DIDNT BRING TODAY, FALLEN 2-3 TIMES SINCE LAST VISIT- LEGS ARE WEAK GAVE OUT, AND UNSTEADY ON FEET 6. Patient on Blood Thinner: None 7. History of Hypertension: Y 8. Opioid Therapy greater than 6 weeks: Y Opiate Contract Signed: 05/06/16 9. Risk Assessment Tool Provided: mod risk 10. Functional Assessment Tool: 58/70 11. Recreational Drug Use: Never Drug Type: Tobacco Use: Never Smoker Tobacco Type: Amount or Packs/day: How Many Years: Alcohol Use: No Frequency: Quant:
--- NOTE | 2020-04-07 15:47 | HPC ---
[facility] [address] [address] PAIN MANAGEMENT CONSULTATION Name: ALEJANDRA RICO Room #: REG [facility]#: [id number] Admission: 03/29/20 Attend Phys: Kiara Schwartz MD Discharge: Date of : 33 Report #: [id number] THIS REPORT FOR: cc: Pedro Anne MD,Pedro Schwartz,Kiara Boyle MD ~ CC: Pedro Schwartz DATE OF SERVICE: 03/29/2020 CHIEF COMPLAINT: Here for medication renewal. HISTORY: The patient feels she is doing much better since the Butrans was increased 2 weeks ago. She has less pain in the morning, but it gets worse as the day goes on. She has been using prednisone at this juncture. She does have rheumatoid arthritis. She has noted a weight gain of about 3 pounds. She suffers from rheumatoid arthritis. She rates her pain as a 10 at its worse. ALLERGIES: SULFA. CURRENT MEDICATIONS: Carafate, oxycodone 5/325, Voltaren gel to the affected shoulder area, prednisone, Breo, amlodipine, Singulair, Protonix, hydralazine, Combivent, Advair, Bentyl, Paxil, Butrans patch q 7 days. PAIN CLINIC ASSESSMENT AND PQRS: 1. The patient has osteoarthritic changes in her neck as well as in her back. She has rheumatological changes in her hands and in her feet. 2. Height: 4 feet 9 inches, weight 137 pounds, BMI is 29. 3. Vital Signs: Blood pressure 180/70, pulse 64, respiratory rate 18, room air saturation 95%. 4. Pain intensity: 10 at its worse. 5. Fall History: The patient uses a walker. She did not bring it today. She has fallen 2-3 times since we saw her last. She notes that her legs are weak. She states that they give out. She feels somewhat unsteady on her feet. 6. Blood thinner: The patient is not on a blood thinning medication. 7. Hypertension: The patient is being treated for hypertension. 8. Opioids greater than 6 weeks: The patient receives medication from the pain clinic. 9. Risk assessment tool: Moderate for use. 10. Functional assessment tool: 58/70. 11. Recreational drug use: The patient denies. 12. Tobacco: The patient has never smoked. 13. Alcohol: The patient denies use of alcoholic beverages. PHYSICAL EXAMINATION: [facility] [address] [place] [address] PAIN MANAGEMENT CONSULTATION Name: ALEJANDRA RICO Room #: [facility]#: [id number] Admission: 03/29/20 Attend Phys: Kiara Schwartz MD Discharge: Date of : 33 Report #: [id number] GENERAL: The patient is a well-developed, well-nourished white female. Appears her stated age of [age] years old. She is alert and oriented x 3. Her affect is appropriate. She is accompanied by her daughter. NECK: The patient complains of some pain and discomfort in the left neck area. She has pain in the left shoulder area. She has pain that radiates down into her side of her head. HEART: regular LUNGS: Decreased breath sounds. ABDOMEN: Nontender. EXTREMITIES: Upper extremity muscle strength judged to be 4-/5 for the major muscle groups in the upper extremity. The patient has scoliosis. She has a gait that is somewhat unsteady. Walks using a walker. Muscle strength in the upper extremity 4+/5 for the major groups in the upper extremity and 4/5 for the major muscle groups in the lower extremity. IMPRESSION: 1. Chronic low back pain. 2. Hypertension. 3. Pain that radiates into the occipital area. 4. Chronic obstructive pulmonary disease. 5. Depression. 6. Osteoarthritis. 27. Scoliosis. 8. Complex medical management using opioids. RECOMMENDATIONS: We discussed treatment options with the patient. At this juncture, we will continue with her medications. She feels that the medications can be helpful. A script for her medications have been renewed. She will call us if she has any concerns. Her daughter will call us if there are any concerns on her part. A script for Voltaren gel 4%, has been renewed. The patient will also continue with Butrans 7.5 mg every 7 days. She will continue with Percocet for breakthrough pain 2-3 times a day. We would like to thank you for letting us participate in her care. We hope she continues to improve. <ELECTRONICALLY SIGNED> By: Kiara Schwartz MD 04/07/20 1547 [id number] Kiara Schwartz MD /abilio
== END ==
LOC: PAIN 06:59
PROVIDERS: ATTEND Anesthesiology Pain Medicine
DX: M54.5 Low back pain (principal); I10 Essential (primary) hypertension; J44.9 Chronic obstructive pulmonary disease, unspecified; F32.9 Major depressive disorder, single episode, unspecified; M41.9 Scoliosis, unspecified; Z87.891 Personal history of nicotine dependence

== ENCOUNTER → 2020-06-02 | Outpatient (CLI) | payer OTHER ==
[~2020-06-02] VITALS: Ht 144.8 cm; Wt 61.2 kg
--- NOTE | ~2020-06-02 | HPC ---
[facility] [place] [address] [address] PAIN MANAGEMENT CONSULTATION Name: ALEJANDRA RICO Room #: REG [facility]#: [id number] Admission: 06/02/20 Attend Phys: Kiara Schwartz MD Discharge: Date of : 33 Report #: [id number] THIS REPORT FOR: cc: Pedro Anne MD,Pedro Schwartz,Kiara Boyle MD ~ CC: Pedro Schwartz DATE OF SERVICE: 06/02/2020 CHIEF COMPLAINT: Neck and back pain. HISTORY: The patient is an 85-year-old female who has been followed in the pain clinic because of pain involving her left arm as well as some hip pain. She has found that her medications are helpful. She finds her pain is quite problematic without them. Rates her pain as 10 without medications. She does suffer from rheumatoid arthritis. She is here for medication management. ALLERGIES: SULFA. CURRENT MEDICATIONS: Carafate, oxycodone 5/325, Voltaren gel to the affected shoulder area, prednisone, Breo, amlodipine, Singulair, Protonix, hydralazine, Combivent, Advair, Bentyl, bisacodyl, Paxil, Butrans patch every 7 days. PAIN CLINIC ASSESSMENT AND PQRS: 1. The patient has osteoarthritic changes in her neck as well as in her back. She has some rheumatological changes in her hands and her feet. 2. Height 4 feet 9 inches, 135 pounds, BMI is 29. 3. Vital signs: Blood pressure 141/58, pulse 86, respiratory rate 16, room air saturation is 97%. 4. Pain intensity 10/10 with no medications. 5. Fall risk. The patient uses a walker. Sometimes her legs give out because they are not stable. 6. Blood thinner. The patient is not on a blood thinning medication. 7. Hypertension. The patient is being treated for hypertension. 8. Opioids greater than 6 weeks. The patient receives medication from the pain clinic. 9. Risk assessment tool, moderate for opioid use. 10. Functional assessment tool 58/70. 11. Recreational drug use. The patient denies. 12. Tobacco: The patient has never smoked. 13. Alcohol. The patient denies use of alcoholic beverages. PHYSICAL EXAMINATION: GENERAL: The patient is a well-developed, well-nourished white female. [address] [address] PAIN MANAGEMENT CONSULTATION Name: ALEJANDRA RICO [facility] #[facility] [id number] Admission: 06/02/20 Attend Phys: Kiara Schwartz MD Discharge: Date of : 33 Report #: [id number] her stated age. She is 85 years. She is alert and oriented. Her affect is appropriate. She is accompanied by her daughter. NECK: The patient complains of pain in her neck and some discomfort in the left neck area. Also, has some left shoulder discomfort. Notes some pain that radiates down the side of her head. HEART: Regular. LUNGS: Decreased breath sounds. ABDOMEN: Nontender. EXTREMITIES: Upper extremity muscle strength judged to be 4-/5 for the major muscle groups in the upper extremity. The patient has scoliosis. Her gait is somewhat unsteady. Uses a walker. Muscle strength in the upper extremity, 4+ for the major muscle groups in the upper extremity and 4/5 for the major muscle groups in the lower extremity. IMPRESSION: 1. Chronic low back pain. 2. Hypertension. 3. Pain that radiates into the occipital area. 4. Chronic obstructive pulmonary disease. 5. Depression. 6. Osteoarthritis. 7. Scoliosis. 8. Complex medical management using opioids. RECOMMENDATIONS: We discussed treatment options with the patient. At this juncture, we will continue with her medications. She feels that the medications are beneficial. She rates her pain as a 10/10 without her medications. Her daughter continues to help her with her health issues. A script for her medications has been reviewed and sent to the pharmacy. She will continue with Butrans patches 7.5 mg every 7 days. She will also continue with Percocet 2-3 tabs daily for breakthrough pain. The patient will continue to use Voltaren gel to the affected area. We would like to thank you for letting us participate in her care. We hope she continues to improve. By: 0822 Kiara Schwartz MD /abilio
[2020-06-02 10:24] VITALS: BP 141/58
--- NOTE | 2020-06-02 10:47 | NUR ---
Pain Clinic Assessment: 1. History of Osteoarthritis: back neck History of Rheumatoid Arthritis: RIGHT HAND YES 2. Height: 4 ft. 9 in. 144.8 cm. Weight: 135.0 lb. oz. 61.236 kg. Patient's BMI: 29.2 3. Vital Signs: BP: 141/58 Pulse: 86 Resp: 16 Temp: 02 Sat: 97 ECG Mon: 4. Pain Intensity: 10 with no med 5. Fall Risk: Dizziness: N Needs help standing or walking: Y Fallen in the last 3 months: Y Fall risk comments: USES WALKER-DIDNT BRING TODAY, FALLEN 2-3 TIMES SINCE LAST VISIT- LEGS ARE WEAK GAVE OUT, AND UNSTEADY ON FEET 6. Patient on Blood Thinner: None 7. History of Hypertension: Y 8. Opioid Therapy greater than 6 weeks: Y Opiate Contract Signed: 05/06/16 9. Risk Assessment Tool Provided: mod risk 10. Functional Assessment Tool: 58/70 11. Recreational Drug Use: Never Drug Type: Tobacco Use: Never Smoker Tobacco Type: Amount or Packs/day: How Many Years: Alcohol Use: No Frequency: Quant:
== END ==
LOC: PAIN 06:55
PROVIDERS: ATTEND Anesthesiology Pain Medicine
DX: I10 Essential (primary) hypertension (principal); J44.9 Chronic obstructive pulmonary disease, unspecified; M19.90 Unspecified osteoarthritis, unspecified site; Z79.899 Other long term (current) drug therapy; Z79.891 Long term (current) use of opiate analgesic

== ENCOUNTER → 2020-08-04 | Outpatient (CLI) | payer OTHER ==
[~2020-08-04] VITALS: Ht 144.8 cm; Wt 58.7 kg
[~2020-08-04] MED LIST changes: +BUTRANS1 EAC1 TRANSDERM
[2020-08-04 10:05] VITALS: BP 151/72
--- NOTE | 2020-08-04 10:11 | NUR ---
Pain Clinic Assessment: 1. History of Osteoarthritis: back neck History of Rheumatoid Arthritis: RIGHT HAND YES 2. Height: 4 ft. 9 in. 144.8 cm. Weight: 129.4 lb. oz. 58.695 kg. Patient's BMI: 28.0 3. Vital Signs: BP: 151/72 Pulse: 85 Resp: 18 Temp: 02 Sat: 96 ECG Mon: 4. Pain Intensity: 10 with no med;2 NOW 5. Fall Risk: Dizziness: N Needs help standing or walking: N Fallen in the last 3 months: Y Fall risk comments: USES WALKER-DIDNT BRING TODAY, FALLEN 2-3 TIMES SINCE LAST VISIT- LEGS ARE WEAK GAVE OUT, AND UNSTEADY ON FEET 6. Patient on Blood Thinner: None 7. History of Hypertension: Y 8. Opioid Therapy greater than 6 weeks: Y Opiate Contract Signed: 05/06/16 9. Risk Assessment Tool Provided: mod risk 10. Functional Assessment Tool: 58/ 11. Recreational Drug Use: Never Drug Type: Tobacco Use: Never Smoker Tobacco Type: Amount or Packs/day: How Many Years: Alcohol Use: No Frequency: Quant:
--- NOTE | 2020-08-31 14:52 | HPC ---
[facility] [place] [address] PAIN MANAGEMENT CONSULTATION Name: ALEJANDRA RICO [id number] Admission: 08/04/20 Attend Phys: Kiara Schwartz MD Discharge: Date of : 33 Report #: [id number] THIS REPORT FOR: cc: Pedro Anne MD,Pedro Schwartz,Kiara Boyle MD ~ CC: Pedro Schwartz DATE OF SERVICE: 08/04/2020 CHIEF COMPLAINT: Low back, cervical neck pain. HISTORY: The patient is an 85-year-old female who has been followed in the pain clinic. She continues to have pain and discomfort, which is problematic. She feels that her medications continue to be helpful. She slipped in the shower. She did not need hospitalization. She does use a walker. She has fallen 2-3 times since her last visit. She feels that her legs sometimes give out. They are somewhat unstable. Her daughter feels that she should have a chair to rest on in the shower when she is taking one. She suffers from rheumatoid arthritis. She finds that her medications are beneficial and has returned for renewal of the medications. ALLERGIES: SULFA. CURRENT MEDICATIONS: Carafate, oxycodone 5/325, Voltaren gel to the affected area q.i.d., prednisone, Breo, amlodipine, Singulair, Protonix, hydralazine, Combivent, Advair, Bentyl, bisacodyl, bisacodyl, Paxil, Butrans patch every 7 days. PAIN CLINIC ASSESSMENT AND PQRS: 1. The patient has osteoarthritic changes in her neck as well as in her back. She has some rheumatoid arthritic changes in her hands and her feet. 2. Height 5 feet 9 inches, weight 129 pounds, BMI is 28. 3. Vital signs: Blood pressure 151/72, pulse 85, respiratory rate 18, room air saturation 96%. 4. Pain intensity 10/10 without medications, 2 at this juncture. The patient did run out of her medications. 5. Fall history: The patient slipped in the shower. Her daughter feel she should get a chair. 6. Blood thinner: The patient is not on a blood thinning medication. 7. Hypertension: The patient is being treated for hypertension. 8. Opioids greater than 6 weeks: The patient receives medication from [facility], pain clinic. 9. Risk assessment tool: Moderate for opioid use. 10. Functional assessment tool: Reviewed, [place] [address] PAIN MANAGEMENT CONSULTATION Name: ALEJANDRA RICO Simon Room #: REG [facility]#: [id number] Admission: 08/04/20 Attend Phys: Kiara Schwartz MD Discharge: Date of : 33 Report #: [id number] 11. Recreational drug use: The patient denies. 12. Tobacco: The patient has never smoked. 13. Alcohol. The patient denies frequent use of alcoholic beverages. PHYSICAL EXAMINATION: GENERAL: The patient is a well-developed, well-nourished 85-year-old female. She is alert and oriented. She is accompanied by her daughter. Daughter helps with her history. NECK: Without adenopathy. The patient has some discomfort in the left neck area. Also, has some pain in her left shoulder and discomfort. Has pain that radiates down the side of her head. HEART: Regular. LUNGS: Decreased breath sounds. ABDOMEN: Nontender. EXTREMITIES: Upper extremity muscle strength judged to be 4-/5 for the major muscle groups in the upper extremity. The patient has scoliosis. Her gait somewhat unsteady. She uses a walker. Muscle strength in the upper extremities 4+/5 for the major muscle groups and 4/5 for the major muscle groups in the lower extremity. IMPRESSION: 1. Chronic low back pain. 2. Hypertension. 3. Pain radiating into the occipital area. 4. Chronic obstructive pulmonary disease. 5. Depression. 6. Osteoarthritis. 7. Scoliosis. 8. Complex medical management using opioids. 9. Slip and fall in the bathtub. The patient should use a chair to help steady herself when she baths. RECOMMENDATIONS: We discussed treatment options with the patient. At this juncture, we will continue with her medications. She is able to take her medications. She is not having any problems with mentation associated with the medications. She feels that it provides pain relief. We have discussed the benefits of using a chair in the bathroom. We explained to the patient with the hard surfaces if she were to fall, she could have a bad outcome. We also encouraged her to get a bicycle helmet, while she is in the bathroom should she fall and hurt hit her head she might have a less problematic outcome. She states that she will consider these items and suggestions. Her daughter is hoping that she will. A script for her medications of Percocet 2-3 tablets every 4-6 hours have been written. The patient will also use Voltaren gel to the affected area. She will continue with the Butrans patches 75 mg every 7 days. She did run out of patches and therefore noted an increase in her pain and discomfort. [address] [address] PAIN MANAGEMENT CONSULTATION Name: ALEJANDRA RICO [id number] Admission: 08/04/20 Attend Phys: Kiara Schwartz MD Discharge: Date of : 33 Report #: [id number] We would like to thank you for letting us participate in her care. We hope she continues to improve. <ELECTRONICALLY SIGNED> By: Kiara Schwartz MD 08/31/20 1452 [id number] 0233 Kiara Schwartz MD /PMT
== END ==
LOC: PAIN 06:54
PROVIDERS: ATTEND Anesthesiology Pain Medicine
DX: M54.5 Low back pain (principal); M54.2 Cervicalgia; I10 Essential (primary) hypertension; J44.9 Chronic obstructive pulmonary disease, unspecified; F32.9 Major depressive disorder, single episode, unspecified; M19.90 Unspecified osteoarthritis, unspecified site; M41.9 Scoliosis, unspecified; F11.20 Opioid dependence, uncomplicated; Z79.899 Other long term (current) drug therapy

== ENCOUNTER → 2020-10-06 | Outpatient (CLI) | payer OTHER ==
[~2020-10-06] VITALS: Ht 144.8 cm; Wt 59.6 kg
[~2020-10-06] MED LIST changes: +PROAIR HFA8.5 GM INH
[2020-10-06 08:01] VITALS: BP 141/79
--- NOTE | 2020-10-06 08:10 | NUR ---
Pain Clinic Assessment: 1. History of Osteoarthritis: back neck History of Rheumatoid Arthritis: RIGHT HAND YES 2. Height: 4 ft. 9 in. 144.8 cm. Weight: 131.4 lb. oz. 59.603 kg. Patient's BMI: 28.4 3. Vital Signs: BP: 141/79 Pulse: 77 Resp: 16 Temp: 02 Sat: 97 ECG Mon: 4. Pain Intensity: 8 5. Fall Risk: Dizziness: N Needs help standing or walking: N Fallen in the last 3 months: Y Fall risk comments: USES WALKER-DIDNT BRING TODAY, FALLEN 2-3 TIMES SINCE LAST VISIT- LEGS ARE WEAK GAVE OUT, AND UNSTEADY ON FEET 6. Patient on Blood Thinner: None 7. History of Hypertension: Y 8. Opioid Therapy greater than 6 weeks: Y Opiate Contract Signed: 05/06/16 9. Risk Assessment Tool Provided: mod risk 10. Functional Assessment Tool: 58/70 11. Recreational Drug Use: Never Drug Type: Tobacco Use: Never Smoker Tobacco Type: Amount or Packs/day: How Many Years: Alcohol Use: No Frequency: Quant:
[2020-10-06 10:55] VITALS: BP 115/78
== END ==
LOC: PAIN 06:49
PROVIDERS: ATTEND Anesthesiology Pain Medicine
DX: M54.5 Low back pain (principal); G89.29 Other chronic pain; I10 Essential (primary) hypertension; M54.81 Occipital neuralgia; J44.9 Chronic obstructive pulmonary disease, unspecified; F32.9 Major depressive disorder, single episode, unspecified; M19.90 Unspecified osteoarthritis, unspecified site; Z79.891 Long term (current) use of opiate analgesic

== ENCOUNTER → 2020-11-29 | Outpatient (CLI) | payer OTHER ==
[~2020-11-29] VITALS: Ht 144.8 cm; Wt 60.7 kg
[~2020-11-29] MED LIST changes: +ALBUTEROL2.5 MG/31 INH
[2020-11-29 09:02] VITALS: BP 142/71
== END ==
LOC: PAIN 06:39
PROVIDERS: ATTEND Anesthesiology Pain Medicine
DX: M54.5 Low back pain (principal); G89.29 Other chronic pain; I10 Essential (primary) hypertension; J44.9 Chronic obstructive pulmonary disease, unspecified; F32.9 Major depressive disorder, single episode, unspecified; M19.90 Unspecified osteoarthritis, unspecified site; M41.9 Scoliosis, unspecified; F11.20 Opioid dependence, uncomplicated; Z88.8 Allergy status to other drugs, medicaments and biological substances; Z79.899 Other long term (current) drug therapy

== ENCOUNTER → 2021-02-02 | Outpatient (CLI) | payer OTHER ==
[~2021-02-02] VITALS: Ht 144.8 cm; Wt 58.5 kg
[2021-02-02 09:33] VITALS: BP 160/68
--- NOTE | 2021-02-02 09:36 | NUR ---
Pain Clinic Assessment: 1. History of Osteoarthritis: back neck History of Rheumatoid Arthritis: RIGHT HAND YES 2. Height: 4 ft. 9 in. 144.8 cm. Weight: 129.0 lb. oz. 58.514 kg. Patient's BMI: 27.9 3. Vital Signs: BP: 160/68 Pulse: 67 Resp: 16 Temp: 02 Sat: 96 ECG Mon: 4. Pain Intensity: 8 5. Fall Risk: Dizziness: N Needs help standing or walking: Y Fallen in the last 3 months: N Fall risk comments: USES WALKER 6. Patient on Blood Thinner: None 7. History of Hypertension: Y 8. Opioid Therapy greater than 6 weeks: Y Opiate Contract Signed: 05/06/16 9. Risk Assessment Tool Provided: mod risk 10. Functional Assessment Tool: 58/ 11. Recreational Drug Use: Never Drug Type: Tobacco Use: Never Smoker Tobacco Type: Amount or Packs/day: How Many Years: Alcohol Use: No Frequency: Quant:
== END ==
LOC: PAIN 07:10
PROVIDERS: ATTEND Anesthesiology Pain Medicine
DX: Z76.0 Encounter for issue of repeat prescription (principal); M54.2 Cervicalgia; R51.9 Headache, unspecified; M25.562 Pain in left knee; M25.552 Pain in left hip; M79.605 Pain in left leg; G89.29 Other chronic pain; M06.841 Other specified rheumatoid arthritis, right hand; F32.9 Major depressive disorder, single episode, unspecified; Z79.899 Other long term (current) drug therapy

== ENCOUNTER → 2021-04-04 | Outpatient (CLI) | payer OTHER ==
[~2021-04-04] VITALS: Ht 144.8 cm; Wt 58.2 kg
[~2021-04-04] MED LIST changes: +VOLTAREN ARTHRI20 GM TOP
[2021-04-04 08:41] VITALS: BP 153/80
--- NOTE | 2021-04-04 08:56 | NUR ---
Pain Clinic Assessment: 1. History of Osteoarthritis: back neck History of Rheumatoid Arthritis: RIGHT HAND YES 2. Height: 4 ft. 9 in. 144.8 cm. Weight: 128.2 lb. oz. 58.151 kg. Patient's BMI: 27.7 3. Vital Signs: BP: 153/80 Pulse: 74 Resp: 14 Temp: 02 Sat: 100 ECG Mon: 4. Pain Intensity: 10 5. Fall Risk: Dizziness: N Needs help standing or walking: Y Fallen in the last 3 months: N Fall risk comments: USES WALKER 6. Patient on Blood Thinner: None 7. History of Hypertension: Y 8. Opioid Therapy greater than 6 weeks: Y Opiate Contract Signed: 05/06/16 9. Risk Assessment Tool Provided: mod risk 10. Functional Assessment Tool: 58/ 11. Recreational Drug Use: Never Drug Type: Tobacco Use: Never Smoker Tobacco Type: Amount or Packs/day: How Many Years: Alcohol Use: No Frequency: Quant:
== END ==
LOC: PAIN 06:49
PROVIDERS: ATTEND Anesthesiology Pain Medicine
DX: M54.5 Low back pain (principal); G89.29 Other chronic pain; I10 Essential (primary) hypertension; M19.90 Unspecified osteoarthritis, unspecified site; F32.9 Major depressive disorder, single episode, unspecified; Z79.899 Other long term (current) drug therapy; Z79.891 Long term (current) use of opiate analgesic; Z88.2 Allergy status to sulfonamides

== ENCOUNTER → 2021-07-04 | Outpatient (CLI) | payer OTHER ==
[~2021-07-04] VITALS: Ht 144.8 cm; Wt 54.2 kg
[~2021-07-04] MED LIST changes: +BUPRENORPHINE1 EAC1 TRANSDERM
--- NOTE | 2021-07-04 09:26 | NUR ---
Pain Clinic Assessment: 1. History of Osteoarthritis: back neck History of Rheumatoid Arthritis: RIGHT HAND YES 2. Height: ft. in. cm. Weight: lb. oz. kg. Patient's BMI: 3. Vital Signs: BP: Pulse: Resp: Temp: 02 Sat: ECG Mon: 4. Pain Intensity: 8 5. Fall Risk: Dizziness: N Needs help standing or walking: N Fallen in the last 3 months: Y Fall risk comments: USES WALKER 6. Patient on Blood Thinner: None 7. History of Hypertension: Y 8. Opioid Therapy greater than 6 weeks: Y Opiate Contract Signed: 05/06/16 9. Risk Assessment Tool Provided: mod risk 10. Functional Assessment Tool: / 11. Recreational Drug Use: Never Drug Type: Tobacco Use: Never Smoker Tobacco Type: Amount or Packs/day: How Many Years: Alcohol Use: No Frequency: Quant:
[2021-07-04 10:23] VITALS: BP 161/74
== END ==
LOC: PAIN 06:51
PROVIDERS: ATTEND Anesthesiology Pain Medicine
DX: M54.2 Cervicalgia (principal); M25.552 Pain in left hip; M25.562 Pain in left knee; I10 Essential (primary) hypertension; M54.50 Low back pain, unspecified; J44.9 Chronic obstructive pulmonary disease, unspecified; M19.90 Unspecified osteoarthritis, unspecified site; M41.9 Scoliosis, unspecified; F34.89 Other specified persistent mood disorders; Z88.8 Allergy status to other drugs, medicaments and biological substances; Z79.899 Other long term (current) drug therapy

== ENCOUNTER 2021-09-07 09:56 | Inpatient (IN) | payer OTHER ==
[~2021-09-07] VITALS: Ht 149.9 cm; Wt 50.3 kg
[2021-09-07 10:10] VITALS: BP 146/77
[2021-09-07 10:55] LABS: ABSOLUTE NEUTROPHILS 7.4 thou/uL (1.4-8.2); BASOPHILS 0.6 % (0.0-2.0); EOSINOPHILS 0.3 % (0.0-3.0); HEMATOCRIT 40.1 % (37.0-47.0); HEMOGLOBIN 12.7 gm/dL (12.0-15.0); LYMPHOCYTES 16.2 % (24.0-44.0); MCH 27.2 pg (26.0-34.0); MCHC 31.6 g/dL (28.0-37.0); MONOCYTES 6.9 % (1.0-8.0); PLATELET COUNT 402 thou/uL (150-400); RBC 4.67 mil/uL (4.20-5.00); RDW 16.6 % (10.5-14.5); WBC 9.7 thou/uL (4.0-11.0)
[2021-09-07 11:13] LABS: CALCIUM 9.1 mg/dL (8.5-10.1); CREATININE 0.9 mg/dL (0.6-1.0); POTASSIUM 4.6 mmol/L (3.5-5.1)
[2021-09-07 11:21] LABS: ALBUMIN 2.8 g/dL (3.4-5.0); TOTAL BILIRUBIN 0.6 mg/dL (0.2-1.0); TOTAL PROTEIN 6.8 g/dL (6.4-8.2)
[2021-09-07 15:34] LABS: FOLIC ACID 20.3 ng/mL (8.6-58.9)
--- NOTE | 2021-09-07 16:54 | NUR ---
Ct notified pt has IV access and is ready for her CT w/contrast.
--- NOTE | 2021-09-07 17:29 | NUR ---
SHALINI AUTOMOTIVE SALESPERSON REPORTS THAT SHE FLUSHED PT'S NEW IV LINE AND IT WAS PATENT SHE THEN ATTEMPTED TO PUT PT ON TRANSFER BOARD AND THEN SHE NOTED PT'S IV WAS NOWHERE TO BE FOUND
[2021-09-07 19:06] VITALS: BP 146/77
[2021-09-07 19:58] VITALS: BP 183/65
[2021-09-07] MEDS ORDERED: PREDNISONE 10 M10 MG PO (20:03)
[2021-09-07] MEDS ORDERED: BREO ELLIPTA 21 EACH INH (20:04)
[2021-09-07] MEDS ORDERED: ESOMEPRAZOLE MA40 MG PO (20:04)
[2021-09-07] MEDS ORDERED: LOSARTAN POTAS100 MG PO (20:05)
[2021-09-07] MEDS ORDERED: FLONASE 0.05%50 MCG NASAL (20:05)
--- NOTE | 2021-09-07 20:16 | NUR ---
WHEEZES IN ALL LOBES. PULSE OX 93-94% ON 2LITERS. NOTIFIED RT OF PATIENT'S NEW ROOM AND NEED FOR NEBULIZER TREATMENT.
[2021-09-08 01:28] VITALS: BP 150/72
[2021-09-08 05:46] VITALS: BP 169/86
[2021-09-08 06:12] LABS: ABSOLUTE NEUTROPHILS 2.9 thou/uL (1.4-8.2); BASOPHILS 0.1 % (0.0-2.0); HEMATOCRIT 35.4 % (37.0-47.0); HEMOGLOBIN 11.6 gm/dL (12.0-15.0); LYMPHOCYTES 11.7 % (24.0-44.0); MCH 27.9 pg (26.0-34.0); MCHC 32.7 g/dL (28.0-37.0); MCV 85.4 fL (80.0-100.0); MONOCYTES 5.5 % (1.0-8.0); PLATELET COUNT 360 thou/uL (150-400); POLYS 82.7 % (36.0-66.0); RBC 4.15 mil/uL (4.20-5.00); RDW 16.2 % (10.5-14.5); WBC 3.4 thou/uL (4.0-11.0)
[2021-09-08 06:49] LABS: CALCIUM 8.3 mg/dL (8.5-10.1); CREATININE 0.9 mg/dL (0.6-1.0); MAGNESIUM 2.4 mg/dL (1.8-2.4); POTASSIUM 4.3 mmol/L (3.5-5.1)
--- NOTE | 2021-09-08 11:52 | EKG ---
[address] [email or web address] [address] ELECTROCARDIOGRAM REPORT Name: WALTER RICOHER Simon Room #: 170-15 ADM IN .R.#: [id number] Admission: 09/07/21 Attend Phys: Hai Anthony MD Discharge: Date of : 33 Report #: [id number] [facility] ED Test Date: 2021-09-07 Test Time: 10:18:25 Pat Name: ALEJANDRA RICO Department: Room: 170 Gender: F Straight Line Edger: carlene : 1935 Requested By: Lawrence Belcher Order Number: [id number] MD: Nj Carlos Measurements Intervals [place] Rate: 90 P: 22 AK: 179 QRS: 75 QRSD: 141 T: 27 QT: 381 QTc: 467 Interpretive Statements Sinus rhythm Right bundle branch block Compared to ECG 11/11/2017 14:27:08 Supraventricular complexes are no longer present Electronically Signed On 09-08-2021 11:52:15 [employer] MANAGER by Nj Carlos [email or web address] <ELECTRONICALLY SIGNED> By: Nj Carlos MD, [facility] 09/08/21 1152 1018 1018 Nj Carlos MD, FACC /EPI
[2021-09-08 18:21] VITALS: BP 167/88
[2021-09-08 23:36] VITALS: BP 115/42
[2021-09-09 07:09] LABS: ABSOLUTE NEUTROPHILS 8.4 thou/uL (1.4-8.2); HEMATOCRIT 34.1 % (37.0-47.0); HEMOGLOBIN 10.9 gm/dL (12.0-15.0); LYMPHOCYTES 5.4 % (24.0-44.0); MCH 27.4 pg (26.0-34.0); MCV 85.6 fL (80.0-100.0); MONOCYTES 6.4 % (1.0-8.0); PLATELET COUNT 397 thou/uL (150-400); POLYS 88.2 % (36.0-66.0); RBC 3.99 mil/uL (4.20-5.00); RDW 16.3 % (10.5-14.5); WBC 9.5 thou/uL (4.0-11.0)
[2021-09-09 07:18] LABS: D-DIMER 2.4 ug/mLFEU (0.19-0.50); PROTIME 10.9 Seconds (10.5-12.1)
[2021-09-09 07:35] LABS: ALBUMIN 2.4 g/dL (3.4-5.0); CALCIUM 8.1 mg/dL (8.5-10.1); CREATININE 0.9 mg/dL (0.6-1.0); DIRECT BILIRUBIN 0.1 mg/dL (<0.1-0.2); MAGNESIUM 1.9 mg/dL (1.8-2.4); TOTAL BILIRUBIN 0.3 mg/dL (0.2-1.0); TOTAL PROTEIN 5.7 g/dL (6.4-8.2)
[2021-09-09 20:00] VITALS: BP 132/60
[2021-09-10] VITALS: BP 136/58
[2021-09-10 00:05] LABS: HIV ANTIBODY Non Reactive (Non Reactive)
[2021-09-10 04:14] VITALS: BP 133/60; BP 136/58
[2021-09-10 05:41] LABS: HEMATOCRIT 32.7 % (37.0-47.0); HEMOGLOBIN 10.5 gm/dL (12.0-15.0); MCH 27.5 pg (26.0-34.0); MCHC 32.2 g/dL (28.0-37.0); MCV 85.4 fL (80.0-100.0); RBC 3.83 mil/uL (4.20-5.00); RDW 16.1 % (10.5-14.5); WBC 9.3 thou/uL (4.0-11.0)
[2021-09-10 06:10] LABS: ALBUMIN 2.2 g/dL (3.4-5.0); ANION GAP 9 mmol/L (7-16); BUN 30 mg/dL (7-18); CALCIUM 8.2 mg/dL (8.5-10.1); CHLORIDE 105 mmol/L (98-107); CO2 25 mmol/L (21-32); CREATININE 0.6 mg/dL (0.6-1.0); DIRECT BILIRUBIN < 0.1 mg/dL (<0.1-0.2); GLUCOSE 100 mg/dL (74-106); MAGNESIUM 1.8 mg/dL (1.8-2.4); POTASSIUM 3.8 mmol/L (3.5-5.1); SGOT 34 U/L (15-37); SGPT 25 U/L (30-65); TOTAL BILIRUBIN 0.3 mg/dL (0.2-1.0); TOTAL PROTEIN 5.1 g/dL (6.4-8.2)
[2021-09-10 06:13] LABS: SODIUM 139 mmol/L (136-145)
[2021-09-10 12:29] VITALS: BP 159/59
[2021-09-10 15:39] VITALS: BP 130/53
--- NOTE | 2021-09-10 17:10 | NUR ---
CALLED FOR CARDIO CONSULT @1710 DUE TO NO DOCUMENTATION ON GETTING INTO CONTACT. MAY HAVE BEEN A DUPLICATE CONSULT CALL.
--- NOTE | 2021-09-10 17:10 | NUR ---
86 year old female presents to the ED on 09/07/21 with increasing SOA, dry cough and generalized weakness. The patient tested positive in the ED for COVID and listed as unvaccinated. The patient has been admitted for Covid-19 pneumonia with SARS and respiratory Failure with advanced COPD, NSTEMI, HTN, COPD/Asthma, chronic pain and opiate use with depression. At present the patient is will remain on both antiviral and anti-inflammatory medications and followed by the medical team and is pending cultures. 02 remains at 3 liters per NC. The patient lives currently with Granddaughter Agata Noe and lists as the next of kin at [phone]. CM attempted x2 to reach Agata with no response. As care progresses will await therapy evaluations as OT has been ordered to see recommendations along with the care team. Of note patient was last seen by CM when discharged home with Replaced by [facility] in September the 2019. CM will follow for discharge needs.
[2021-09-10 18:44] VITALS: BP 161/68
[2021-09-10 21:45] VITALS: BP 156/81
[2021-09-11 00:44] VITALS: BP 189/94
[2021-09-11 03:40] VITALS: BP 158/83
--- NOTE | 2021-09-11 05:03 | NUR ---
ADMISSION: PT ARRIVED ON UNIT AT APPROX 2130 FROM ER. ALERT & ORIENTED X 4. PT IS EXTREMELY [place] AND HAS NO HEARING AIDS. CURRENTLY ON 4L O2 NC. PT HAS NO C/O OF PAIN, NAUSEA/VOMITTING. PT IS UP WITH 1 ASSIST TO BSC. PT HAS SOME PERIODS OF INCONTINENCE. SKIN INTACT. PT IS ABLE TO MAKE NEEDS KNOWN. CARE PLAN IN PLACE AND INTERVENTIONS SET. ALL NEEDS ARE MET AT THIS TIME.
[2021-09-11 05:46] LABS: HEMATOCRIT 36.5 % (37.0-47.0); HEMOGLOBIN 11.9 gm/dL (12.0-15.0); MCH 27.9 pg (26.0-34.0); MCHC 32.7 g/dL (28.0-37.0); MCV 85.5 fL (80.0-100.0); RBC 4.28 mil/uL (4.20-5.00); RDW 16.3 % (10.5-14.5); WBC 7.5 thou/uL (4.0-11.0)
[2021-09-11 06:45] LABS: ALBUMIN 2.6 g/dL (3.4-5.0); CALCIUM 8.4 mg/dL (8.5-10.1); CREATININE 0.7 mg/dL (0.6-1.0); DIRECT BILIRUBIN 0.1 mg/dL (<0.1-0.2); MAGNESIUM 1.8 mg/dL (1.8-2.4); POTASSIUM 4.2 mmol/L (3.5-5.1); TOTAL BILIRUBIN 0.5 mg/dL (0.2-1.0); TOTAL PROTEIN 5.9 g/dL (6.4-8.2)
--- NOTE | 2021-09-11 06:46 | NUR ---
RECEIVED CRITICAL LAB RESULTS - GRAM POSITIVE COCCI. NOTIFIED ROAD CONSULTANT AND RECEIVED ORDERS. CONTINUE WITH PLAN OF CARE.
[2021-09-11 07:31] VITALS: BP 171/82
[2021-09-11 11:25] VITALS: BP 159/78
[2021-09-11 14:59] VITALS: BP 130/51
--- NOTE | 2021-09-11 15:25 | NUR ---
PATIENT IS ALERT AND ORIENTED X4 THIS SHIFT. SHE IS ON 4L OF OXYGEN. HER LUNG SOUNDS ARE COARSE AND SHE HAS A NON PRODUCTIVE DRY SOUNDING COUGH. PATIENT IS ON ENHANCED PRECAUTIONS AT THIS TIME. SHE IS MRSA POSITIVE. PATIENT IS CC/ TELE AND HAS RUN SINUS RHYTHM BBB THIS SHIFT. PATIENT HAS HAD ONE EPISODE OF INCONTINENCE THIS SHIFT. PATIENT IS CONTINENT OF BOTH BOWEL AND BLADDER. PATIENTS LAST BM WAS 09/11/21. PATIENT HAS NO SKIN ISSUES AT THIS TIME. CASSANDRA HAS SCDS ON FEET. PATIENT HAS AN IV IN HER RIGHT WRIST THAT HAS HALF NS RUNNING AT 80 ML'S/ HR. PATIENT WILL CONTINUE TO BE MONITORED.
--- NOTE | 2021-09-11 16:41 | NUR ---
SW reviewed chart and spoke with nursing and attending physician. Pt remains in Enhanced Isolation due to COVID. Pt is afebrile and on 4L of O2. Pt is on IV abx, IV steroids and Remdesivir. PT/OT evals ordered to assist with discharge needs. SW is following to assist as needed with discharge planning.
[2021-09-11 19:25] VITALS: BP 147/68
--- NOTE | 2021-09-12 00:28 | HC ---
[facility] [place] [address] CONSULTATION Name: ALEJANDRA RICO Room #: 351-P [facility] IN M.R.#: [id number] Admission: 09/07/21 Attend Phys: Hai Anthony MD Discharge: Date of : 33 Report #: [id number] THIS REPORT FOR: cc: Pedro Anne MD,Pedro Anne,Noel Dominguez MD ~ DATE OF SERVICE: 09/08/2021 INFECTIOUS DISEASE CONSULTATION REASON FOR CONSULTATION: I was asked to evaluate concerning COVID-19 pneumonia. HISTORY OF PRESENT ILLNESS: The patient was an 86-year-old with underlying COPD, asthma, previously vaccinated for COVID-19, presents now with shortness of breath, nonproductive cough, decreased appetite and generalized weakness over the last 48 hours. O2 saturation had dropped into the low 80s and was brought into the Emergency Room. Now, she is on 3 liters of oxygen per nasal cannula. She has had a loose cough with no hemoptysis or chest pain. She was very hard of hearing. Therefore, it is difficult to get a reasonable history from her. Her appetite has been poor. She has had no diarrhea, no abdominal pain, no dysrhythmias or chest pain. She has had no report of headaches. She does have chronic pain and opioid use in addition to hypertension and IBS. REVIEW OF SYSTEMS: A 14-point review of system was negative other than what has been described above. ALLERGIES: SULFA. MEDICATIONS: As noted on her MAR, which were reviewed. PAST MEDICAL AND SURGICAL HISTORY: Chronic sinusitis with multiple sinus surgeries, hysterectomy, appendectomy, intestinal tumor, benign. Right inguinal herniorrhaphy, hypertension, asthma, COPD, chronic neck pain, IBS, bilateral cataract extraction, depression, gastroesophageal reflux, hiatal hernia. FAMILY HISTORY: Negative for tuberculosis. SOCIAL HISTORY: Nonsmoker, no significant alcohol intake. PHYSICAL EXAMINATION: GENERAL: She was afebrile and hemodynamically stable. She was alert, cooperative and pleasant, in no acute distress. She was very hard of hearing. She was weak, but able to sit up on her own. She was thin. SKIN: Without rash. HEENT: No palpable adenopathy. Eyes without scleral icterus. Mouth without mucositis. [address] [address] CONSULTATION Name: ALEJANDRA RICO Room #: 351-P [facility] IN ..#: [id number] Admission: 09/07/21 Attend Phys: Hai Anthony MD Discharge: Date of : 33 Report #: [id number] NECK: Supple. CHEST: Barrel chested. LUNGS: Scattered rhonchi. No consolidation. HEART: Regular, without murmur. ABDOMEN: Soft and nontender with no hepatosplenomegaly or mass. EXTREMITIES: Without edema. NEUROLOGIC: Cranial nerves intact except for hard of hearing. Strength in upper and lower extremities was symmetric. LABORATORY DATA: Reviewed. MICROBIOLOGY: Reviewed. IMAGING: Chest x-ray reviewed. IMPRESSION: An 86-year-old with COVID-19 pneumonia and respiratory failure, elevated troponin consistent with a non-ST elevation myocardial infarction, hypertension, asthma, chronic obstructive pulmonary disease, chronic pain syndrome, IBS and a history of depression. RECOMMENDATION: We will continue combination therapy with anti-inflammatory and antiviral therapy. We will also continue with antibiotics pending culture results. If the patient deteriorates further, we will consider IL-6 inhibitor or Janus kinase inhibitor. We will follow laboratory studies and chest x-ray. I discussed with nursing at the bedside regarding plan of care. <ELECTRONICALLY SIGNED> By: Noel Anne MD 09/12/21 0028 1520 00 Noel Anne MD /nt
[2021-09-12 03:03] VITALS: BP 150/47
--- NOTE | 2021-09-12 04:52 | NUR ---
IV on right wrist infiltrated at beginning of shift. Right hand swollen , elevated with pillows.New IV placed on left FA. Cont. on enhanced precaution, afebrile. O2 at 4L/NC with O2 sat > 90%. She does get short of breath with exertion.Denies any pain. Pt. is impulsive , bed alarm on for safety. Up with assist to commode to void.
[2021-09-12 06:32] LABS: HEMATOCRIT 33.3 % (37.0-47.0); HEMOGLOBIN 10.9 gm/dL (12.0-15.0); MCH 27.6 pg (26.0-34.0); MCHC 32.7 g/dL (28.0-37.0); MCV 84.6 fL (80.0-100.0); RBC 3.94 mil/uL (4.20-5.00); RDW 15.8 % (10.5-14.5); WBC 8.2 thou/uL (4.0-11.0)
[2021-09-12 06:50] LABS: ALBUMIN 2.2 g/dL (3.4-5.0); CALCIUM 8.1 mg/dL (8.5-10.1); CREATININE 0.7 mg/dL (0.6-1.0); DIRECT BILIRUBIN 0.2 mg/dL (<0.1-0.2); MAGNESIUM 1.4 mg/dL (1.8-2.4); POTASSIUM 3.8 mmol/L (3.5-5.1); TOTAL BILIRUBIN 0.6 mg/dL (0.2-1.0)
[2021-09-12 07:36] VITALS: BP 153/61
[2021-09-12 11:16] VITALS: BP 191/54
[2021-09-12 11:42] VITALS: BP 136/56
--- NOTE | 2021-09-12 13:58 | NUR ---
NITISH reviewed chart and spoke with nursing and attending physician. Pt remains in Enhanced Isolation due to COVID. Pt is afebrile and on 4L of O2. Pt is on IV meds and Remdesivir. Therapy is working with pt to assist with recommendations for discharge disposition. NITISH placed call to pt's room. No answer. NITISH spoke with pt's dtr, Agata, via phone. Introduced role of SW. Long conversation with pt's dtr regarding current condition and plan of care. Pt's dtr states that pt lives at home with her granddtr. Pt has a walker at home. No steps in the home. Pt's PCP is Dr. Moncho Anne. Pt has used [facility]. No hx of post-acute placement. Pt's dtr states that pt would be against post-acute placement, but may in agreement with [facility]. Pt's dtr requesting an update from pt's nursing and attending physician. NITISH provided Agata's contact info to both nursing and physician. NITISH is following to assist as needed with discharge planning.
[2021-09-12 14:12] LABS: T-SPOT.TB Negative
[2021-09-12 15:39] VITALS: BP 129/50
--- NOTE | 2021-09-12 18:34 | NUR ---
RN ASSUMED PT'S CARE AT 0700AM, PT IS A&OX4, PT IS H&H, PT CAN FOLLOW COMMANDS, PT IS ON O2 4L/MIN/NC, PT 'S VS AND O2SAT ARE STABLE, PT IS CONTINUING IV ABX , IV FLUID,AND TREAT COVID MEDICATIONS, PT DENIES PAIN AND SOB BY THIS TIME.
[2021-09-12 18:58] VITALS: BP 164/77
[2021-09-13 03:57] VITALS: BP 182/71
--- NOTE | 2021-09-13 04:24 | NUR ---
PROGRESS PT A/O X4. UP WITH SBA. ON 4 TO 6 LITERS O2 DESATS WITH ACTIVITY. IV TO LW INTACT INFUSING 1/2NS@80CC/HR ORDERED INTERMITTENT ANTIBIOTICS ADMINISTERED ORDERED. PT DENIES PAIN. LUNG DIMINISHED ON LEFT AND COARSE CRACKLES NOTED ON RIGHT. SLEPT ALL SHIFT VSS, TELE INTACT READING SB. CONTINUE TO MONITOR.
[2021-09-13 07:40] VITALS: BP 151/45
[2021-09-13 11:36] VITALS: BP 126/44
--- NOTE | 2021-09-13 13:54 | NUR ---
SW reviewed chart and spoke with nursing and attending physician. Pt remains in Enhanced Isolation due to COVID. Pt is afebrile and on 4L of O2. Pt remains on IV abx/IV steroids. IV lasix started today. Therapy has been ordered to assist with recommendations for discharge needs. SW is following to assist as needed with discharge planning.
--- NOTE | 2021-09-13 15:41 | NUR ---
assumed care of pt at 0700. pt aox2-3 no acute distress, voicing no concerns. 4l nc. coarse lung sounds. fluids d/c'd. diuretics started. up to chair w/ 1 assist. calls out appropriately. no events on telemetry.
[2021-09-13 16:00] VITALS: BP 100/54
[2021-09-13 20:00] VITALS: BP 139/64
--- NOTE | 2021-09-14 00:28 | NUR ---
PROGRESS PT A/O X4. UP WITH SBA VOIDING QS IN BSC. SCD'S IN PLACE. IV TO LF INTACT FLUSHES WITHOUT DIFFICULTY, IV ANTIBIOTICS ADMINISTERED ORDERED. 2ND ROUND OF REMDESIVIR TO BEGIN IN AM. ON 4 TO 6 LITERS O2 LUNG SOUNDS COARSE IN BASES AND PT HAS AN INFREQUENT UNPRODUCTIVE COUGH, ACCUCHECKS CONTINUE WNL. SKIN C/D/I JUST BRUISING NOTED FROM LABS AND IV'S. PT DENIES PAIN. CONTINUE POC.
[2021-09-14 02:59] LABS: ABSOLUTE NEUTROPHILS 5.7 thou/uL (1.4-8.2); BASOPHILS 0.4 % (0.0-2.0); HEMATOCRIT 33.1 % (37.0-47.0); LYMPHOCYTES 6.8 % (24.0-44.0); MCHC 33.2 g/dL (28.0-37.0); MCV 84.3 fL (80.0-100.0); MONOCYTES 6.3 % (1.0-8.0); PLATELET COUNT 385 thou/uL (150-400); POLYS 86.5 % (36.0-66.0); RBC 3.93 mil/uL (4.20-5.00); RDW 15.5 % (10.5-14.5); WBC 6.6 thou/uL (4.0-11.0)
[2021-09-14 03:28] LABS: ALBUMIN 2.1 g/dL (3.4-5.0); CALCIUM 8.1 mg/dL (8.5-10.1); CREATININE 0.6 mg/dL (0.6-1.0); PHOSPHORUS 3.5 mg/dL (2.5-4.9); POTASSIUM 3.5 mmol/L (3.5-5.1); TOTAL BILIRUBIN 0.7 mg/dL (0.2-1.0); TOTAL PROTEIN 4.5 g/dL (6.4-8.2)
[2021-09-14 04:13] VITALS: BP 165/72
[2021-09-14 07:43] VITALS: BP 141/65
[2021-09-14 09:23] LABS: ALBUMIN 2.6 g/dL (3.4-5.0); CALCIUM 8.4 mg/dL (8.5-10.1); CREATININE 0.8 mg/dL (0.6-1.0); DIRECT BILIRUBIN 0.2 mg/dL (<0.1-0.2); PHOSPHORUS 3.3 mg/dL (2.6-4.7); POTASSIUM 3.7 mmol/L (3.5-5.1); TOTAL BILIRUBIN 0.9 mg/dL (0.2-1.0); TOTAL PROTEIN 5.8 g/dL (6.4-8.2)
--- NOTE | 2021-09-14 13:56 | NUR ---
NITISH reviewed chart with nursing and attending physician. Pt remains in Enhanced Isolation due to COVID. Pt is afebrile and on 1L of O2. Pt is on IV meds and Remdesivir. Pt is progressing towards goals for discharge. [facility] consulted and they can accept pt when she is medically stable. Pt is resistant to staying for rehab. NITISH placed call to pt's room. Pt is not able to hear over the phone due to being [place]. NITISH spoke with pt's dtr, Agata, via phone to provide update and discuss discharge plan. Lengthy discussion with Agata regarding [facility] v. Home with HH. Pt's dtr states pt will not agree to HH, as she has always refused in the past. SW encouraged Agata and family to speak with pt regarding benefits of staying at [facility] for rehab. Family is unable to speak with pt via phone due to pt's poor hearing. Family is trying to find someone with a smartphone, so they could possible facetime with pt to discuss. NITISH updated attending physician. Pt is able to be discharged and made rehab status over the weekend if she is medically stable and agreeable. NITISH is following to assist as needed with discharge planning.
[2021-09-14 16:00] VITALS: BP 116/64
[2021-09-14 19:20] VITALS: BP 117/53
--- NOTE | 2021-09-14 21:47 | NUR ---
PT RESTING IN BED WATCHING TV. KIVAL[place], TV LOUD. ROOM AIR, LUNGS COARSE. PT CALLS FOR ASSIST TO TRANSFER TO BSC. PT STATED HER MEDICATIONS ARE WHAT MAKE HER SICK. PALE SKIN TONE. POSSIBLE DC AM. BED ALARM ON.
[2021-09-15 04:39] VITALS: BP 142/54
[2021-09-15 06:08] LABS: ALBUMIN 2.2 g/dL (3.4-5.0); CREATININE 0.9 mg/dL (0.6-1.0); DIRECT BILIRUBIN 0.2 mg/dL (<0.1-0.2); POTASSIUM 3.2 mmol/L (3.5-5.1); TOTAL BILIRUBIN 0.5 mg/dL (0.2-1.0); TOTAL PROTEIN 4.7 g/dL (6.4-8.2)
[2021-09-15 07:11] VITALS: BP 147/78
[2021-09-15 11:33] VITALS: BP 122/59
[2021-09-15 16:16] VITALS: BP 106/76
[2021-09-15 20:37] VITALS: BP 121/50
--- NOTE | 2021-09-15 22:15 | NUR ---
PT IS ALERT AND ORIENTED BUT VERY [place]. FOLLOWS COMMANDS. UNLABORED ON RA. VSS AFEBRILE. SATS WNL. NO C/O PAIN. PT IS RESTING QUIETLY WATCHING TV.
[2021-09-16 05:24] VITALS: BP 140/65
[2021-09-16 05:34] LABS: HEMATOCRIT 35.5 % (37.0-47.0); HEMOGLOBIN 11.4 gm/dL (12.0-15.0); MCH 27.5 pg (26.0-34.0); MCHC 32.1 g/dL (28.0-37.0); MCV 85.7 fL (80.0-100.0); PLATELET COUNT 329 thou/uL (150-400); RBC 4.15 mil/uL (4.20-5.00); RDW 16.2 % (10.5-14.5); WBC 9.3 thou/uL (4.0-11.0)
[2021-09-16 05:50] LABS: ALBUMIN 2.2 g/dL (3.4-5.0); CALCIUM 8.6 mg/dL (8.5-10.1); CREATININE 0.8 mg/dL (0.6-1.0); DIRECT BILIRUBIN 0.1 mg/dL (<0.1-0.2); PHOSPHORUS 4.1 mg/dL (2.5-4.9); TOTAL BILIRUBIN 0.6 mg/dL (0.2-1.0)
--- NOTE | 2021-09-16 06:08 | NUR ---
PT ALERT KIANA. UP TO BSC INDEPENDENTLY. VSS AFEBRILE. SAT 88% ON RA THIS AM. PLACED PT ON 2LNC. LUNGS COARSE WITH EXPIRATORY WHEEZES NOTED THIS AM. LASIX GIVEN ORDERED. Pt voiding lg amts clear yellow urine. THIS MORNING SB WITH BBB AND PVCS ON MONITOR. INVERTED P WAVES NOTED AROUND 0148 AM POSSIBLY AJR WITH BBB. PT DENIED PAIN OR SOA TONIGHT. NO C/O.
[2021-09-16 07:36] VITALS: BP 122/50
[2021-09-16 11:13] VITALS: BP 134/67
[2021-09-16 12:46] LABS: ABSOLUTE NEUTROPHILS 7.8 thou/uL (1.4-8.2); ANISOCYTOSIS 1+
--- NOTE | 2021-09-16 18:03 | NUR ---
SPOKE WITH PATIENTS [id number] ARNOLD AND I CALLED HER TO ENCOURAGE HER MOTHER-IN LAW TO BECOME A REHAB PATIENT ON 3W...PATIENT IS AGREEABLE AT THIS TIME PER ARNOLD...ARNOLD WANTS TO SPEAK WITH PILY BARILLAS TOMORROW REGARDING REHAB PLANS...MESSAGE SENT TO PILY...
[2021-09-16 19:01] VITALS: BP 138/52
--- NOTE | 2021-09-16 21:03 | NUR ---
PT PROGRESSING SLOWLY TOWARDS D/C GOALS. VSS AFEBRILE. NO C/O PAIN OR SOA PRESENTLY. BED DOWN CALL LIGHTIN REACH. BED ALARM IS ON.
[2021-09-17 04:03] VITALS: BP 124/51
[2021-09-17 04:57] LABS: ALBUMIN 2.3 g/dL (3.4-5.0); CALCIUM 8.7 mg/dL (8.5-10.1); CREATININE 1.1 mg/dL (0.6-1.0); DIRECT BILIRUBIN 0.1 mg/dL (<0.1-0.2); PHOSPHORUS 4.5 mg/dL (2.5-4.9); POTASSIUM 3.4 mmol/L (3.5-5.1); TOTAL BILIRUBIN 0.5 mg/dL (0.2-1.0); TOTAL PROTEIN 4.8 g/dL (6.4-8.2)
--- NOTE | 2021-09-17 06:31 | NUR ---
PT RESTING QUIETLY, VSS AFEBRILE ON RA. NO C/O CP , NO SOA NOTED. PROGRESWSING TOWARDS D/C GOALS.
[2021-09-17 07:14] VITALS: BP 111/559
[2021-09-17 11:14] VITALS: BP 103/48
--- NOTE | 2021-09-17 15:45 | NUR ---
DISCHARGE NOTE: NITISH reviewed chart and spoke with nursing and attending physician. Pt remains in Enhanced Isolation due to COVID. Pt is afebrile and on 2L of O2. Pt is on IV meds. SW discussed case with [facility] animal rehabilitator, who states that they are able to accept pt today if she is agreeable with staying for one week. Pt has gone back and forth with saying she will go to rehab. Pt's family is in agreement with pt staying at [facility] for rehab. NITISH had long discussion with pt's dtr, Agata, via phone. ST evaluated pt and states she is at baseline and has capacity to make her own medical decisions. [facility] animal rehabilitator, pt's nurse and pt's Agata all spoke with pt via conference call to discuss pt staying for rehab prior to returning home. Pt is resistant to having HH to come see her at home. Pt agreeable with staying for one week. NITISH notified attending physician to request discharge orders to be entered. Pt to remain on 3W until out of Enhanced Isolation. NITISH is following to assist as needed with discharge planning.
[2021-09-17 16:26] VITALS: BP 114/61
[2021-09-17] MEDS ORDERED: NORVASC5 MG PO (17:09)
[2021-09-17] MEDS ORDERED: VITAMIN D325 MC2 PO (17:09)
[2021-09-17] MEDS ORDERED: MUCINEX600 MG PO (17:09)
[2021-09-17 19:20] VITALS: BP 133/71
--- NOTE | 2021-09-17 20:02 | NUR ---
PT WATCHING TV RESTING. ROOM AIR 90% O2 SAT, 2L INCREASED TO 93%. LUNGS DIMINIHSED UPPER, WHEEZES BASES. BED ALARM ON. PT USING BSC. PT REMAINS [place]. DUSKY SKIN TONE.
[2021-09-18 02:29] VITALS: BP 138/68
[2021-09-18 05:22] LABS: ALBUMIN 2.4 g/dL (3.4-5.0); CALCIUM 8.7 mg/dL (8.5-10.1); CREATININE 1.2 mg/dL (0.6-1.0); DIRECT BILIRUBIN 0.1 mg/dL (<0.1-0.2); PHOSPHORUS 5.1 mg/dL (2.5-4.9); POTASSIUM 4.7 mmol/L (3.5-5.1); TOTAL BILIRUBIN 0.6 mg/dL (0.2-1.0); TOTAL PROTEIN 5.2 g/dL (6.4-8.2)
[2021-09-18 07:17] VITALS: BP 138/62
[2021-09-18 11:42] VITALS: BP 124/66
--- NOTE | 2021-09-18 15:03 | NUR ---
NITISH reviewed chart and spoke with nursing and attending physician. Enhanced Isolation precautions discontinued this afternoon. [facility] is able to accept pt today. [facility] was unable to admit pt yesterday. Pt is on 2L of O2. Pt is now stating she wants to go home. NITISH spoke with pt's dtr-in-law, Agata, via phone. Lengthy discussion regarding discharge plan. NITISH explained that pt is out of isolation and could move to [facility] if agreeable with staying for rehab. Pt's family would be able to visit her on [facility]. NITISH asked if family would be able to come talk with her to explain their preference of pt staying for rehab. Pt's dtr to call family to see if someone can come to the hospital, as Agata is at work. NITISH discussed that if pt is not agreeable with staying for rehab, then pt could discharge home with HH and possibly home O2. Agata to discuss with pt's family. NITISH updated [facility] rehabilitation services manager, attending physician and Director of Case Mgmt. NITISH is following to assist as needed with discharge planning.
[2021-09-18 15:45] VITALS: BP 141/56
--- NOTE | 2021-09-18 18:30 | NUR ---
ASSUMED PATIENT CARE AT 0700. A/O X3. WORKED WITH PT/OT. STANDBY ASSISTED TO [facility]. WILL DC TO HOME TOMORROW.
[2021-09-18 19:13] VITALS: BP 139/76
--- NOTE | 2021-09-18 20:56 | NUR ---
PT ALERT AND ORIENTED X4. [place] [facility]. FOLLOWS COMMANDS. VSS AFEBRILE. UNLABORED ON 2LNC. DENIED PAIN OR SOA.
--- NOTE | 2021-09-18 21:40 | NUR ---
CLARIFICATION PT HAS A LOW GRADE TEMP THIS EVENING. ID INFORMED UPON ROUNDS PRESENTLY.
[2021-09-19 03:31] VITALS: BP 109/69
--- NOTE | 2021-09-19 05:39 | NUR ---
PT PROGRESSING TOWARDS D/C GOALS. VSS AFEBRILE THIS AM. UNLABORED ON 2LNC. DENIED PAIN OR SOA THIS AM. NO C/O.
[2021-09-19 07:22] VITALS: BP 110/66
[2021-09-19 08:47] VITALS: BP 110/66
[2021-09-19 11:26] VITALS: BP 119/62
--- NOTE | 2021-09-19 12:28 | NUR ---
PATIENT IS ALERT AND ORIENTED X4 THIS SHIFT. SHE IS HARD OF HEARING. THIS RN USTILIZES THE DRY ERASE BOARD IN PATIENTS ROOM TO AIDE IN COMMUNICATION WITH PATIENT. PATIENTS IN ON ROOM AIR AT REST AND HER LUNG SOUNDS ARE DIMINISHED. WHEN PATIENT IS UP MOVING AROUND HER ROOM WITH PHYSICAL THERAPY SHE REQUIRES 6L OF OXYGEN TO MAINTAIN HER SATURATION AT 90%. PATIENT IS CC TELE AND HAS BEEN SINUS ARRYTHMIA WITH A BUNDLE BRANCH BLOCK THIS SHIFT. PATIENT HAS BEEN CONTINENT OF BOTH BOWEL AND BLADDER THIS SHIFT. PATIENT CONTINUES ON ACCU CHECKS BID. PATIENT HAS GENERALIZED BRUSING TO BOTH OF HER ARMS. PATIENT HAS AN IV IN HER LEFT FOREARM THAT IS SALINE LOCKED AND PATENT. PATIENT WILL CONTINUE TO BE MONITORED.
--- NOTE | 2021-09-19 13:39 | NUR ---
Spoke at length with Janey Parmar [phone] and gave overview of Home Health and current discharge needs including 02. Agata is understanding and will be here this evening to take the patient to her home environment with home 02 and follow up per discharge instructions and will work with Home Health to answer specifies of their functions. SW notified and updated.
[2021-09-19 14:26] VITALS: BP 110/66
--- NOTE | 2021-09-19 14:27 | NUR ---
DISCHARGE NOTE: NITISH reviewed chart and spoke with nursing and attending physician. Rest/exercise oximetry completed today. Pt needs 6L of O2 with activity. NITISH faxed testing and script to [facility]. Two portable O2 tanks delivered to nurses station. NITISH notified [facility] liaison. NITISH faxed discharge ppwk to [facility] . Spoke with Debbie in intake to notify of pt's discharge. Debbie will contact the pt/family to coordinate start of care. Contact info for and Pa placed in pt's discharge summary. Director of case mgmt spoke with pt's dtr-in-law, Agata, to discuss discharge plan. Agata to provide transportation home later today. NITISH updated pt's nurse. NITISH also updated [facility] rehab specialist. No additional SW needs identified at this time. NITISH is following to assist as needed with discharge planning.
[2021-09-19 15:37] VITALS: BP 120/79
== END 2021-09-19 18:10 | disposition home health service (06) | DRG 177 ==
LOC: ER 09:56 → EROBS 16:21 → 3W 16:21 → EROBS 09-08 02:10 → 3W 09-10 20:04
PROVIDERS: Emergency Medicine; Hospitalist; Internal Medicine; Nurse Practitioner; Specialist; ADMIT Internal Medicine; ATTEND Internal Medicine
PROC: XW033E5 Introduction of Remdesivir Anti-infective into Peripheral Vein, Percutaneous Approach, New Technology Group 5 (ICD-10-PCS; principal; 2021-09-08)
PROC: 5A0935A Assistance with Respiratory Ventilation, Less than 24 Consecutive Hours, High Flow/Velocity Cannula (ICD-10-PCS; 2021-09-13)
DX: U07.1 COVID-19 (principal); I21.4 Non-ST elevation (NSTEMI) myocardial infarction; J12.82 Pneumonia due to coronavirus disease 2019; J96.21 Acute and chronic respiratory failure with hypoxia; E43 Unspecified severe protein-calorie malnutrition; J44.0 Chronic obstructive pulmonary disease with (acute) lower respiratory infection; J44.1 Chronic obstructive pulmonary disease with (acute) exacerbation; R78.81 Bacteremia; I10 Essential (primary) hypertension; J32.9 Chronic sinusitis, unspecified; G89.29 Other chronic pain; E87.6 Hypokalemia; I25.10 Atherosclerotic heart disease of native coronary artery without angina pectoris; K21.9 Gastro-esophageal reflux disease without esophagitis; M19.90 Unspecified osteoarthritis, unspecified site; H91.90 Unspecified hearing loss, unspecified ear; F41.9 Anxiety disorder, unspecified; I45.10 Unspecified right bundle-branch block; R53.81 Other malaise; M54.2 Cervicalgia; K58.9 Irritable bowel syndrome, unspecified; K44.9 Diaphragmatic hernia without obstruction or gangrene; F32.A Depression, unspecified; Z28.21 Immunization not carried out because of patient refusal; Z90.710 Acquired absence of both cervix and uterus; Z90.49 Acquired absence of other specified parts of digestive tract; Z98.42 Cataract extraction status, left eye; Z98.41 Cataract extraction status, right eye; Z79.899 Other long term (current) drug therapy; Z88.2 Allergy status to sulfonamides; Z87.891 Personal history of nicotine dependence; Z79.891 Long term (current) use of opiate analgesic; Z86.018 Personal history of other benign neoplasm; Z68.22 Body mass index [BMI] 22.0-22.9, adult; I25.2 Old myocardial infarction
CPT/HCPCS: 10879